=== PATIENT | male | born 1935 | race Caucasian/White ===

== ENCOUNTER 2018-09-29 15:40 | Inpatient (IN) ==
--- NOTE | 2018-09-29 16:16 | ED ---
HPI General Chief complaint: Urogenital-Male Stated complaint: Time Seen by Provider: 09/29/18 16:13 Source: patient Mode of arrival: ambulatory Limitations: no limitations History of Present Illness HPI Narrative: 83-year-old male patient with history of COPD presents to the ER today because he started having blood in his urine and dribbling today. He has not been feeling ill, he denied any fevers, abdominal pains, or other issues. He has not had problems with hematuria in the past. He denies any dysuria. Modifying Factors: None Associated Signs & Symptoms: hematuria Risk Factors: None Related Data Home Medications Medication Instructions Recorded Confirmed aspirin 81 mg PO DAILY 09/29/18 09/29/18 fluticasone-vilanterol [Breo 1 inh INHALATION DAILY 09/29/18 09/29/18 Ellipta] furosemide 20 mg PO DAILY 09/29/18 09/29/18 potassium chloride 10 meq PO BID 09/29/18 09/29/18 Allergies Allergy/AdvReac Type Severity Reaction Status Date / Time No Known Allergies Allergy Verified 09/29/18 16:09 Review of Systems ROS: all other systems reviewed are negative REPLACED BY [facility] Medical History Medical History BPH (benign prostatic hyperplasia) (Acute) COPD (chronic obstructive pulmonary disease) (Acute) Social History Social History Substance History: No History of Abuse Second Hand Smoke Exposure: Yes Smoking Status: Former smoker Tobacco Type: Cigarettes How Often Do You Have a Drink Containing Alcohol: Never Recent Travel in [facility] within the Last 8 Weeks: No Recent Out of Country Travel within the Last 8 Weeks: No Immunization History Tetanus Immunization: Unsure Exam Narrative Exam Narrative: GENERAL: Well-developed elderly white male patient currently in mild distress. Awake and oriented x3. SKIN: Focused skin assessment warm/dry. HEAD: Atraumatic. Normocephalic. EYES: Pupils equal and round. No scleral icterus. No injection or drainage. ENT: No nasal bleeding or discharge. Mucous membranes pink and moist. NECK: Trachea midline. No JVD. CARDIOVASCULAR: Regular rate and rhythm. No murmur appreciated. RESPIRATORY: No accessory muscle use. Mild wheezing bilaterally. Breath sounds equal bilaterally. GASTROINTESTINAL: Abdomen soft, non-tender, nondistended. Hepatic and splenic margins not palpable. GENITOURINARY: Testes descended bilaterally without evidence of rotation. No lesions or erythema. There is notable dribbling and blood clots at the urethral meatus. MUSCULOSKELETAL: No obvious deformities. No clubbing. No cyanosis. No edema. NEUROLOGICAL: Awake and alert. No obvious cranial nerve deficits. Motor grossly within normal limits. Normal speech. PSYCHIATRIC: Appropriate mood and affect; insight and judgment normal. Course Initial Documented Vital Signs Temperature 98.4 F 09/29/18 15:51 Pulse Rate 76 09/29/18 15:51 Respiratory Rate 20 09/29/18 15:51 Blood Pressure 147/65 H 09/29/18 15:51 Pulse Oximetry 97 09/29/18 15:51 Last Documented Vital Signs Temperature 98.4 F 09/29/18 15:51 Pulse Rate 71 09/29/18 17:59 Respiratory Rate 18 09/29/18 17:59 Blood Pressure 150/66 H 09/29/18 17:59 Pulse Oximetry 98 09/29/18 17:59 Sign Out Sign Out Data: Patient Sign Out occurred on 09/29/18 at 18:06. Patient's care was discussed, and care was transferred from Flaco Sidhu MD to Shawanda Fisher. Sign Out Comment: Case is signed out at [address] David awaiting lab work, CAT scan and workup. Disposition based on findings. Last updated by Flaco Sidhu MD at 09/29/18 17:00 Post-Handoff Eval: This patient was signed out to me at 5 PM pending workup for gross hematuria. CT scan is concerning for bladder cancer. This patient has no reliable follow- up. He is being admitted for further evaluation. Discharge Plan Discharge Disposition Patient Disposition: 30 Still Patient Discharge Details Diagnosis: Gross hematuria, Bladder mass Physicians Team ED Provider: Shawanda Fisher Primary Care Provider: UNKNOWN, Rxs /Orders / Referrals /Forms Prescriptions: No Action potassium chloride 10 mEq Tablet Extended Release 10 meq PO BID RF: 0 aspirin 81 mg Tablet,Chewable 81 mg PO DAILY RF: 0 furosemide 20 mg Tablet 20 mg PO DAILY RF: 0 fluticasone-vilanterol [Breo Ellipta] 200-25 mcg/dose Blister With Device 1 inh INHALATION DAILY RF: 0 Discharge Interventions Interventions: Vital Signs Last Done: 09/29/18 17:59 Status ED Status: With Doctor Medical Decision Making MDM Narrative Medical Screen Exam Complete: Yes Emergency Medical Condition: Yes Differential Diagnosis Differential Diagnosis: HematuriaUTI versus gross hematuria versus coagulopathy Lab Data Lab results reviewed: Yes I reviewed the patient's lab results. Result diagrams: 09/29/18 16:30 09/29/18 16:30 Lab Results 09/29/18 09/29/18 09/29/18 Range/Units 16:30 16:30 16:30 WBC 14.0 H (4.0-11.0) th/mm3 RBC 2.88 L (4.50-5.90) mil/mm3 Hgb 9.0 L (13.0-17.0) gm/dL Hct 27.4 L (39.0-51.0) % MCV 95.3 (80.0-100.0) fL MCH 31.2 (27.0-34.0) pg MCHC 32.7 (32.0-36.0) % RDW 15.6 (11.6-17.2) % Plt Count 304 (150-450) th/mm3 MPV 8.8 (7.0-11.0) fL Neut % (Auto) 85.4 H (16.0-70.0) % Lymph % (Auto) 7.0 L (9.0-44.0) % [place] % (Auto) 6.4 (0.0-8.0) % Eos % (Auto) 0.8 (0.0-4.0) % Baso % (Auto) 0.4 (0.0-2.0) % Neut # (Auto) 12.0 H (1.8-7.7) th/mm3 Lymph # (Auto) 1.0 (1.0-4.8) th/mm3 [place] # (Auto) 0.9 (0.0-0.9) th/mm3 Eos # (Auto) 0.1 (0.0-0.4) th/mm3 Baso # (Auto) 0.1 (0.0-0.2) th/mm3 WBC Differential . Differential Comment Auto diff final PT 10.1 (9.8-11.6) sec INR 1.0 Ratio APTT 27.3 (23.4-31.7) sec Sodium 143 (136-145) meq/L Potassium 4.8 (3.5-5.1) meq/L Chloride 107 (98-107) meq/L Carbon Dioxide 32.0 (21.0-32.0) meq/L Anion Gap 4 L (5-15) meq/L BUN 41 H (7-18) mg/dL Creatinine 2.15 H (0.60-1.30) mg/dL Estimated GFR 29 L (>89) mL/min Random Glucose 111 H (74-106) mg/dL Calcium 9.2 (8.5-10.1) mg/dL Urine Color (Yellw/Straw) Urine Clarity (Clear) Urine pH (5.0-8.5) Ur Specific [place] (1.002-1.035) Urine Protein (Neg-Trace) mg/dL Urine Glucose (UA) (Negative) mg/dL Urine Ketones (Negative) mg/dL Urine Occult Blood (Negative) Urine Nitrate (Negative) Urine Bilirubin (Negative) Urine Urobilinogen (Less than 2) mg/dL Ur Leukocyte Esterase (Negative) Urine RBC (0-3) /hpf Urine Bacteria (None) /hpf Micro UA Comment Ur Microscopic Review Urine Culture Comments Blood Type Antibody Screen 09/29/18 09/29/18 Range/Units 16:30 17:48 WBC (4.0-11.0) th/mm3 RBC (4.50-5.90) mil/mm3 Hgb (13.0-17.0) gm/dL Hct (39.0-51.0) % MCV (80.0-100.0) fL MCH (27.0-34.0) pg MCHC (32.0-36.0) % RDW (11.6-17.2) % Plt Count (150-450) th/mm3 MPV (7.0-11.0) fL Neut % (Auto) (16.0-70.0) % Lymph % (Auto) (9.0-44.0) % [place] % (Auto) (0.0-8.0) % Eos % (Auto) (0.0-4.0) % Baso % (Auto) (0.0-2.0) % Neut # (Auto) (1.8-7.7) th/mm3 Lymph # (Auto) (1.0-4.8) th/mm3 [place] # (Auto) (0.0-0.9) th/mm3 Eos # (Auto) (0.0-0.4) th/mm3 Baso # (Auto) (0.0-0.2) th/mm3 WBC Differential Differential Comment PT (9.8-11.6) sec INR Ratio APTT (23.4-31.7) sec Sodium (136-145) meq/L Potassium (3.5-5.1) meq/L Chloride (98-107) meq/L Carbon Dioxide (21.0-32.0) meq/L Anion Gap (5-15) meq/L BUN (7-18) mg/dL Creatinine (0.60-1.30) mg/dL Estimated GFR (>89) mL/min Random Glucose (74-106) mg/dL Calcium (8.5-10.1) mg/dL Urine Color Red (Yellw/Straw) Urine Clarity Cloudy H (Clear) Urine pH 6.0 (5.0-8.5) Ur Specific [place] 1.017 (1.002-1.035) Urine Protein 100 H (Neg-Trace) mg/dL Urine Glucose (UA) 50 (Negative) mg/dL Urine Ketones Negative (Negative) mg/dL Urine Occult Blood Moderate H (Negative) Urine Nitrate Negative (Negative) Urine Bilirubin Negative (Negative) Urine Urobilinogen Less than 2 (Less than 2) mg/dL Ur Leukocyte Esterase Negative (Negative) Urine RBC (0-3) /hpf Urine Bacteria Occasional H (None) /hpf Micro UA Comment Cath-culture ind Ur Microscopic Review Not Reportable Urine Culture Comments Cath-cult indicated Blood Type A Positive Antibody Screen Negative Imaging Data Radiologist's impression: Abdomen/Pelvis CT 09/29/18 16:54 CONCLUSION: 1. Intrinsic urinary bladder mass and eccentric wall thickening along the left side suspicious for neoplasm. 2. Obstructive uropathy with mild to moderate hydronephrosis on the right and moderate to severe hydronephrosis on the left. Ureteral obstruction at the ureterovesical junction is a suspected on the left. Right ureteral obstruction may be due to bladder outlet obstruction. 3. Enlarged prostate which cannot be distinguished from the bladder mass. 4. Campos catheter in place with decompression of the bladder. 5. No evidence of local regional lymphadenopathy, pelvic sidewall involvement or destructive bone lesions. 6. 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
[2018-09-29 16:52] LABS: Baso # (Auto) 0.1 th/mm3 (0.0-0.2); Baso % (Auto) 0.4 % (0.0-2.0); Eos # (Auto) 0.1 th/mm3 (0.0-0.4); Eos % (Auto) 0.8 % (0.0-4.0); Hematocrit 27.4 % (39.0-51.0); Mean Corpuscular HGB Conc 32.7 % (32.0-36.0); Mean Corpuscular Hemoglobin 31.2 pg (27.0-34.0); Mean Corpuscular Volume 95.3 fL (80.0-100.0); Mean Platelet Volume 8.8 fL (7.0-11.0); Mono # (Auto) 0.9 th/mm3 (0.0-0.9); Mono % (Auto) 6.4 % (0.0-8.0); Neut % (Auto) 85.4 % (16.0-70.0); Platelet Count 304 th/mm3 (150-450); Red Blood Count 2.88 mil/mm3 (4.50-5.90); Red Cell Distribution Width 15.6 % (11.6-17.2)
[2018-09-29 17:03] LABS: Activated Partial Thrombo Time 27.3 sec (23.4-31.7); Prothrombin Time 10.1 sec (9.8-11.6)
[2018-09-29 17:05] LABS: Calcium 9.2 mg/dL (8.5-10.1); Potassium 4.8 meq/L (3.5-5.1)
--- NOTE | 2018-09-29 17:51 | CT ---
EXAM DATE: 09/29/2018 5:35 PM EST AGE/SEX: 83 years / Male INDICATIONS: Hematuria. CLINICAL DATA: This is the patient's initial encounter. Patient reports that signs and symptoms have been present for 1 day and indicates a pain score of 0/10. MEDICAL/SURGICAL HISTORY: Chronic obstructive pulmonary disease. Benign prostatic hyperplasia. None. RADIATION DOSE: 7.64 CTDI (mGy) COMPARISON: No prior exams available for comparison. TECHNIQUE: Multiple contiguous axial images were obtained through the abdomen. Images were obtained using multiple row detector helical technique. Using automated exposure control and adjustment of the mA and/or kV according to patient size, radiation dose was kept as low as reasonably achievable to o btain optimal diagnostic quality images. DICOM format image data is available electronically for rev iew and comparison. FINDINGS: Lower Lungs: The visualized lower lungs are clear. Liver: The liver has a homogeneous density without space-occupying lesion. There is no dilation of th e biliary tree. Spleen: Homogeneous density without enlargement. Pancreas: Unremarkable without mass or calcification. Kidneys: The renal collecting systems are dilated bilaterally. There is mild to moderate hydronephro sis on the right and moderate to severe hydronephrosis on the left. Hydroureter is identified in both kidneys extending to the urinary bladder. Adrenal Glands: Unremarkable. Aorta: The aorta and proximal iliac vessels are grossly unremarkable without aneurysmal dilation. Bowel/Mesentery: The bowel loops are grossly unremarkable. The cecum and sigmoid colon have a normal configuration. Abdominal Wall: Small umbilical hernia is identified. Retroperitoneum: No evidence of adenopathy in the retrocrural, para-aortic, or deep pelvic regions. Bladder: Campos catheter is identified in place. Intraluminal filling defects and bladder wall thicke darrian is identified. There is thick eccentric thickening of the bladder wall along the left side measu ring almost 4 cm in thickness. Multiple diverticula are seen along the right lateral bladder wall. Th e prostate is enlarged and cannot be distinguished from the bladder wall thickening. There does not appear to be any pelvic sidewall involvement or significant local regional lymphadenopathy. Reproductive Organs: Enlarged prostate with poor zonal delineation. Left-sided seminal vesicular ang le is obliterated. Inguinal: Small subcentimeter lymph nodes are identified. Bony Structures: Advanced degenerative disc disease is identified in the lumbar spine. There are no lytic or blastic lesions. CONCLUSION: 1. Intrinsic urinary bladder mass and eccentric wall thickening along the left side suspicious for n eoplasm. 2. Obstructive uropathy with mild to moderate hydronephrosis on the right and moderate to severe hyd ronephrosis on the left. Ureteral obstruction at the ureterovesical junction is a suspected on the le ft. Right ureteral obstruction may be due to bladder outlet obstruction. 3. Enlarged prostate which cannot be distinguished from the bladder mass. 4. Campos catheter in place with decompression of the bladder. 5. No evidence of local regional lymphadenopathy, pelvic sidewall involvement or destructive bone le sions. 6. 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 Electronically signed by: Mehran Escalante MD 09/29/2018 5:50 PM EST
[2018-09-29 18:31] LABS: Bacteria,Urine Occasional /hpf; Bilirubin,Urine Negative (Negative); Clarity,Urine Cloudy (Clear); Color,Urine Red (Yellw/Straw); Glucose,Urine (UA) 50 mg/dL (Negative); Leukocyte Esterase,Urine Negative (Negative); Nitrite,Urine Negative (Negative); Specific Gravity,Urine 1.017 (1.002-1.035)
[2018-09-29] MEDS ORDERED: Acetaminophen 325 MG Tablet PO PRN (21:11)
[2018-09-29] MEDS ORDERED: Bisacodyl 10 MG Supp RECTAL PRN (21:11)
[2018-09-29] MEDS ORDERED: Sod Chloride 0.9% Inj 1,000 ML IV.CONT SCH (21:15)
--- NOTE | 2018-09-29 21:23 | P.HP ---
History of Present Illness Service: [facility] Primary Care Physician: UNKNOWN History of Present Illness: 83-year-old male with a past medical history significant for COPD presents to the emergency department for evaluation of hematuria. He reports that last night he started noticing blood in his urine. He states that approximately every 30 minutes he will have involuntary leaking of blood from his penis without urination. This is often preceded by deep pelvic pain. He denies any fever/chills. No urinary retention or difficulty with urination. No burning with urination. The patient denies noticing any clots in his urine. He has never had an episode like this before. He just moved from [place] and has not established with a new primary care provider. He is a poor historian Lasix and Brio although he cannot tell me why he takes the Lasix. He denies any chest pain or shortness of breath. No unintentional weight loss. No weakness/ fatigue. Positive pelvic pain. No nausea/vomiting/diarrhea. No lateralizing signs/symptoms. Inpatient Certification: I certify that the inpatient services were ordered in accordance with Medicare regulations governing the order. This includes certification that hospital inpatient services are reasonable and necessary and in the case of services not specified as inpatient-only under 42 CFR 419.22(n), that they are appropriately provided as inpatient services in accordance to with the 2-midnight benchmark under 43 CFR 412.3(e) Review of Systems All other systems reviewed negative except as stated in HPI [facility] - History History Provided By: Patient - Medical History Medical History: Medical History (Last Reviewed 09/29/18 @ 21:17 by Ashwini Silva MD) BPH (benign prostatic hyperplasia) COPD (chronic obstructive pulmonary disease) - Surgical History Surgical History: Surgical History (Last Updated 09/29/18 @ 21:17 by Ashwini Silva MD) No history of previous surgery - Family History Family History: Family History (Last Updated 09/29/18 @ 21:17 by Ashwini Silva MD) Other Family history normal - Tobacco History Second Hand Smoke Exposure: Yes Tobacco Use In Past 30 Days: Yes Smoking Status: Former smoker Tobacco Type: Cigarettes - Alcohol History How Often Do You Have a Drink Containing Alcohol: Never - Substance Use History Substance History: No History of Abuse - Travel History Recent Travel in the [place] Within the Last 8 Weeks: No Recent Travel Out of the Country Within the Last 8 Weeks: No - Immunization History Tetanus Immunization: Unsure Medications and Allergies Active Medications: Active Medications Acetaminophen (Tylenol) 650 mg PO Q4H PRN PRN Reason: Temp > 100.4 Al Hydroxide/Mg Hydroxide (Milk Of Magnesia Liq) 30 ml PO Q12H PRN PRN Reason: Mild Constipation Bisacodyl (Dulcolax Supp) 10 mg RECTAL DAILY PRN PRN Reason: SEVERE CONSITIPATION Fluticasone/Vilanterol (Breo Ellipta 200/25 Mcg Inh) puff INH DAILY HO Furosemide (Lasix) 20 mg PO DAILY HO Sodium Chloride (Ns Inj) 1,000 mls @ 100 mls/hr IV.CONT .Q10H HO Lactulose (Lactulose Liq) 30 ml PO DAILY PRN PRN Reason: SEVERE CONSITIPATION Ondansetron HCl (Zofran Inj) 4 mg IV.PUSH Q6H PRN PRN Reason: NAUSEA OR VOMITING Potassium Chloride (Klor-Con 10) 10 meq PO BID HO Senna/Docusate Sodium (Kristin-Colace) 1 tab PO BID HO Sennosides (Senokot) 17.2 mg PO Q12H PRN PRN Reason: Moderate Constipation Allergies Allergy/AdvReac Type Severity Reaction Status Date / Time No Known Allergies Allergy Verified 09/29/18 16:09 Home Medications Medication Instructions Recorded Confirmed Type aspirin 81 mg PO DAILY 09/29/18 09/29/18 History fluticasone-vilanterol [Breo 1 inh INHALATION DAILY 09/29/18 09/29/18 History Ellipta] furosemide 20 mg PO DAILY 09/29/18 09/29/18 History potassium chloride 10 meq PO BID 09/29/18 09/29/18 History Exam Vital signs: Vital Signs 09/29/18 15:51 09/29/18 15:55 09/29/18 17:59 Temperature 98.4 F Pulse Rate 76 77 71 Respiratory Rate 20 18 18 Blood Pressure 147/65 H 167/77 H 150/66 H Pulse Oximetry 97 99 98 Intake & Output 09/29/18 09/29/18 09/30/18 06:59 18:59 06:59 Weight 82.554 kg Narrative: Gen.: No acute distress Head: Normocephalic. Atraumatic. EENT: Pupils equal round and reactive to light. Nose without drainage. Airway intact. Throat without injection. Cardiovascular: Regular rate and rhythm. No murmurs, rubs or gallops. Respiratory: Lungs clear to auscultation bilaterally. No wheezes or rhonchi. Abdomen: Soft, nontender, nondistended. No peritoneal signs. Musculoskeletal: No gross deformities. No edema. Skin: No obvious rashes or erythema. Neuro: Sensory and motor grossly intact. Cranial nerves II through XII grossly intact. Results - Labs CBC & Chem 7: 09/29/18 16:30 09/29/18 16:30 Labs: Laboratory Results - last 24 hr 09/29/18 09/29/18 09/29/18 16:30 16:30 16:30 WBC 14.0 H RBC 2.88 L Hgb 9.0 L Hct 27.4 L MCV 95.3 MCH 31.2 MCHC 32.7 RDW 15.6 Plt Count 304 MPV 8.8 Neut % (Auto) 85.4 H Lymph % (Auto) 7.0 L [place] % (Auto) 6.4 Eos % (Auto) 0.8 Baso % (Auto) 0.4 Neut # (Auto) 12.0 H Lymph # (Auto) 1.0 [place] # (Auto) 0.9 Eos # (Auto) 0.1 Baso # (Auto) 0.1 WBC Differential . Differential Comment Auto diff final PT 10.1 INR 1.0 APTT 27.3 Sodium 143 Potassium 4.8 Chloride 107 Carbon Dioxide 32.0 Anion Gap 4 L BUN 41 H Creatinine 2.15 H Estimated GFR 29 L Random Glucose 111 H Calcium 9.2 Urine Color Urine Clarity Urine pH Ur Specific [place] Urine Protein Urine Glucose (UA) Urine Ketones Urine Occult Blood Urine Nitrate Urine Bilirubin Urine Urobilinogen Ur Leukocyte Esterase Urine RBC Urine Bacteria Micro UA Comment Ur Microscopic Review Urine Culture Comments Blood Type Antibody Screen 09/29/18 09/29/18 16:30 17:48 WBC RBC Hgb Hct MCV MCH MCHC RDW Plt Count MPV Neut % (Auto) Lymph % (Auto) [place] % (Auto) Eos % (Auto) Baso % (Auto) Neut # (Auto) Lymph # (Auto) [place] # (Auto) Eos # (Auto) Baso # (Auto) WBC Differential Differential Comment PT INR APTT Sodium Potassium Chloride Carbon Dioxide Anion Gap BUN Creatinine Estimated GFR Random Glucose Calcium Urine Color Red Urine Clarity Cloudy H Urine pH 6.0 Ur Specific [place] 1.017 Urine Protein 100 H Urine Glucose (UA) 50 Urine Ketones Negative Urine Occult Blood Moderate H Urine Nitrate Negative Urine Bilirubin Negative Urine Urobilinogen Less than 2 Ur Leukocyte Esterase Negative Urine RBC Urine Bacteria Occasional H Micro UA Comment Cath-culture ind Ur Microscopic Review Not Reportable Urine Culture Comments Cath-cult indicated Blood Type A Positive Antibody Screen Negative - Imaging Impressions Abdomen/Pelvis CT 09/29/18 16:54 CONCLUSION: 1. Intrinsic urinary bladder mass and eccentric wall thickening along the left side suspicious for neoplasm. 2. Obstructive uropathy with mild to moderate hydronephrosis on the right and moderate to severe hydronephrosis on the left. Ureteral obstruction at the ureterovesical junction is a suspected on the left. Right ureteral obstruction may be due to bladder outlet obstruction. 3. Enlarged prostate which cannot be distinguished from the bladder mass. 4. Campos catheter in place with decompression of the bladder. 5. No evidence of local regional lymphadenopathy, pelvic sidewall involvement or destructive bone lesions. 6. 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 Caprini VTE Risk Assessment Caprini VTE Risk Assessment: Moderate/High Risk (score >= 2) Caprini Risk Assessment Model: Point Value = 1 Point Value = 2 Point Value = 3 Point Value = 5 Age 41-60 Minor surgery BMI > 25 kg/m2 Swollen legs Varicose veins or History of unexplained or recurrent spontaneous Oral contraceptives or hormone replacement Sepsis (< 1 month) Serious lung disease, including pneumonia (< 1 month) Abnormal pulmonary function Acute myocardial infarction Congestive heart failure (< 1 month) History of inflammatory bowel disease Medical patient at bed rest Age 61-74 Arthroscopic surgery Major open surgery (> 45 min) Laparoscopic surgery (> 45 min) Malignancy Confined to bed (> 72 hours) Immobilizing plaster cast Central venous access Age >= 75 History of VTE Family history of VTE Factor V Leiden Prothrombin 17005A Lupus anticoagulant Anticardiolipin antibodies Elevated serum homocysteine Heparin-induced thrombocytopenia Other congenital or acquired thrombophilia Stroke (< 1 month) Elective arthroplasty Hip, pelvis, or leg fracture Acute spinal cord injury (< 1 month) Prophylaxis Regimen: Total Risk Factor Score Risk Level Prophylaxis Regimen 0-1 Low Early ambulation 2 Moderate Order ONE of the following: *Sequential Compression Device (SCD) *Heparin 5000 units SQ BID 3-4 Higher Order ONE of the following medications: *Heparin 5000 units SQ TID *Enoxaparin/Lovenox 40 mg SQ daily (WT < 150 kg, CrCl > 30 mL/min) *Enoxaparin/Lovenox 30 mg SQ daily (WT < 150 kg, CrCl > 10-29 mL/min) *Enoxaparin/Lovenox 30 mg SQ BID (WT < 150 kg, CrCl > 30 mL/min) AND/OR *Sequential Compression Device (SCD) 5 or more Highest Order ONE of the following medications: *Heparin 5000 units SQ TID (Preferred with Epidurals) *Enoxaparin/Lovenox 40 mg SQ daily (WT < 150 kg, CrCl > 30 mL/min) *Enoxaparin/Lovenox 30 mg SQ daily (WT < 150 kg, CrCl > 10-29 mL/min) *Enoxaparin/Lovenox 30 mg SQ BID (WT < 150 kg, CrCl > 30 mL/min) AND *Sequential Compression Device (SCD) Assessment and Plan - Plan Assessment/plan: 1. Hematuria/anemia H&H 9.0/27.4 Serial H&H Transfuse as needed CT of the abdomen and pelvis significant for intrinsic urinary bladder mass and wall thickening along the left side suspicious for neoplasm. Obstructive uropathy with mild to moderate hydronephrosis on the right and moderate to severe hydronephrosis on the left. Obstruction at the ureterovesical junction is suspected on the left right ureteral obstruction may be secondary to bladder outlet obstruction. Enlarged prostate which cannot be distinguished from the bladder mass. Urology consulted, appreciate assistance 2. Acute kidney injury/obstructive uropathy Creatinine 2.15, baseline unknown CT results as above Urology consulted as above 3. COPD Continue home Breo FEN N.p.o. Electrolytes: Monitor and replete as needed Avoiding pharmacologic anticoagulation secondary to hematuria/anemia
[2018-09-30 01:00] LABS: Hemoglobin 8.3 gm/dL (13.0-17.0)
[2018-09-30 07:45] LABS: Baso # (Auto) 0.1 th/mm3 (0.0-0.2); Baso % (Auto) 0.7 % (0.0-2.0); Eos % (Auto) 0.2 % (0.0-4.0); Hematocrit 27.8 % (39.0-51.0); Hemoglobin 8.7 gm/dL (13.0-17.0); Lymph # (Auto) 0.7 th/mm3 (1.0-4.8); Lymph % (Auto) 4.5 % (9.0-44.0); Mean Corpuscular HGB Conc 31.3 % (32.0-36.0); Mean Platelet Volume 8.2 fL (7.0-11.0); Mono # (Auto) 0.8 th/mm3 (0.0-0.9); Mono % (Auto) 5.2 % (0.0-8.0); Neut # (Auto) 14.4 th/mm3 (1.8-7.7); Neut % (Auto) 89.4 % (16.0-70.0); Platelet Count 298 th/mm3 (150-450); Red Cell Distribution Width 16.1 % (11.6-17.2); White Blood Count 16.1 th/mm3 (4.0-11.0)
[2018-09-30 08:07] LABS: Alanine Aminotransferase 14 U/L (12-78); Albumin 2.7 g/dL (3.4-5.0); Anion Gap 7 meq/L (5-15); Aspartate Aminotransferase 18 U/L (15-37); Blood Urea Nitrogen 46 mg/dL (7-18); Calcium 9.1 mg/dL (8.5-10.1); Carbon Dioxide 27.8 meq/L (21.0-32.0); Chloride 110 meq/L (98-107); Glomerular Filtration Rate 22 mL/min (>89); Glucose,Random 106 mg/dL (74-106); Potassium 4.7 meq/L (3.5-5.1); Sodium 145 meq/L (136-145)
[2018-09-30 08:10] LABS: Alkaline Phosphatase 58 U/L (45-117); Total Protein 7.3 g/dL (6.4-8.2)
[2018-09-30] MEDS ORDERED: Furosemide 20 MG Tablet PO SCH (09:00)
[2018-09-30] MEDS ORDERED: Belladonna Alkaloid/Opium 60 MG Supp RECTAL PRN (10:17)
[2018-09-30] MEDS: Senna/Docusate Sodium 8.6/50 MG Tablet PO SCH ×2 (10:18→21:48)
[2018-09-30] MEDS: Dextrose 5%/NaCl 0.45% Inj 1,000 ML IV.CONT SCH ×2 (11:56→23:12)
--- NOTE | 2018-09-30 14:06 | P.PNIM ---
Subjective Interval history: 83yo m admitted with gross hematuria found to have a bladder mass. pt seen and examined doing fair, still with gross hematuria complaining of abd pain and cramping, pelvic spasms, denies sob, cp, nv, wants to eat. Physical Exam Vital signs: Last Vital Signs Temp 97.6 F 09/30/18 12:00 Pulse 75 09/30/18 12:00 Resp 17 09/30/18 12:00 BP 163/76 H 09/30/18 12:00 Pulse Ox 97 09/30/18 12:00 Intake & Output 09/28/18 09/29/18 09/30/18 10/01/18 06:59 06:59 06:59 06:59 Intake Total 50 / 50 Balance 50 / 50 Weight 79.1 kg pleasant 83yo w m nad, ox3 mild forgetful heart s1s2 reg no sig mr clicks lungs trace wheeze, no rhonchi full expansion abd soft nondt min tender pos bs ext no edema, no calf tenderness. Urinary Catheter Management Indwelling Urethral Catheter: Cath placed during this visit: yes Urethral indwelling: Yes Reason for continuing: Gross Hematuria Insertion date: 09/29/18 Insertion time: 17:20 Results Labs CBC & Chem 7: 09/30/18 07:29 09/30/18 07:29 Labs: Microbiology 09/29/18 17:48 Catheterized Urine Urine Culture - Preliminary No growth in 24 hours Imaging Imaging: Impressions Abdomen/Pelvis CT 09/29/18 16:54 CONCLUSION: 1. Intrinsic urinary bladder mass and eccentric wall thickening along the left side suspicious for neoplasm. 2. Obstructive uropathy with mild to moderate hydronephrosis on the right and moderate to severe hydronephrosis on the left. Ureteral obstruction at the ureterovesical junction is a suspected on the left. Right ureteral obstruction may be due to bladder outlet obstruction. 3. Enlarged prostate which cannot be distinguished from the bladder mass. 4. Campos catheter in place with decompression of the bladder. 5. No evidence of local regional lymphadenopathy, pelvic sidewall involvement or destructive bone lesions. 6. 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 Assessment and Plan Plan - GROSS HEMATURIA due to bladder mass? - cbi, urology eval - ACUTE RENAL FAILURE DUE TO OBSTRUCTIVE UROPATHY - monitor renal function, consult urology, - BLADDER MASS and HYDRONEPRHOSIS B/L concern for malignancy - urology eval - ANEMIA of acute blood loss due to hematuria, transfuse prn as indicated - HTN - cont bp control - COPD w chronic hypoxic respiratory failure and home o2, stable, breo nebs prn. DISPO - home resume oxygen when ok w urology, hematuria resolved and renal function stable DVT prophylaxis - scd, anticoagulants ci due to hematuria Code Status: full Discussed Condition With: patient
--- NOTE | 2018-09-30 14:49 | P.CONURO ---
History of Present Illness Service: urology Consult date: 09/30/18 Requesting Physician: Meli Grayson Reason for Consult: Hematuria, bladder mass Primary Care Provider: UNKNOWN Chief Complaint: hematuria History of Present Illness: 83-year-old male with a past medical history significant for COPD presents to the emergency department for evaluation of hematuria. He reports that last night he started noticing blood in his urine. He states that approximately every 30 minutes he will have involuntary leaking of blood from his penis without urination. This is often preceded by deep pelvic pain. He denies any fever/chills. No urinary retention or difficulty with urination. No burning with urination. The patient denies noticing any clots in his urine. He has never had an episode like this before. He just moved from [place] and has not established with a new primary care provider. No unintentional weight loss. No weakness/fatigue. Positive pelvic pain. No nausea/vomiting/ diarrhea. No lateralizing signs/symptoms. Urology consulted due to hematuria and suspicious bladder mass vs BPH on CT scan as well as obstructive uropathy. VS are stable. Labs are stable too, has minor leukocytosis. UC no growth. He is on CBI now, urine is light pink Review of Systems All other systems reviewed negative except as stated in HPI PMFSH - History History Provided By: Patient - Medical History Medical History: Medical History (Last Reviewed 09/29/18 @ 21:17 by Ashwini Silva MD) BPH (benign prostatic hyperplasia) COPD (chronic obstructive pulmonary disease) - Surgical History Surgical History: Surgical History (Last Updated 09/29/18 @ 21:17 by Ashwini Silva MD) No history of previous surgery - Family History Family History: Family History (Last Updated 09/29/18 @ 21:17 by Ashwini Silva MD) Other Family history normal - Tobacco History Second Hand Smoke Exposure: Yes Tobacco Use In Past 30 Days: Yes Smoking Status: Former smoker Tobacco Type: Cigarettes - Alcohol History How Often Do You Have a Drink Containing Alcohol: Never - Substance Use History Substance History: No History of Abuse - Travel History Recent Travel in the [place] Within the Last 8 Weeks: No Recent Travel Out of the Country Within the Last 8 Weeks: No - Immunization History Tetanus Immunization: Unsure Medications and Allergies Active Medications: Active Medications Acetaminophen (Tylenol) 650 mg PO Q4H PRN PRN Reason: Temp > 100.4 Al Hydroxide/Mg Hydroxide (Milk Of Magnesia Liq) 30 ml PO Q12H PRN PRN Reason: Mild Constipation Belladonna Alkaloids/Opium (B & O Supp) 60 mg RECTAL Q6HR PRN PRN Reason: BLADDER SPASM Bisacodyl (Dulcolax Supp) 10 mg RECTAL DAILY PRN PRN Reason: SEVERE CONSITIPATION Fluticasone/Vilanterol (Breo Ellipta 200/25 Mcg Inh) 1 puff INH DAILY [facility] Last Admin: 09/30/18 10:18 Dose: 1 puff Dextrose/Sodium Chloride (D5w/1/2 Ns Inj) 1,000 mls @ 100 mls/hr IV.CONT .Q10H [facility] Last Admin: 09/30/18 11:56 Dose: 100 mls/hr Lactulose (Lactulose Liq) 30 ml PO DAILY PRN PRN Reason: SEVERE CONSITIPATION Ondansetron HCl (Zofran Inj) 4 mg IV.PUSH Q6H PRN PRN Reason: NAUSEA OR VOMITING Senna/Docusate Sodium (Kristin-Colace) 1 tab PO BID [facility] Last Admin: 09/30/18 10:18 Dose: 1 tab Sennosides (Senokot) 17.2 mg PO Q12H PRN PRN Reason: Moderate Constipation Allergies Allergy/AdvReac Type Severity Reaction Status Date / Time No Known Allergies Allergy Verified 09/29/18 16:09 Home Medications Medication Instructions Recorded Confirmed Type aspirin 81 mg PO DAILY 09/29/18 09/29/18 History fluticasone-vilanterol [Breo 1 inh INHALATION DAILY 09/29/18 09/29/18 History Ellipta] furosemide 20 mg PO DAILY 09/29/18 09/29/18 History potassium chloride 10 meq PO BID 09/29/18 09/29/18 History Physical Exam Vital Signs - 24 hr 09/29/18 15:51 09/29/18 15:55 09/29/18 17:59 Temperature 98.4 F Pulse Rate 76 77 71 Respiratory Rate 20 18 18 Blood Pressure 147/65 H 167/77 H 150/66 H Pulse Oximetry 97 99 98 09/29/18 21:51 09/30/18 00:00 09/30/18 08:00 Temperature 98.1 F 98.2 F Pulse Rate 92 H 77 Respiratory Rate 22 18 18 Blood Pressure 160/69 H 137/63 161/81 H Pulse Oximetry 94 L 95 09/30/18 12:00 Temperature 97.6 F Pulse Rate 75 Respiratory Rate 17 Blood Pressure 163/76 H Pulse Oximetry 97 Physical Exam: GENERAL: This is a well-nourished, well-developed patient, in no apparent distress. CARDIOVASCULAR: Regular rate and rhythm without murmurs, gallops, or rubs. RESPIRATORY: Clear to auscultation. Breath sounds equal bilaterally. No wheezes , rales, or rhonchi. GASTROINTESTINAL: Abdomen soft, non-tender, nondistended. . GENITOURINARY: Alfaro in place. no CVAT MUSCULOSKELETAL: Extremities without clubbing, cyanosis, or edema. NEUROLOGICAL: Awake and alert. Laboratory Results - last 24 hr 09/29/18 09/29/18 09/29/18 16:30 16:30 16:30 WBC 14.0 H RBC 2.88 L Hgb 9.0 L Hct 27.4 L MCV 95.3 MCH 31.2 MCHC 32.7 RDW 15.6 Plt Count 304 MPV 8.8 Neut % (Auto) 85.4 H Lymph % (Auto) 7.0 L Andrews % (Auto) 6.4 Eos % (Auto) 0.8 Baso % (Auto) 0.4 Neut # (Auto) 12.0 H Lymph # (Auto) 1.0 Andrews # (Auto) 0.9 Eos # (Auto) 0.1 Baso # (Auto) 0.1 WBC Differential . Differential Comment Auto diff final PT 10.1 INR 1.0 APTT 27.3 Sodium 143 Potassium 4.8 Chloride 107 Carbon Dioxide 32.0 Anion Gap 4 L BUN 41 H Creatinine 2.15 H Estimated GFR 29 L Random Glucose 111 H Calcium 9.2 Total Bilirubin AST ALT Alkaline Phosphatase Total Protein Albumin Urine Color Urine Clarity Urine pH Ur Specific [place] Urine Protein Urine Glucose (UA) Urine Ketones Urine Occult Blood Urine Nitrate Urine Bilirubin Urine Urobilinogen Ur Leukocyte Esterase Urine RBC Urine Bacteria Micro UA Comment Ur Microscopic Review Urine Culture Comments Blood Type Antibody Screen 09/29/18 09/29/18 09/30/18 16:30 17:48 00:30 WBC RBC Hgb 8.3 L Hct 26.0 L MCV MCH MCHC RDW Plt Count MPV Neut % (Auto) Lymph % (Auto) Andrews % (Auto) Eos % (Auto) Baso % (Auto) Neut # (Auto) Lymph # (Auto) Andrews # (Auto) Eos # (Auto) Baso # (Auto) WBC Differential Differential Comment PT INR APTT Sodium Potassium Chloride Carbon Dioxide Anion Gap BUN Creatinine Estimated GFR Random Glucose Calcium Total Bilirubin AST ALT Alkaline Phosphatase Total Protein Albumin Urine Color Red Urine Clarity Cloudy H Urine pH 6.0 Ur Specific [place] 1.017 Urine Protein 100 H Urine Glucose (UA) 50 Urine Ketones Negative Urine Occult Blood Moderate H Urine Nitrate Negative Urine Bilirubin Negative Urine Urobilinogen Less than 2 Ur Leukocyte Esterase Negative Urine RBC Urine Bacteria Occasional H Micro UA Comment Cath-culture ind Ur Microscopic Review Not Reportable Urine Culture Comments Cath-cult indicated Blood Type A Positive Antibody Screen Negative 09/30/18 09/30/18 07:29 07:29 WBC 16.1 H RBC 2.90 L Hgb 8.7 L Hct 27.8 L MCV 96.0 MCH 30.0 MCHC 31.3 L RDW 16.1 Plt Count 298 MPV 8.2 Neut % (Auto) 89.4 H Lymph % (Auto) 4.5 L Andrews % (Auto) 5.2 Eos % (Auto) 0.2 Baso % (Auto) 0.7 Neut # (Auto) 14.4 H Lymph # (Auto) 0.7 L Andrews # (Auto) 0.8 Eos # (Auto) 0.0 Baso # (Auto) 0.1 WBC Differential . Differential Comment Auto diff final PT INR APTT Sodium 145 Potassium 4.7 Chloride 110 H Carbon Dioxide 27.8 Anion Gap 7 BUN 46 H Creatinine 2.81 H Estimated GFR 22 L Random Glucose 106 Calcium 9.1 Total Bilirubin 0.2 AST 18 ALT 14 Alkaline Phosphatase 58 Total Protein 7.3 Albumin 2.7 L Urine Color Urine Clarity Urine pH Ur Specific [place] Urine Protein Urine Glucose (UA) Urine Ketones Urine Occult Blood Urine Nitrate Urine Bilirubin Urine Urobilinogen Ur Leukocyte Esterase Urine RBC Urine Bacteria Micro UA Comment Ur Microscopic Review Urine Culture Comments Blood Type Antibody Screen Microbiology 09/29/18 17:48 Urine Culture - Preliminary Catheterized Urine No growth in 24 hours Result Diagrams: 09/30/18 07:29 09/30/18 07:29 Imaging: ITS Impressions Abdomen/Pelvis CT 09/29/18 16:54 CONCLUSION: 1. Intrinsic urinary bladder mass and eccentric wall thickening along the left side suspicious for neoplasm. 2. Obstructive uropathy with mild to moderate hydronephrosis on the right and moderate to severe hydronephrosis on the left. Ureteral obstruction at the ureterovesical junction is a suspected on the left. Right ureteral obstruction may be due to bladder outlet obstruction. 3. Enlarged prostate which cannot be distinguished from the bladder mass. 4. Alfaro catheter in place with decompression of the bladder. 5. No evidence of local regional lymphadenopathy, pelvic sidewall involvement or destructive bone lesions. 6. 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 Assessment and Plan - Plan 83y.o M with hx as per HPI - No acute intervention needed - Continue care as per primary team - Continue CBI and wean off once urine clears up and alfaro can be removed - Start Flomax and Proscar daily - Antbx due to leukocytosis - Renal US in 48hrs after alfaro placement to f/u on hydro - Needs to see Dr Eric SIMPSON attending as outpt for cystoscopy Discussed Condition With: Dr Eric SIMPSON attending and pr's RN
[2018-09-30 17:43] LABS: Baso % (Auto) 0.2 % (0.0-2.0); Eos # (Auto) 0.1 th/mm3 (0.0-0.4); Eos % (Auto) 0.6 % (0.0-4.0); Hematocrit 25.2 % (39.0-51.0); Hemoglobin 8.3 gm/dL (13.0-17.0); Lymph # (Auto) 0.8 th/mm3 (1.0-4.8); Lymph % (Auto) 5.2 % (9.0-44.0); Mean Corpuscular HGB Conc 32.8 % (32.0-36.0); Mean Corpuscular Hemoglobin 31.1 pg (27.0-34.0); Mean Corpuscular Volume 94.7 fL (80.0-100.0); Mean Platelet Volume 8.5 fL (7.0-11.0); Mono # (Auto) 1.1 th/mm3 (0.0-0.9); Mono % (Auto) 6.9 % (0.0-8.0); Neut # (Auto) 13.9 th/mm3 (1.8-7.7); Neut % (Auto) 87.1 % (16.0-70.0); Platelet Count 301 th/mm3 (150-450); Red Blood Count 2.66 mil/mm3 (4.50-5.90); Red Cell Distribution Width 15.8 % (11.6-17.2)
[2018-09-30 18:06] LABS: Calcium 8.7 mg/dL (8.5-10.1); Carbon Dioxide 28.3 meq/L (21.0-32.0)
[2018-09-30] MEDS: Finasteride 5 MG Tablet PO SCH (19:04)
[2018-09-30 23:48] LABS: Hematocrit 24.4 % (39.0-51.0); Hemoglobin 7.9 gm/dL (13.0-17.0); Mean Corpuscular HGB Conc 32.2 % (32.0-36.0); Mean Corpuscular Hemoglobin 30.6 pg (27.0-34.0); Mean Platelet Volume 8.3 fL (7.0-11.0); Platelet Count 269 th/mm3 (150-450); Red Blood Count 2.57 mil/mm3 (4.50-5.90); Red Cell Distribution Width 15.4 % (11.6-17.2); White Blood Count 14.8 th/mm3 (4.0-11.0)
[2018-10-01 06:32] LABS: Calcium 8.6 mg/dL (8.5-10.1); Carbon Dioxide 29.9 meq/L (21.0-32.0); Potassium 4.8 meq/L (3.5-5.1)
[2018-10-01] MEDS: Senna/Docusate Sodium 8.6/50 MG Tablet PO SCH ×2 (09:20→20:51)
[2018-10-01] MEDS: Dextrose 5%/NaCl 0.45% Inj 1,000 ML IV.CONT SCH ×3 (09:21→20:53)
--- NOTE | 2018-10-01 16:35 | P.PNIM ---
Subjective Interval history: 83yo m admitted with gross hematuria found to have a bladder mass. pt seen and examined this morning he is doing better, cbi running, and gross bleeding resolved still some pink tinge, states pain improved denies cp but having some wheezing better with neb tx Physical Exam Vital signs: Last Vital Signs Temp 97.8 F 10/01/18 12:00 Pulse 82 10/01/18 12:00 Resp 18 10/01/18 12:00 BP 132/58 L 10/01/18 12:00 Pulse Ox 94 L 10/01/18 12:00 Intake & Output 09/29/18 09/30/18 10/01/18 10/02/18 06:59 06:59 06:59 06:59 Intake Total 50 / 50 1880 / 1880 1000 / 1000 Balance 50 / 50 1880 / 1880 1000 / 1000 Weight 79.1 kg 79.1 kg pleasant 83yo w m nad, aaox3 mild forgetful respond appropriately heart s1s2 reg no sig mr clicks lungs coarse wheeze and decreased air movment abd soft nondt min tender pos bs ext no sig edema, no calf tenderness. pulses palp Urinary Catheter Management Indwelling Urethral Catheter: Cath placed during this visit: yes Urethral indwelling: Yes Reason for continuing: Gross Hematuria Insertion date: 09/29/18 Insertion time: 17:20 Results Labs CBC & Chem 7: 10/02/18 05:56 10/01/18 05:09 Labs: Microbiology 09/29/18 17:48 Catheterized Urine Urine Culture - Final No growth in 48 hours Assessment and Plan Plan - GROSS HEMATURIA due to bladder mass? - cbi, urology eval appreciated, will need to follow up as outpt, hold any anticoagulants - ACUTE RENAL FAILURE DUE TO OBSTRUCTIVE UROPATHY - cr up to 3.34, will continue to monitor, - BLADDER MASS causing HYDRONEPRHOSIS B/L L>R, concern for malignancy - urology eval, get psa, hx BPH - ANEMIA of acute blood loss due to hematuria, significant drop in hh, currently hemodynamically stable and bleeding seems to be resolving, will transfuse if hgb <7 - HTN - cont bp control - COPD w chronic hypoxic respiratory failure and home o2, stable, breo nebs prn , seems to have mild exacerbation of copd unless due to mild fluid overload, we held his normal home lasix due to his renal funciton, add burst of steroids for bronchospasm DISPO - return to [facility] w home oxygen when ok w urology, if hematuria resolved and renal function and hgb stable DVT prophylaxis - scd, anticoagulants ci due to hematuria Progress Note: Quality VTE Deep Vein Thrombosis/Pulmonary Embolism Present on Admission: No
[2018-10-01] MEDS ORDERED: predniSONE 10 MG Tablet PO ONE (16:39)
[2018-10-01] MEDS: Finasteride 5 MG Tablet PO SCH (18:21)
[2018-10-02] MEDS: Dextrose 5%/NaCl 0.45% Inj 1,000 ML IV.CONT SCH ×3 (04:23→23:23)
[2018-10-02 07:37] LABS: Hematocrit 25.4 % (39.0-51.0); Mean Corpuscular HGB Conc 31.5 % (32.0-36.0); Mean Corpuscular Volume 95.3 fL (80.0-100.0); Platelet Count 270 th/mm3 (150-450); Red Blood Count 2.66 mil/mm3 (4.50-5.90); Red Cell Distribution Width 15.3 % (11.6-17.2); White Blood Count 14.5 th/mm3 (4.0-11.0)
[2018-10-02] MEDS: Senna/Docusate Sodium 8.6/50 MG Tablet PO SCH ×2 (08:20→20:05)
--- NOTE | 2018-10-02 13:29 | US ---
EXAM DATE: 10/02/2018 1:20 PM EST AGE/SEX: 83 years / Male INDICATIONS: Hydronephrosis. CLINICAL DATA: This is the patient's initial encounter. Patient reports that signs and symptoms have been present for 3 days and indicates a pain score of 1/10. MEDICAL/SURGICAL HISTORY: Chronic obstructive pulmonary disease. BPH. None. COMPARISON: [facility], CT ABDOMEN & PELVIS W/O CONTRAST, 09/29/2018. . MEASUREMENTS: Right Kidney:__10.0 x 5.5 x 4.9 cm Left Kidney:__12.3 x 5.3 x 6.2 cm FINDINGS: Right Kidney: Moderate hydronephrosis Left Kidney: Moderate hydronephrosis Bladder: Campos balloon seen in the urinary bladder which is distended and notable for pronounced irre gular wall thickening Other: None. CONCLUSION: 1. Distended bladder despite Campos. 2. Bilateral hydronephrosis Electronically signed by: Ge Grimaldo MD 10/02/2018 1:28 PM EST
--- NOTE | 2018-10-02 13:52 | P.PNIM ---
Subjective Interval history: 83yo m admitted with gross hematuria found to have a bladder mass. pt seen and examined doing ok, states breathing is better, no sob, no cp, no nv , hematuria is better, no fever. Physical Exam Vital signs: Last Vital Signs Temp 97.8 F 10/02/18 12:00 Pulse 79 10/02/18 12:49 Resp 20 10/02/18 12:49 BP 161/75 H 10/02/18 12:00 Pulse Ox 94 L 10/02/18 12:00 Intake & Output 09/30/18 10/01/18 10/02/18 10/03/18 06:59 06:59 06:59 06:59 Intake Total 50 / 50 1880 / 1880 4000 / 4000 Output Total 2700 / 2700 Balance 50 / 50 1880 / 1880 1300 / 1300 Weight 79.1 kg 79.1 kg 83.2 kg pleasant 83yo w m nad, aaox3 mild forgetful responds appropriately heart s1s2 reg no sig mr ,clicks lungs coarse wheeze and decreased air movment better air movment today abd soft nondt min tender pos bs ext no sig edema, no calf tenderness. pulses palp Urinary Catheter Management Indwelling Urethral Catheter: Cath placed during this visit: yes Urethral indwelling: Yes Reason for continuing: Gross Hematuria Insertion date: 09/29/18 Insertion time: 17:20 Results Labs CBC & Chem 7: 10/02/18 05:56 10/01/18 05:09 Labs: Microbiology 09/29/18 17:48 Catheterized Urine Urine Culture - Final No growth in 48 hours Imaging Imaging: Impressions Abdomen/Bladder Ultrasound 10/02/18 00:00 CONCLUSION: 1. Distended bladder despite Campos. 2. Bilateral hydronephrosis Assessment and Plan Plan - GROSS HEMATURIA due to bladder mass - better s/p cbi, urology eval appreciated, will need to follow up as outpt, hold any anticoagulants, for now - ACUTE RENAL FAILURE DUE TO OBSTRUCTIVE UROPATHY - cr up to 3.34,continue ivf and - BLADDER MASS suspected causing HYDRONEPRHOSIS B/L L>R, concern for malignancy - urology f/u, hx BPH, due to worsening cr, in spite of ifv, will require IR perc nephrostomy tube, discussed w Urology, [place]arien Caicedo for now and possibly right as well. - ANEMIA of acute blood loss due to hematuria, significant drop in hh, currently hemodynamically stable and bleeding seems to be resolving, will transfuse if hgb <7 - HTN - uncontrolled, his normal lasix is on hold due to renal function, will add low dose norvasc - COPD w CHRONIC HYPOXIC RESPIRATORY FIALURE, home o2 dependent, better, cont home breo nebs prn, mild exacerbation of copd improved s/p 1 dose oral prednisone, DISPO - return to [facility] w home oxygen when ok w urology, if hematuria resolved and renal function and hgb stable DVT prophylaxis - scd, anticoagulants ci due to hematuria Progress Note: Quality VTE Deep Vein Thrombosis/Pulmonary Embolism Present on Admission: No
[2018-10-02] MEDS ORDERED: fentaNYL Citrate Inj 250 MCG/5 ML Ampul ONE (14:58)
[2018-10-02] MEDS ORDERED: Levofloxacin 500 mg Premix Inj 500 MG/100 ML PIGGYBACK IV.SIG ONE (15:21)
[2018-10-02] MEDS ORDERED: Lidocaine PF 1% Inj 30 ML Vial ONE (15:25)
--- NOTE | 2018-10-02 15:57 | P.RAD ---
Post Procedure Progress Note - Procedure Information Procedure Date: 10/02/18 Supervising Radiologist: SAI Dupree Assisting Physician: Carlos Kohler Estimated blood loss (mL): 1 Anesthesia: Local, Conscious Sedation - Plan of Activity Patient to Unit: [facility]OP[facility] Patient Condition: Good See PACS Report for procedural detail/treatment.
[2018-10-02] MEDS: Finasteride 5 MG Tablet PO SCH ×2 (17:41→19:36)
--- NOTE | 2018-10-02 19:07 | IR ---
EXAM DATE: 10/02/2018 4:21 PM EST AGE/SEX: 83 years / Male INDICATIONS: History of bladder mass with bilateral hydronephrosis. CLINICAL DATA: This is the patient's initial encounter. Patient reports that signs and symptoms have been present for 4 - 6 days and indicates a pain score of 3/10. MEDICAL/SURGICAL HISTORY: Chronic obstructive pulmonary disease. BPH None. COMPARISON: No prior exams available for comparison. FLUORO TIME (min): 3.7 IMAGE SERIES: 8 SEDATION TIME (min): 40 CONTRAST (cc): 25 Omnipaque (iohexol) 350 MEDICATION(S): 200mcg fentanyl (Sublimaze) IV 1mg lorazepam (Ativan) IV DEVICE(S): 8 [place] nephrostomy catheter . . PROCEDURE : 1. Ultrasound-guided puncture of the kidney. 2. Antegrade percutaneous pyelogram. 3. Percutaneous nephrostomy placement. 4. Conscious sedation with continuous EKG and oximetry monitoring. The risks, benefits and alternatives to the procedure were explained and verbal and written consent w as obtained. The site was prepped in sterile fashion. Full sterile technique was used, including ca p, mask, sterile gloves and gown and a large sterile sheet. Hand hygiene and 2% chlorhexidine and/or betadine/alcohol prep was utilized per protocol for cutaneous antisepsis. Sterile gel and sterile probe cover were utilized for ultrasound guidance. The skin and subcutaneous tissues were infiltrate d with local anesthetic solution. With ultrasound and fluoroscopic guidance the selected kidney was punctured and a percutaneous antegr ba pyelogram was performed demonstrating a dilated collecting system. Serial dilatation was perform ed and a prescribed nephrostomy tube was placed within the renal pelvis and sutured in place. Conscious sedation was performed with the prescribed dosages and duration as above in the presence of an independent trained radiology nurse to assist in the monitoring of the patient. EKG and oximetry remained stable throughout the procedure. The patient tolerated the procedure well and there were n o complications. The patient was sent to post anesthesia recovery in stable condition. CONCLUSION: 1. Uncomplicated nephrostomy tube placement as above. Electronically signed by: Carlos Kohler MD 10/02/2018 7:06 PM EST
[2018-10-03] MEDS: Dextrose 5%/NaCl 0.45% Inj 1,000 ML IV.CONT SCH ×3 (03:38→20:44)
[2018-10-03 07:45] LABS: Baso % (Auto) 0.2 % (0.0-2.0); Eos # (Auto) 0.1 th/mm3 (0.0-0.4); Eos % (Auto) 0.7 % (0.0-4.0); Hemoglobin 7.3 gm/dL (13.0-17.0); Lymph # (Auto) 0.6 th/mm3 (1.0-4.8); Lymph % (Auto) 3.9 % (9.0-44.0); Mean Corpuscular HGB Conc 33.4 % (32.0-36.0); Mean Corpuscular Volume 92.8 fL (80.0-100.0); Mean Platelet Volume 8.7 fL (7.0-11.0); Mono # (Auto) 1.2 th/mm3 (0.0-0.9); Mono % (Auto) 7.5 % (0.0-8.0); Neut # (Auto) 13.5 th/mm3 (1.8-7.7); Neut % (Auto) 87.7 % (16.0-70.0); Platelet Count 243 th/mm3 (150-450); Red Blood Count 2.37 mil/mm3 (4.50-5.90); White Blood Count 15.4 th/mm3 (4.0-11.0)
[2018-10-03 08:05] LABS: Calcium 8.4 mg/dL (8.5-10.1); Carbon Dioxide 27.8 meq/L (21.0-32.0); Potassium 4.3 meq/L (3.5-5.1)
[2018-10-03] MEDS: amLODIPine 5 MG Tablet PO SCH (10:08)
[2018-10-03] MEDS: Senna/Docusate Sodium 8.6/50 MG Tablet PO SCH ×2 (10:11→20:43)
--- NOTE | 2018-10-03 10:48 | P.PNURO ---
Subjective Patient symptoms today: Pt seen and examined. Feeling better today. s/p b/l PNCT placement. Creatinine down to 2.3. Objective Vital Signs: Vital Signs 10/02/18 12:00 10/02/18 12:49 10/02/18 17:02 Temperature 97.8 F 97.1 F L Pulse Rate 71 79 99 H Respiratory Rate 17 20 20 Blood Pressure 161/75 H 162/70 H Pulse Oximetry 94 L 10/02/18 17:15 10/02/18 17:44 10/02/18 20:00 Temperature 97.6 F 97.1 F L 98.5 F Pulse Rate 92 H 89 80 Respiratory Rate 20 16 Blood Pressure 155/68 H 166/72 H 172/79 H Pulse Oximetry 94 L 95 10/03/18 00:00 10/03/18 03:52 10/03/18 04:00 Temperature 98.7 F 98.7 F Pulse Rate 82 85 82 Respiratory Rate 16 20 16 Blood Pressure 146/67 H 160/70 H Pulse Oximetry 94 L 94 L 10/03/18 08:00 Temperature 99.0 F Pulse Rate 82 Respiratory Rate 18 Blood Pressure 139/64 Pulse Oximetry 96 Intake & Output 10/02/18 10/03/18 10/03/18 18:59 06:59 18:59 Intake Total 2500 / 2500 1000 / 1000 1000 / 1000 Output Total 4000 / 4000 2500 / 2500 Balance -1500 / -1500 1000 / 1000 -1500 / -1500 Weight 84.1 kg Intake: IV 1100 / 1100 1000 / 1000 1000 / 1000 D5W/1/2 NS Inj 1,000 ML @ 100 1000 / 1000 1000 / 1000 1000 / 1000 mls/hr IV.CONT .Q10H [facility] Rx#: [id number] Levaquin 500 mg Premix Inj 500 100 / 100 mg In 100 ml @ 0 mls/hr IV.SIG .STK-MED ONE Rx#:[id number] Oral 1400 / 1400 Output: Urine 4000 / 4000 Urine Amount (Catheter) 200 / 200 Indwelling Urethral Catheter 200 / 200 Wound Drainage 2300 / 2300 Left Back 950 / 950 Right Back 1350 / 1350 Other: Date of Last Bowel Movement 10/02/18 10/02/18 # Bowel Movements 2 Result Diagrams: 10/03/18 05:53 10/03/18 05:53 Imaging: Impressions Abdomen/Bladder Ultrasound 10/02/18 00:00 CONCLUSION: 1. Distended bladder despite Alfaro. 2. Bilateral hydronephrosis Nephrostomy 10/02/18 00:00 CONCLUSION: 1. Uncomplicated nephrostomy tube placement as above. Nephrostomy 10/02/18 00:00 CONCLUSION: 1. Uncomplicated nephrostomy tube placement as above. Medications and IVs: Active Medications Generic Name Dose Route Start Last Admin Trade Name Freq PRN Reason Stop Dose Admin Acetaminophen 650 mg 09/29/18 21:11 Tylenol PO Q4H PRN Temp > 100.4 Al Hydroxide/Mg Hydroxide 30 ml 09/29/18 21:11 Milk Of Magnesia Liq PO Q12H PRN Mild Constipation Albuterol 1 ampul 09/30/18 15:02 10/03/18 03:52 Duoneb Neb (Prn) NEB 1 ampul Q6HR NEB PRN Administration SHORTNESS OF BREATH/WHEEZING Amlodipine Besylate 5 mg 10/03/18 09:30 10/03/18 10:08 Norvasc PO 5 mg DAILY HO Administration Belladonna Alkaloids/Opium 60 mg 09/30/18 10:17 10/01/18 10:36 B & O Supp RECTAL 60 mg Q6HR PRN Administration BLADDER SPASM Bisacodyl 10 mg 09/29/18 21:11 Dulcolax Supp RECTAL DAILY PRN SEVERE CONSITIPATION Finasteride 5 mg 09/30/18 19:00 10/02/18 19:36 Proscar PO Not Given DAILY@1900 HO Fluticasone/Vilanterol 1 puff 09/30/18 09:00 10/02/18 08:20 Breo Ellipta 200/25 Mcg Inh INH 1 puff DAILY HO Administration Dextrose/Sodium Chloride 1,000 mls @ 100 mls/hr 09/30/18 11:12 10/03/18 10:09 D5w/1/2 Ns Inj IV.CONT 100 mls/hr .Q10H HO Administration Lactulose 30 ml 09/29/18 21:11 Lactulose Liq PO DAILY PRN SEVERE CONSITIPATION Ondansetron HCl 4 mg 09/29/18 21:11 Zofran Inj IV.PUSH Q6H PRN NAUSEA OR VOMITING Senna/Docusate Sodium 1 tab 09/30/18 09:00 10/03/18 10:11 Kristin-Colace PO Not Given BID [facility] Sennosides 17.2 mg 09/29/18 21:11 Senokot PO Q12H PRN Moderate Constipation Tamsulosin HCl 0.4 mg 09/30/18 19:00 10/02/18 19:35 Flomax PO Not Given DAILY@1900 [facility] Objective Remarks: Abd:soft,nt,nd Alfaro: clear urine PCNTs: Right: blood tinged; Left: clear Ext: neg C/C/E Assessment and Plan - Plan 83y.o M with hx as per HPI - No acute intervention needed - Continue care as per primary team - Continue CBI and wean off once urine clears up and alfaro can be removed - Start Flomax and Proscar daily - Antbx due to leukocytosis - Renal US in 48hrs after alfaro placement to f/u on hydro - Needs to see Dr Eric SIMPSON attending as outpt for cystoscopy 10/03 83 y.o male with gross hematuria and AFR Will need cysto in future ARF resolving s/p b/l PCNT's
[2018-10-03 13:56] LABS: Hematocrit 22.7 % (39.0-51.0); Hemoglobin 7.2 gm/dL (13.0-17.0)
--- NOTE | 2018-10-03 17:41 | P.PNIM ---
Subjective Interval history: 83yo m admitted with gross hematuria found to have a bladder mass, and acute renal failure with hydronephrosis s/p bilateral percutaneous nephrostomy placement yesterday. pt seen and examined doing better, family at bedside and case discussed at length, no sob, no cp, no fever, cbi was dcd yesterday and hematuria has continued, patient denies abd pain Physical Exam Vital signs: Last Vital Signs Temp 98.3 F 10/03/18 16:00 Pulse 85 10/03/18 16:00 Resp 18 10/03/18 16:00 BP 131/60 10/03/18 16:00 Pulse Ox 96 10/03/18 16:00 Intake & Output 10/01/18 10/02/18 10/03/18 10/04/18 06:59 06:59 06:59 06:59 Intake Total 1880 / 1880 4000 / 4000 3500 / 3500 1000 / 1000 Output Total 2700 / 2700 4000 / 4000 3800 / 3800 Balance 1880 / 1880 1300 / 1300 -500 / -500 -2800 / -2800 Weight 79.1 kg 83.2 kg 84.1 kg [id number] m in nad, aaox3 but mild forgetful heart s1s2 reg lungs improved air movment no wheeze abd soft nondt pos bs ext no edema , no calf tenderness Urinary Catheter Management Indwelling Urethral Catheter: Cath placed during this visit: yes Urethral indwelling: Yes Reason for continuing: Gross Hematuria Insertion date: 09/29/18 Insertion time: 17:20 Results Labs CBC & Chem 7: 10/03/18 13:40 10/03/18 05:53 Imaging Imaging: Impressions Nephrostomy 10/02/18 00:00 CONCLUSION: 1. Uncomplicated nephrostomy tube placement as above. Nephrostomy 10/02/18 00:00 CONCLUSION: 1. Uncomplicated nephrostomy tube placement as above. Assessment and Plan Plan - GROSS HEMATURIA due to bladder mass? - cbi, urology eval appreciated, will need to follow up as outpt, hold any anticoagulants - ACUTE RENAL FAILURE DUE TO OBSTRUCTIVE UROPATHY - improved s/p b/l perc nephr tubes, cont ivf and monitor cr, - BLADDER MASS causing HYDRONEPRHOSIS B/L L>R, concern for malignancy - urology eval, hx BPH, flomax and proscar started, will need cysto at some point - ANEMIA of acute blood loss due to hematuria, significant drop in hh, currently hemodynamically stable but now more bleeding, will transfuse if hgb <7 , monitor hh - HTN - cont bp control - COPD w chronic hypoxic respiratory failure and home o2, stable, breo nebs prn , seems to have mild exacerbation of copd better s/p 1 dose prednisone, cont nebs prn DISPO - return to [facility] w home oxygen when ok w urology, if hematuria resolved and renal function and hgb stable DVT prophylaxis - scd, anticoagulants ci due to hematuria Progress Note: Quality VTE Deep Vein Thrombosis/Pulmonary Embolism Present on Admission: No
[2018-10-03] MEDS: Finasteride 5 MG Tablet PO SCH (18:02)
[2018-10-04] MEDS: Dextrose 5%/NaCl 0.45% Inj 1,000 ML IV.CONT SCH ×3 (06:14→20:30)
[2018-10-04 07:10] LABS: Hematocrit 22.4 % (39.0-51.0); Hemoglobin 7.5 gm/dL (13.0-17.0); Mean Corpuscular HGB Conc 33.6 % (32.0-36.0); Mean Corpuscular Hemoglobin 31.2 pg (27.0-34.0); Mean Corpuscular Volume 92.9 fL (80.0-100.0); Mean Platelet Volume 8.5 fL (7.0-11.0); Platelet Count 234 th/mm3 (150-450); Red Blood Count 2.41 mil/mm3 (4.50-5.90); Red Cell Distribution Width 15.4 % (11.6-17.2); White Blood Count 15.3 th/mm3 (4.0-11.0)
[2018-10-04 07:31] LABS: Albumin 2.1 g/dL (3.4-5.0); Calcium 8.4 mg/dL (8.5-10.1); Carbon Dioxide 28.9 meq/L (21.0-32.0); Phosphorus 2.8 mg/dL (2.5-4.9); Potassium 4.1 meq/L (3.5-5.1)
[2018-10-04] MEDS: amLODIPine 5 MG Tablet PO SCH (08:59)
[2018-10-04] MEDS: Senna/Docusate Sodium 8.6/50 MG Tablet PO SCH ×2 (08:59→20:31)
--- NOTE | 2018-10-04 09:05 | P.PNURO ---
Subjective Patient symptoms today: Pt seen and examined. Feeling better. Urine is clear from alfaro and bilateral nephrostomy tubes. Creatinine down to 1.7. Objective Vital Signs: Vital Signs 10/03/18 12:00 10/03/18 16:00 10/03/18 20:00 Temperature 98.6 F 98.3 F 98.6 F Pulse Rate 79 85 80 Respiratory Rate 18 18 17 Blood Pressure 130/62 131/60 152/64 H Pulse Oximetry 96 96 93 L 10/04/18 00:00 Temperature 98.7 F Pulse Rate 84 Respiratory Rate 21 Blood Pressure 133/77 Pulse Oximetry 94 L Intake & Output 10/03/18 10/04/18 10/04/18 18:59 06:59 18:59 Intake Total 1720 / 1720 480 / 480 Output Total 4150 / 4150 800 / 800 2850 / 2850 Balance -2430 / -2430 -320 / -320 -2850 / -2850 Weight 84 kg Intake: IV 1000 / 1000 D5W/1/2 NS Inj 1,000 ML @ 100 1000 / 1000 mls/hr IV.CONT .Q10H [facility] Rx#: [id number] Oral 720 / 720 480 / 480 Output: Urine Amount (Catheter) 825 / 825 800 / 800 1700 / 1700 Indwelling Urethral Catheter 825 / 825 800 / 800 1700 / 1700 Wound Drainage 3325 / 3325 1150 / 1150 Left Back 1625 / 1625 800 / 800 Right Back 1700 / 1700 350 / 350 Other: Bladder Irrigation Fluid - 1,000 Amount Instilled Indwelling Urethral Catheter 380 400 Bladder Irrigation Fluid - 1,600 Amount Drained Indwelling Urethral Catheter 380 400 Date of Last Bowel Movement 10/02/18 # Bowel Movements 1 Result Diagrams: 10/04/18 06:25 10/04/18 06:25 Medications and IVs: Active Medications Generic Name Dose Route Start Last Admin Trade Name Freq PRN Reason Stop Dose Admin Acetaminophen 650 mg 09/29/18 21:11 Tylenol PO Q4H PRN Temp > 100.4 Al Hydroxide/Mg Hydroxide 30 ml 09/29/18 21:11 Milk Of Magnesia Liq PO Q12H PRN Mild Constipation Albuterol 1 ampul 09/30/18 15:02 10/03/18 03:52 Duoneb Neb (Prn) NEB 1 ampul Q6HR NEB PRN Administration SHORTNESS OF BREATH/WHEEZING Amlodipine Besylate 5 mg 10/03/18 09:30 10/03/18 10:08 Norvasc PO 5 mg DAILY HO Administration Belladonna Alkaloids/Opium 60 mg 09/30/18 10:17 10/01/18 10:36 B & O Supp RECTAL 60 mg Q6HR PRN Administration BLADDER SPASM Bisacodyl 10 mg 09/29/18 21:11 Dulcolax Supp RECTAL DAILY PRN SEVERE CONSITIPATION Finasteride 5 mg 09/30/18 19:00 10/03/18 18:02 Proscar PO 5 mg DAILY@1900 HO Administration Fluticasone/Vilanterol 1 puff 09/30/18 09:00 10/03/18 10:50 Breo Ellipta 200/25 Mcg Inh INH 1 puff DAILY HO Administration Dextrose/Sodium Chloride 1,000 mls @ 100 mls/hr 09/30/18 11:12 10/04/18 06:14 D5w/1/2 Ns Inj IV.CONT 100 mls/hr .Q10H HO Administration Lactulose 30 ml 09/29/18 21:11 Lactulose Liq PO DAILY PRN SEVERE CONSITIPATION Ondansetron HCl 4 mg 09/29/18 21:11 Zofran Inj IV.PUSH Q6H PRN NAUSEA OR VOMITING Senna/Docusate Sodium 1 tab 09/30/18 09:00 10/03/18 20:43 Kristin-Colace PO 1 tab BID HO Administration Sennosides 17.2 mg 09/29/18 21:11 Senokot PO Q12H PRN Moderate Constipation Tamsulosin HCl 0.4 mg 09/30/18 19:00 10/03/18 18:02 Flomax PO 0.4 mg DAILY@1900 HO Administration Objective Remarks: Abd:soft,nt,nd Alfaro: clear urine PCNTs: Right: blood tinged; Left: clear Ext: neg C/C/E 10/04 Abd:soft,nt,nd Alfaro: clear urine PCNTs: Right: clear; Left: clear Ext: neg C/C/E Assessment and Plan - Plan 83y.o M with hx as per HPI - No acute intervention needed - Continue care as per primary team - Continue CBI and wean off once urine clears up and alfaro can be removed - Start Flomax and Proscar daily - Antbx due to leukocytosis - Renal US in 48hrs after alfaro placement to f/u on hydro - Needs to see Dr Eric SIMPSON attending as outpt for cystoscopy 10/03 83 y.o male with gross hematuria and AFR Will need cysto in future ARF resolving s/p b/l PCNT's 10/04 83 y.o male with gross hematuria and AFR which is resolving. Will need cysto in future once medically optimized.
[2018-10-04] MEDS ORDERED: Sodium Chlor 0.9% Inj 250 ML IV.SIG SCH (11:00)
[2018-10-04] MEDS ORDERED: [UNRECOGNIZED DRUG - REMARK] IV ONE (11:42)
--- NOTE | 2018-10-04 17:09 | P.PNIM ---
Subjective Interval history: 83yo m admitted with gross hematuria found to have possible bladder mass per ct abd pelvis, developed acute renal failure from bilateral hydronephrosis s/p bilateral percutaneous nephrostomy placement. pt seen and examined, he is very pleasant and states he is feeling much better, he asked that I speak to his family re the plan, case d/w Dr Aly. I called son (POA) and daughter in law, I explained at length again his condition and the plan, they were very irate about uncertainty with timing of procedures and uncertainty of diagnosis and prognosis, though I discussed at length his condition, need for medical optimization before cystoscopy, and clinical improvement to date, they were yelling on the phone at me and made very rude and derrogatory comments about the care at this facility and stated that the patient states he's feeling much better only because he wants to go home, not because we have done anything to improve his condition. They are adamant to speak with urology prior to any procedures. Physical Exam Vital signs: Last Vital Signs Temp 98.3 F 10/04/18 13:30 Pulse 82 10/04/18 13:30 Resp 18 10/04/18 13:07 BP 116/59 L 10/04/18 13:30 Pulse Ox 96 10/04/18 13:30 Intake & Output 10/02/18 10/03/18 10/04/18 10/05/18 06:59 06:59 06:59 06:59 Intake Total 4000 / 4000 3500 / 3500 2200 / 2200 0 / 0 Output Total 2700 / 2700 4000 / 4000 4950 / 4950 3275 / 3275 Balance 1300 / 1300 -500 / -500 -2750 / -2750 -3275 / -3275 Weight 83.2 kg 84.1 kg 84 kg pleasant 83yo w m aaox3 mild forgetful no distress heart s1s2 reg lungs occas wheeze b/l no rhonchi abd soft nondt pos bs, b/l per neph tubes in place ext no edema , no calf tenderness Urinary Catheter Management Indwelling Urethral Catheter: Cath placed during this visit: yes Urethral indwelling: Yes Reason for continuing: Gross Hematuria Insertion date: 09/29/18 Insertion time: 17:20 Results Labs CBC & Chem 7: 10/04/18 06:25 10/04/18 06:25 Labs: URINE Cx 09/29/18 final no growth Assessment and Plan Plan - GROSS HEMATURIA due to suspected bladder mass? - cont cbi, improved - ACUTE RENAL FAILURE DUE TO OBSTRUCTIVE UROPATHY - improved s/p b/l perc nephr tubes, cont ivf cr improving. - BLADDER MASS vs hematoma causing HYDRONEPRHOSIS B/L L>R, concern for malignancy - urology eval, hx BPH, flomax and proscar started, dw urology, cystocopy this week when medically optimized preop. - ANEMIA of acute blood loss due to hematuria, significant drop in hh, currently hemodynamically stable but w active bleeding, will transfuse 1 u prbc in prep for procedure. - HTN - cont bp control - COPD w chronic hypoxic respiratory failure , home o2 dependent, home breo nebs prn, had mild exacerbation of copd is better s/p 1 dose prednisone, cont nebs prn, home breo, consult pulm for perioperative recommendations DISPO - return to home w family w home oxygen when ok w urology, if hematuria resolved and renal function and hgb stable DVT prophylaxis - scd, anticoagulants ci due to hematuria Progress Note: Quality VTE Deep Vein Thrombosis/Pulmonary Embolism Present on Admission: No
[2018-10-04] MEDS: Finasteride 5 MG Tablet PO SCH (18:32)
[2018-10-04 19:06] LABS: Baso % (Auto) 0.3 % (0.0-2.0); Eos # (Auto) 0.2 th/mm3 (0.0-0.4); Eos % (Auto) 1.4 % (0.0-4.0); Hematocrit 26.5 % (39.0-51.0); Hemoglobin 8.6 gm/dL (13.0-17.0); Lymph # (Auto) 0.8 th/mm3 (1.0-4.8); Lymph % (Auto) 4.6 % (9.0-44.0); Mean Corpuscular HGB Conc 32.5 % (32.0-36.0); Mean Corpuscular Hemoglobin 30.3 pg (27.0-34.0); Mean Corpuscular Volume 93.2 fL (80.0-100.0); Mean Platelet Volume 8.9 fL (7.0-11.0); Mono # (Auto) 1.2 th/mm3 (0.0-0.9); Mono % (Auto) 6.7 % (0.0-8.0); Neut # (Auto) 15.1 th/mm3 (1.8-7.7); Platelet Count 253 th/mm3 (150-450); Red Blood Count 2.84 mil/mm3 (4.50-5.90); Red Cell Distribution Width 14.9 % (11.6-17.2); White Blood Count 17.3 th/mm3 (4.0-11.0)
--- NOTE | 2018-10-04 20:59 | P.PN ---
Subjective Interval history: not seen Physical Exam Vital signs: Vital Signs 10/04/18 00:00 10/04/18 08:00 10/04/18 12:00 Temperature 98.7 F 98.7 F 98.3 F Pulse Rate 84 77 76 Respiratory Rate 21 18 18 Blood Pressure 133/77 127/61 130/58 L Pulse Oximetry 94 L 93 L 97 10/04/18 13:07 10/04/18 13:30 10/04/18 16:00 Temperature 98.3 F 98.3 F 98.4 F Pulse Rate 76 82 84 Respiratory Rate 18 19 Blood Pressure 130/58 L 116/59 L 131/65 Pulse Oximetry 97 96 94 L 10/04/18 17:44 10/04/18 20:00 Temperature 98.4 F 99.0 F Pulse Rate 76 77 Respiratory Rate 18 20 Blood Pressure 127/61 142/67 H Pulse Oximetry 93 L 96 Intake & Output 10/04/18 10/04/18 10/05/18 06:59 18:59 06:59 Intake Total 480 / 480 2350 / 2350 Output Total 800 / 800 4825 / 4825 1300 / 1300 Balance -320 / -320 -2475 / -2475 -1300 / -1300 Weight 84 kg Intake: IV 1000 / 1000 D5W/1/2 NS Inj 1,000 ML @ 100 1000 / 1000 mls/hr IV.CONT .Q10H [facility] Rx#: [id number] Oral 480 / 480 950 / 950 Intake (Blood Product) Amt 400 / 400 Rbc As-3 Leukoreduced Unit 400 / 400 [id number] Output: Urine 1000 / 1000 Urine Amount (Catheter) 800 / 800 1700 / 1700 1000 / 1000 Indwelling Urethral Catheter 800 / 800 1700 / 1700 1000 / 1000 Wound Drainage 2125 / 2125 300 / 300 Left Back 1750 / 1750 300 / 300 Right Back 375 / 375 Other: Bladder Irrigation Fluid - Amount Instilled Indwelling Urethral Catheter 380 400 Bladder Irrigation Fluid - Amount Drained Indwelling Urethral Catheter 380 400 # Bowel Movements 0 Narrative: pleasant 83yo w m aaox3 mild forgetful no distress heart s1s2 reg lungs occas wheeze b/l no rhonchi abd soft nondt pos bs, b/l per neph tubes in place ext no edema , no calf tenderness - Urinary Catheter Management Indwelling Urethral Catheter Cath placed during this visit: yes Urethral indwelling: Yes Reason for continuing: Gross Hematuria Insertion date: 09/29/18 Insertion time: 17:20 Results - Labs CBC & Chem 7: 10/04/18 18:14 10/04/18 06:25 Laboratory Results - last 24 hr 10/04/18 10/04/18 10/04/18 06:25 06:25 10:46 WBC 15.3 H RBC 2.41 L Hgb 7.5 L Hct 22.4 L MCV 92.9 MCH 31.2 MCHC 33.6 RDW 15.4 Plt Count 234 MPV 8.5 Neut % (Auto) Lymph % (Auto) Gregg % (Auto) Eos % (Auto) Baso % (Auto) Neut # (Auto) Lymph # (Auto) Gregg # (Auto) Eos # (Auto) Baso # (Auto) WBC Differential Differential Comment Sodium 141 Potassium 4.1 Chloride 104 Carbon Dioxide 28.9 Anion Gap 8 BUN 41 H Creatinine 1.77 H Estimated GFR 37 L Random Glucose 100 Calcium 8.4 L Phosphorus 2.8 Albumin 2.1 L MTS Gel Crossmatch See Detail 10/04/18 18:14 WBC 17.3 H RBC 2.84 L Hgb 8.6 L Hct 26.5 L MCV 93.2 MCH 30.3 MCHC 32.5 RDW 14.9 Plt Count 253 MPV 8.9 Neut % (Auto) 87.0 H Lymph % (Auto) 4.6 L Gregg % (Auto) 6.7 Eos % (Auto) 1.4 Baso % (Auto) 0.3 Neut # (Auto) 15.1 H Lymph # (Auto) 0.8 L Gregg # (Auto) 1.2 H Eos # (Auto) 0.2 Baso # (Auto) 0.0 WBC Differential . Differential Comment Auto diff final Sodium Potassium Chloride Carbon Dioxide Anion Gap BUN Creatinine Estimated GFR Random Glucose Calcium Phosphorus Albumin MTS Gel Crossmatch - Imaging ITS Impressions Abdomen/Pelvis CT 09/29/18 16:54 CONCLUSION: 1. Intrinsic urinary bladder mass and eccentric wall thickening along the left side suspicious for neoplasm. 2. Obstructive uropathy with mild to moderate hydronephrosis on the right and moderate to severe hydronephrosis on the left. Ureteral obstruction at the ureterovesical junction is a suspected on the left. Right ureteral obstruction may be due to bladder outlet obstruction. 3. Enlarged prostate which cannot be distinguished from the bladder mass. 4. Campos catheter in place with decompression of the bladder. 5. No evidence of local regional lymphadenopathy, pelvic sidewall involvement or destructive bone lesions. 6. 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 Abdomen/Bladder Ultrasound 10/02/18 00:00 CONCLUSION: 1. Distended bladder despite Campos. 2. Bilateral hydronephrosis Nephrostomy 10/02/18 00:00 CONCLUSION: 1. Uncomplicated nephrostomy tube placement as above. - Procedures B/l nephrostomy tube placement Assessment and Plan - Plan - GROSS HEMATURIA due to suspected bladder mass? - cont cbi, improved - ACUTE RENAL FAILURE DUE TO OBSTRUCTIVE UROPATHY - improved s/p b/l perc nephr tubes, cont ivf cr improving. - BLADDER MASS vs hematoma causing HYDRONEPHROSIS B/L L>R, concern for malignancy - urology eval, hx BPH, flomax and proscar started, dw urology, cystocopy this week when medically optimized preop. - ANEMIA of acute blood loss due to hematuria, significant drop in hh, currently hemodynamically stable but w active bleeding, will transfuse 1 u prbc in prep for procedure. - HTN - cont bp control - COPD w chronic hypoxic respiratory failure , home o2 dependent, home breo nebs prn, had mild exacerbation of copd is better s/p 1 dose prednisone, cont nebs prn, home breo, consult pulm for perioperative recommendations DISPO - return to home w family w home oxygen when ok w urology, if hematuria resolved and renal function and hgb stable DVT prophylaxis - scd, anticoagulants ci due to hematuria
[2018-10-05] MEDS: Dextrose 5%/NaCl 0.45% Inj 1,000 ML IV.CONT SCH ×2 (02:54→10:29)
--- NOTE | 2018-10-05 06:28 | XR ---
EXAM DATE: 10/05/2018 6:17 AM EST AGE/SEX: 83 years / Male INDICATIONS: Short of breath, evaluate COPD CLINICAL DATA: This is the patient's subsequent encounter. Patient reports that signs and symptoms h ave been present for 4 - 6 days and indicates a pain score of Nonresponsive. MEDICAL/SURGICAL HISTORY: Chronic obstructive pulmonary disease. hydronephrosis, bladder mass . bilateral nephrostomy tubes COMPARISON: No prior exams available for comparison. FINDINGS: A single AP view of the chest demonstrates the lungs to be symmetrically aerated without evidence of mass, infiltrate or effusion. Mild basilar density, probably atelectasis. The cardiomediastinal conto urs are unremarkable. Osseous structures are intact. CONCLUSION: Mild basilar density, probably atelectasis. No effusion or pneumothorax. Electronically signed by: Jeancarlos Cotter MD 10/05/2018 6:27 AM EST
[2018-10-05 07:46] LABS: Baso % (Auto) 0.3 % (0.0-2.0); Eos # (Auto) 0.2 th/mm3 (0.0-0.4); Eos % (Auto) 1.3 % (0.0-4.0); Hematocrit 26.2 % (39.0-51.0); Hemoglobin 8.6 gm/dL (13.0-17.0); Lymph # (Auto) 0.9 th/mm3 (1.0-4.8); Mean Corpuscular Hemoglobin 30.3 pg (27.0-34.0); Mean Corpuscular Volume 92.1 fL (80.0-100.0); Mean Platelet Volume 8.8 fL (7.0-11.0); Mono # (Auto) 1.1 th/mm3 (0.0-0.9); Mono % (Auto) 7.3 % (0.0-8.0); Neut # (Auto) 13.2 th/mm3 (1.8-7.7); Neut % (Auto) 85.1 % (16.0-70.0); Platelet Count 231 th/mm3 (150-450); Red Blood Count 2.85 mil/mm3 (4.50-5.90); Red Cell Distribution Width 14.9 % (11.6-17.2); White Blood Count 15.5 th/mm3 (4.0-11.0)
[2018-10-05 08:17] LABS: Carbon Dioxide 32.7 meq/L (21.0-32.0); Magnesium 1.5 mg/dL (1.5-2.5); Potassium 3.4 meq/L (3.5-5.1)
--- NOTE | 2018-10-05 08:49 | P.PNURO ---
Subjective Patient symptoms today: Pt seen and examined. Feels well. No complaints. Objective Vital Signs: Vital Signs 10/04/18 12:00 10/04/18 13:07 10/04/18 13:30 Temperature 98.3 F 98.3 F 98.3 F Pulse Rate 76 76 82 Respiratory Rate 18 18 Blood Pressure 130/58 L 130/58 L 116/59 L Pulse Oximetry 97 97 96 10/04/18 16:00 10/04/18 17:44 10/04/18 20:00 Temperature 98.4 F 98.4 F 99.0 F Pulse Rate 84 76 77 Respiratory Rate 19 18 20 Blood Pressure 131/65 127/61 142/67 H Pulse Oximetry 94 L 93 L 96 10/05/18 00:00 Temperature 98.9 F Pulse Rate 82 Respiratory Rate 20 Blood Pressure 139/64 Pulse Oximetry 96 Intake & Output 10/04/18 10/05/18 10/05/18 18:59 06:59 18:59 Intake Total 2350 / 2350 Output Total 4825 / 4825 3500 / 3500 Balance -2475 / -2475 -3500 / -3500 Weight 84 kg Intake: IV 1000 / 1000 D5W/1/2 NS Inj 1,000 ML @ 100 1000 / 1000 mls/hr IV.CONT .Q10H [facility] Rx#: [id number] Oral 950 / 950 Intake (Blood Product) Amt 400 / 400 Rbc As-3 Leukoreduced Unit 400 / 400 [id number] Output: Urine 1000 / 1000 Urine Amount (Catheter) 1700 / 1700 2200 / 2200 Indwelling Urethral Catheter 1700 / 1700 2200 / 2200 Wound Drainage 2125 / 2125 1300 / 1300 Left Back 1750 / 1750 1100 / 1100 Right Back 375 / 375 200 / 200 Other: Bladder Irrigation Fluid - Amount Instilled Indwelling Urethral Catheter 400 1,200 Bladder Irrigation Fluid - Amount Drained Indwelling Urethral Catheter 400 1,200 # Bowel Movements 0 Result Diagrams: 10/05/18 06:51 10/05/18 06:51 Imaging: Impressions Chest X-Ray 10/05/18 06:00 CONCLUSION: Mild basilar density, probably atelectasis. No effusion or pneumothorax. Medications and IVs: Active Medications Generic Name Dose Route Start Last Admin Trade Name Freq PRN Reason Stop Dose Admin Acetaminophen 650 mg 09/29/18 21:11 Tylenol PO Q4H PRN Temp > 100.4 Albuterol 1 ampul 09/30/18 15:02 10/03/18 03:52 Duoneb Neb (Prn) NEB 1 ampul Q6HR NEB PRN Administration SHORTNESS OF BREATH/WHEEZING Amlodipine Besylate 5 mg 10/03/18 09:30 10/04/18 08:59 Norvasc PO 5 mg DAILY HO Administration Belladonna Alkaloids/Opium 60 mg 09/30/18 10:17 10/01/18 10:36 B & O Supp RECTAL 60 mg Q6HR PRN Administration BLADDER SPASM Bisacodyl 10 mg 09/29/18 21:11 Dulcolax Supp RECTAL DAILY PRN SEVERE CONSITIPATION Finasteride 5 mg 09/30/18 19:00 10/04/18 18:32 Proscar PO 5 mg DAILY@1900 HO Administration Fluticasone/Vilanterol 1 puff 09/30/18 09:00 10/04/18 08:58 Breo Ellipta 200/25 Mcg Inh INH 1 puff DAILY HO Administration Dextrose/Sodium Chloride 1,000 mls @ 100 mls/hr 09/30/18 11:12 10/05/18 06:52 D5w/1/2 Ns Inj IV.CONT 100 mls/hr .Q10H HO Infusion Lactulose 30 ml 09/29/18 21:11 Lactulose Liq PO DAILY PRN SEVERE CONSITIPATION Ondansetron HCl 4 mg 09/29/18 21:11 Zofran Inj IV.PUSH Q6H PRN NAUSEA OR VOMITING Senna/Docusate Sodium 1 tab 09/30/18 09:00 10/04/18 20:31 Kristin-Colace PO 1 tab BID HO Administration Sennosides 17.2 mg 09/29/18 21:11 Senokot PO Q12H PRN Moderate Constipation Tamsulosin HCl 0.4 mg 09/30/18 19:00 10/04/18 18:32 Flomax PO 0.4 mg DAILY@1900 HO Administration Objective Remarks: Abd:soft,nt,nd Alfaro: clear urine PCNTs: Right: blood tinged; Left: clear Ext: neg C/C/E 10/04 Abd:soft,nt,nd Alfaro: clear urine PCNTs: Right: clear; Left: clear Ext: neg C/C/E 10/05 Abd:soft,nt,nd PCNT's and Alfaro: urine clear. Assessment and Plan - Plan 83y.o M with hx as per HPI - No acute intervention needed - Continue care as per primary team - Continue CBI and wean off once urine clears up and alfaro can be removed - Start Flomax and Proscar daily - Antbx due to leukocytosis - Renal US in 48hrs after alfaro placement to f/u on hydro - Needs to see Dr Eric SIMPSON attending as outpt for cystoscopy 10/03 83 y.o male with gross hematuria and AFR Will need cysto in future ARF resolving s/p b/l PCNT's 10/04 83 y.o male with gross hematuria and AFR which is resolving. Will need cysto in future once medically optimized. 10/05 83 y.o male with gross hematuria and AFR which is resolving. Will need cysto in future once medically optimized and cleared by pulmonary.
[2018-10-05 09:28] LABS: Eosinophils 1 % (0-4); Lymphocytes 4 % (9-44); Monocytes 4 % (0-8)
[2018-10-05 09:29] LABS: Platelet Estimate Normal (Normal); Platelet Morphology Normal (Normal)
[2018-10-05] MEDS: amLODIPine 5 MG Tablet PO SCH (10:25)
[2018-10-05] MEDS: Senna/Docusate Sodium 8.6/50 MG Tablet PO SCH ×2 (10:25→21:11)
--- NOTE | 2018-10-05 15:35 | P.PN ---
Subjective Interval history: Follow-up hematuria and COPD. Resolved gross hematuria. Improved shortness of breath currently on nasal cannula. Discussed with family, requesting to talk to . Discussed with nursing to follow-up on family's request Physical Exam Vital signs: Vital Signs 10/04/18 16:00 10/04/18 17:44 10/04/18 20:00 Temperature 98.4 F 98.4 F 99.0 F Pulse Rate 84 76 77 Respiratory Rate 19 18 20 Blood Pressure 131/65 127/61 142/67 H Pulse Oximetry 94 L 93 L 96 10/05/18 00:00 10/05/18 08:00 10/05/18 12:00 Temperature 98.9 F 98.0 F 98.1 F Pulse Rate 82 69 81 Respiratory Rate 20 16 17 Blood Pressure 139/64 130/60 139/70 Pulse Oximetry 96 93 L 93 L Intake & Output 10/04/18 10/05/18 10/05/18 18:59 06:59 18:59 Intake Total 2350 / 2350 Output Total 4825 / 4825 3500 / 3500 Balance -2475 / -2475 -3500 / -3500 Weight 84 kg Intake: IV 1000 / 1000 D5W/1/2 NS Inj 1,000 ML @ 100 1000 / 1000 mls/hr IV.CONT .Q10H [facility] Rx#: [id number] Oral 950 / 950 Intake (Blood Product) Amt 400 / 400 Rbc As-3 Leukoreduced Unit 400 / 400 [id number] Output: Urine 1000 / 1000 Urine Amount (Catheter) 1700 / 1700 2200 / 2200 Indwelling Urethral Catheter 1700 / 1700 2200 / 2200 Wound Drainage 2125 / 2125 1300 / 1300 Left Back 1750 / 1750 1100 / 1100 Right Back 375 / 375 200 / 200 Other: Bladder Irrigation Fluid - Amount Instilled Indwelling Urethral Catheter 400 1,200 Bladder Irrigation Fluid - Amount Drained Indwelling Urethral Catheter 400 1,200 # Bowel Movements 0 Narrative: pleasant 83yo w m aaox3 mild forgetfulness no distress heart s1s2 reg lungs wheeze b/l no rhonchi abd soft nondt pos bs, b/l per neph tubes in place ext no edema , no calf tenderness Skin is warm no lesions - Urinary Catheter Management Indwelling Urethral Catheter Cath placed during this visit: yes Urethral indwelling: Yes Reason for continuing: Gross Hematuria Insertion date: 09/29/18 Insertion time: 17:20 Results - Labs CBC & Chem 7: 10/05/18 06:51 10/05/18 06:51 Laboratory Results - last 24 hr 10/04/18 10/04/18 10/05/18 10:46 18:14 06:51 WBC 17.3 H 15.5 H RBC 2.84 L 2.85 L Hgb 8.6 L 8.6 L Hct 26.5 L 26.2 L MCV 93.2 92.1 MCH 30.3 30.3 MCHC 32.5 33.0 RDW 14.9 14.9 Plt Count 253 231 MPV 8.9 8.8 Prelim Diff (Auto) Slide review pending Neut % (Auto) 87.0 H 85.1 H Lymph % (Auto) 4.6 L 6.0 L Meigs % (Auto) 6.7 7.3 Eos % (Auto) 1.4 1.3 Baso % (Auto) 0.3 0.3 Neut # (Auto) 15.1 H 13.2 H Lymph # (Auto) 0.8 L 0.9 L Meigs # (Auto) 1.2 H 1.1 H Eos # (Auto) 0.2 0.2 Baso # (Auto) 0.0 0.0 WBC Differential . Manual diff final Seg Neuts % (Manual) 83 H Band Neuts % (Manual) 8 H Lymphocytes % (Manual) 4 L Monocytes % (Manual) 4 Eosinophils % (Manual) 1 Abs Neuts (Manual) 14.1 H Differential Comment Auto diff final . Platelet Estimate Normal Platelet Morphology Normal Sodium Potassium Chloride Carbon Dioxide Anion Gap BUN Creatinine Estimated GFR Random Glucose Calcium Magnesium Total Creatine Kinase MTS Gel Crossmatch See Detail 10/05/18 06:51 WBC RBC Hgb Hct MCV MCH MCHC RDW Plt Count MPV Prelim Diff (Auto) Neut % (Auto) Lymph % (Auto) Meigs % (Auto) Eos % (Auto) Baso % (Auto) Neut # (Auto) Lymph # (Auto) Meigs # (Auto) Eos # (Auto) Baso # (Auto) WBC Differential Seg Neuts % (Manual) Band Neuts % (Manual) Lymphocytes % (Manual) Monocytes % (Manual) Eosinophils % (Manual) Abs Neuts (Manual) Differential Comment Platelet Estimate Platelet Morphology Sodium 141 Potassium 3.4 L Chloride 103 Carbon Dioxide 32.7 H Anion Gap 5 BUN 40 H Creatinine 1.59 H Estimated GFR 42 L Random Glucose 121 H Calcium 8.0 L Magnesium 1.5 Total Creatine Kinase 56 MTS Gel Crossmatch - Imaging Impressions Chest X-Ray 10/05/18 06:00 CONCLUSION: Mild basilar density, probably atelectasis. No effusion or pneumothorax. - Procedures B/l nephrostomy tube placement Assessment and Plan - Plan - GROSS HEMATURIA due to suspected bladder mass? - cont cbi, improved - ACUTE RENAL FAILURE DUE TO OBSTRUCTIVE UROPATHY - improved s/p b/l perc nephr tubes, cont ivf cr improving. - BLADDER MASS vs hematoma causing HYDRONEPHROSIS B/L L>R, concern for malignancy - urology eval, hx BPH, flomax and proscar started, dw urology, cystocopy this Friday when medically optimized preop. - ANEMIA of acute blood loss due to hematuria, significant drop in hh, currently hemodynamically stable but w active bleeding, will transfuse 1 u prbc in prep for procedure. 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
--- NOTE | 2018-10-05 16:33 | MB ---
cc: Tin Crystal MD DATE: 10/05/2018 HISTORY OF PRESENT ILLNESS: The patient is an 83-year-old male with a past medical history of COPD on 3 liters home oxygen continuously, BPH and hypertension. The patient was admitted to [facility] on 09/29/2018 under hospitalist service for hematuria and acute kidney injury. The patient underwent CT scan of the abdomen and pelvis, which showed a urinary bladder mass and eccentric wall thickening along the left side, suspicious for neoplasm in addition to obstructive uropathy with mild to moderate hydronephrosis on the right and moderate to severe hydronephrosis on the left. He was seen by Dr. Aly from urology service and planned to proceed with cystoscopy once cleared medically. The patient had a chest x-ray earlier this morning, which showed mild basilar density, probably atelectasis, no effusion or pneumothorax. Pulmonary Medicine was consulted for a COPD exacerbation. The patient states that he uses nebulizers and Breo at home. He recently moved from [place] and has not established yet with a special procedure tech. He remains an active smoker where he smokes 3/4 of a pack daily for approximately 60 years. He reports wheezing in addition to chronic cough with herndon phlegm. The patient denies any fever, chills or constitutional symptoms. In addition, he denies any prior history of intubation for COPD and no history of pneumonia. PAST MEDICAL HISTORY: Significant for COPD, BPH, hypertension. PAST SURGICAL HISTORY: Unremarkable. ALLERGIES: NO KNOWN DRUG ALLERGIES. SOCIAL HISTORY: Active smoker where he smokes 3/4 pack of cigarettes daily for 6 years. Nondrinker. FAMILY HISTORY: Noncontributing to present illness. CURRENT MEDICATIONS: Include Proscar, Flomax. REVIEW OF SYSTEMS: As per HPI. The rest of review of systems unremarkable. PHYSICAL EXAMINATION: GENERAL: An 83-year-old male lying in bed in no acute distress. VITAL SIGNS: Temperature 98.1, pulse 81, respiratory rate 17, blood pressure 139/70, saturation 93% on 3 liter oxygen. HEENT: Atraumatic, normocephalic. Pupils are equal, round and reactive to light and accommodation. Extraocular muscles intact. Conjunctivae pink. Nonicteric sclerae. Oral mucosa within normal. NECK: Supple. No JVD, adenopathy, or thyromegaly. Trachea in the midline. CARDIOVASCULAR: Regular rate and rhythm. Normal S1, S2. No murmurs, rubs or gallops. PULMONARY: Bilateral equal air entry with scattered wheezing. No crackles or rhonchi. ABDOMEN: Soft, nontender. No distention. Positive bowel sounds. EXTREMITIES: No cyanosis, clubbing or edema. NEUROLOGIC: No focal sensory deficit. LABORATORY DATA: Sodium 141, potassium 3.4, chloride 103, CO2 of 32, BUN 40, creatinine 1.59, trending down. Glucose of 121. WBC 15.5, hemoglobin 8.6, hematocrit 26, platelet count of 231. RADIOGRAPHIC STUDIES: Chest x-ray showed mild basilar density, probably atelectasis. IMPRESSION: 1. Acute hypoxemic respiratory insufficiency. 2. Chronic obstructive pulmonary disease exacerbation. 3. Atelectasis. 4. Active tobacco use. 5. Acute kidney injury. 6. Leukocytosis. 7. Anemia. 8. Hematuria. 9. Obstructive uropathy. 10. Bladder mass. RECOMMENDATIONS: 1. Continue with oxygen and maintain saturations above 92%. 2. We will place the patient on bronchodilators in the form of DuoNeb every 4 hours plus every 2 hours p.r.n. for shortness of breath. 3. Start Solu-Medrol 60 mg IV every 8 hours, first dose now. 4. We will add Symbicort 160/4.5 two puffs b.i.d. 5. Noninvasive positive pressure ventilation p.r.n. for respiratory distress. 6. Incentive spirometry every 1 hour while awake. 7. Continue with antibiotics. He was started on Levaquin. We will obtain a sputum culture. Monitor for signs of infection, which include fever and WBC. 8. We will need a pulmonary function test as an outpatient to assess the severity of his obstructive lung disease. 9. The patient is counseled regarding smoking cessation. 10. Chest x-ray from today showed mild basilar density, probably atelectasis. Otherwise, no effusion or pneumothorax. 11. Continue other medical management per primary team. 12. Further recommendations will be based on hospital course. Thank you for this consultation and allowing us to participate in this patient's care. MD DRAKE Williamson/donald , 03:43 PM , 03:53 PM
[2018-10-05] MEDS: Sodium Chloride 0.45 % Inj 1,000 ML IV.CONT SCH (17:31)
[2018-10-05] MEDS: MethylPREDNISolone Sod Succinate Inj 40 MG/ML Vial IV.PUSH SCH ×2 (17:32→21:11)
[2018-10-05] MEDS: Finasteride 5 MG Tablet PO SCH ×2 (17:37→18:20)
[2018-10-05] MEDS: Budesonide-Formoterol 160/4.5 MCG 6 GM Inhaler INH SCH (21:15)
[2018-10-06] MEDS: MethylPREDNISolone Sod Succinate Inj 40 MG/ML Vial IV.PUSH SCH ×3 (05:22→21:24)
[2018-10-06] MEDS: Sodium Chloride 0.45 % Inj 1,000 ML IV.CONT SCH ×2 (05:27→16:26)
--- NOTE | 2018-10-06 06:49 | ECG ---
Date Performed: 10/04/2018 Time Performed: 18:37:45 PTAGE: 83 years EKG: Sinus rhythm WITH SINUS ARRHYTHMIA NORMAL ECG NO PREVIOUS TRACING DOCTOR: Raul Barboza Interpretating Date/Time 10/06/2018 06:46:56
[2018-10-06 07:41] LABS: Calcium 8.2 mg/dL (8.5-10.1); Carbon Dioxide 31.9 meq/L (21.0-32.0); Magnesium 1.4 mg/dL (1.5-2.5); Potassium 3.8 meq/L (3.5-5.1)
[2018-10-06] MEDS: Senna/Docusate Sodium 8.6/50 MG Tablet PO SCH ×2 (08:27→21:24)
[2018-10-06] MEDS: amLODIPine 5 MG Tablet PO SCH (08:27)
[2018-10-06] MEDS: Budesonide-Formoterol 160/4.5 MCG 6 GM Inhaler INH SCH ×2 (08:27→21:24)
--- NOTE | 2018-10-06 08:55 | P.PNURO ---
Subjective Patient symptoms today: Pt seen and examined. Urine is clear now. Objective Vital Signs: Vital Signs 10/05/18 12:00 10/05/18 16:00 10/05/18 16:55 Temperature 98.1 F 98.8 F Pulse Rate 81 78 81 Respiratory Rate 17 16 17 Blood Pressure 139/70 137/65 Pulse Oximetry 93 L 92 L 93 L 10/05/18 19:46 10/05/18 20:00 10/05/18 23:50 Temperature 98.6 F Pulse Rate 83 86 84 Respiratory Rate 16 16 17 Blood Pressure 130/56 L Pulse Oximetry 92 L 94 L 10/06/18 00:00 10/06/18 03:34 10/06/18 07:42 Temperature 97.9 F 97.9 F Pulse Rate 81 84 95 H Respiratory Rate 21 17 20 Blood Pressure 130/63 144/68 H Pulse Oximetry 99 93 L Intake & Output 10/05/18 10/06/18 10/06/18 18:59 06:59 18:59 Intake Total 1000 / 1000 1150 / 1150 Output Total 1480 / 1480 2250 / 2250 Balance -480 / -480 -1100 / -1100 Weight 81.4 kg Intake: IV 1150 / 1150 1/2 Normal Saline Inj 1,000 ML 1000 / 1000 @ 84 mls/hr IV.CONT .[id number] [facility] Rx#:[id number] Levaquin 750 mg Premix Inj 150 150 / 150 ML @ 100 mls/hr IV.SIG Q24H [facility] Rx#:[id number] Oral 1000 / 1000 Bladder Irrigation Fluid - 0 / 0 Amount Retained Indwelling Urethral Catheter 0 / 0 Output: Urine 900 / 900 0 / 0 Urine Amount (Catheter) 1500 / 1500 Indwelling Urethral Catheter 1500 / 1500 Wound Drainage 580 / 580 750 / 750 Left Back 550 / 550 750 / 750 Right Back 30 / 30 0 / 0 Other: Bladder Irrigation Fluid - Amount Instilled Indwelling Urethral Catheter 300 Date of Last Bowel Movement 10/03/18 # Bowel Movements 0 Result Diagrams: 10/05/18 06:51 10/06/18 06:10 Medications and IVs: Active Medications Generic Name Dose Route Start Last Admin Trade Name Freq PRN Reason Stop Dose Admin Acetaminophen 650 mg 09/29/18 21:11 Tylenol PO Q4H PRN Temp > 100.4 Albuterol 1 ampul 10/05/18 15:30 Duoneb Neb (Prn) NEB Q2HR NEB PRN DYSPNEA Albuterol 1 ampul 10/05/18 16:00 10/06/18 03:34 Duoneb Neb (Yousif) NEB 1 ampul Q4HR NEB YOUSIF Administration Amlodipine Besylate 5 mg 10/03/18 09:30 10/06/18 08:27 Norvasc PO 5 mg DAILY YOUSIF Administration Belladonna Alkaloids/Opium 60 mg 09/30/18 10:17 10/01/18 10:36 B & O Supp RECTAL 60 mg Q6HR PRN Administration BLADDER SPASM Bisacodyl 10 mg 09/29/18 21:11 Dulcolax Supp RECTAL DAILY PRN SEVERE CONSITIPATION Budesonide/Formoterol Fumarate 2 puff 10/05/18 21:00 10/06/18 08:27 Symbicort 160/4.5 Mcg Inh INH 2 puff BID YOUSIF Administration Finasteride 5 mg 09/30/18 19:00 10/05/18 18:20 Proscar PO Not Given DAILY@1900 [facility] Sodium Chloride 1,000 mls @ 84 mls/hr 10/05/18 15:30 10/06/18 05:27 1/2 Normal Saline Inj IV.CONT 84 mls/hr .[id number] YOUSIF Administration Levofloxacin/Dextrose 150 mls @ 100 mls/hr 10/05/18 16:00 10/05/18 19:21 Levaquin 750 Mg Premix Inj IV.SIG Infused Q24H YOUSIF Infusion Lactulose 30 ml 09/29/18 21:11 Lactulose Liq PO DAILY PRN SEVERE CONSITIPATION Methylprednisolone Sodium Succinate 60 mg 10/05/18 16:00 10/06/18 05:22 Solumedrol Inj IV.PUSH 60 mg Q8HR YOUSIF Administration Ondansetron HCl 4 mg 09/29/18 21:11 Zofran Inj IV.PUSH Q6H PRN NAUSEA OR VOMITING Senna/Docusate Sodium 1 tab 09/30/18 09:00 10/06/18 08:27 Kristin-Colace PO 1 tab BID YOUSIF Administration Sennosides 17.2 mg 09/29/18 21:11 Senokot PO Q12H PRN Moderate Constipation Tamsulosin HCl 0.4 mg 09/30/18 19:00 10/05/18 18:20 Flomax PO Not Given DAILY@1900 [facility] Objective Remarks: Abd:soft,nt,nd Alfaro: clear urine PCNTs: Right: blood tinged; Left: clear Ext: neg C/C/E 10/04 Abd:soft,nt,nd Alfaro: clear urine PCNTs: Right: clear; Left: clear Ext: neg C/C/E 10/05 Abd:soft,nt,nd PCNT's and Alfaro: urine clear. 10/06 Abd:soft,nt,nd PCNT's and Alfaro: urine clear. Assessment and Plan - Plan 83y.o M with hx as per HPI - No acute intervention needed - Continue care as per primary team - Continue CBI and wean off once urine clears up and alfaro can be removed - Start Flomax and Proscar daily - Antbx due to leukocytosis - Renal US in 48hrs after alfaro placement to f/u on hydro - Needs to see Dr Eric SIMPSON attending as outpt for cystoscopy 10/03 83 y.o male with gross hematuria and AFR Will need cysto in future ARF resolving s/p b/l PCNT's 10/04 83 y.o male with gross hematuria and AFR which is resolving. Will need cysto in future once medically optimized. 10/05 83 y.o male with gross hematuria and AFR which is resolving. Will need cysto in future once medically optimized and cleared by pulmonary. 10/06 83 y.o male with gross hematuria and AFR which is resolving. Will need cysto in future once medically optimized and cleared by pulmonary.
--- NOTE | 2018-10-06 10:22 | P.PNPL ---
Subjective Interval history: Patient is feeling better, less wheezing. Afebrile. Physical Exam Vital signs: Vital Signs 10/05/18 12:00 10/05/18 16:00 10/05/18 16:55 Temperature 98.1 F 98.8 F Pulse Rate 81 78 81 Respiratory Rate 17 16 17 Blood Pressure 139/70 137/65 Pulse Oximetry 93 L 92 L 93 L 10/05/18 19:46 10/05/18 20:00 10/05/18 23:50 Temperature 98.6 F Pulse Rate 83 86 84 Respiratory Rate 16 16 17 Blood Pressure 130/56 L Pulse Oximetry 92 L 94 L 10/06/18 00:00 10/06/18 03:34 10/06/18 07:42 Temperature 97.9 F 97.9 F Pulse Rate 81 84 95 H Respiratory Rate 21 17 20 Blood Pressure 130/63 144/68 H Pulse Oximetry 99 93 L Intake & Output 10/05/18 10/06/18 10/06/18 18:59 06:59 18:59 Intake Total 1000 / 1000 1150 / 1150 Output Total 1480 / 1480 2250 / 2250 450 / 450 Balance -480 / -480 -1100 / -1100 -450 / -450 Weight 81.4 kg Intake: IV 1150 / 1150 1/2 Normal Saline Inj 1,000 ML 1000 / 1000 @ 84 mls/hr IV.CONT .[id number] [facility] Rx#:[id number] Levaquin 750 mg Premix Inj 150 150 / 150 ML @ 100 mls/hr IV.SIG Q24H [facility] Rx#:[id number] Oral 1000 / 1000 Bladder Irrigation Fluid - 0 / 0 Amount Retained Indwelling Urethral Catheter 0 / 0 Output: Urine 900 / 900 0 / 0 Urine Amount (Catheter) 1500 / 1500 250 / 250 Indwelling Urethral Catheter 1500 / 1500 250 / 250 Wound Drainage 580 / 580 750 / 750 200 / 200 Left Back 550 / 550 750 / 750 200 / 200 Right Back 30 / 30 0 / 0 Other: Bladder Irrigation Fluid - Amount Instilled Indwelling Urethral Catheter 300 Date of Last Bowel Movement 10/03/18 # Bowel Movements 0 - Constitutional no acute distress, average body habitus - Routine HEENT Exam Head: Present: normocephalic, atraumatic Eye: Present: EOMI, PERRL, normal accommodation, conjunctivae pink ENT: Present: mucous membranes moist - Routine Neck Exam Present: supple, full ROM, trachea midline - Routine Respiratory Exam Present: CTA bilaterally - Routine Cardiovascular Exam Present: RRR, S1, S2 - Routine Abdominal Exam Present: soft, normoactive bowel sounds - Routine Extremities Exam Present: full ROM, pulses intact, normal capillary refill - Routine Skin Exam Present: intact - Routine Neurological Exam Present: alert, oriented X3, CN II-XII intact - Routine Psychiatric Exam Present: normal affect, normal thought process - Urinary Catheter Management Indwelling Urethral Catheter Cath placed during this visit: yes Urethral indwelling: Yes Reason for continuing: Gross Hematuria Insertion date: 09/29/18 Insertion time: 17:20 Assessment and Plan - Plan 1. Respiratory insufficiency. 2. COPD exacerbation. 3. Atelectasis. 4. Active tobacco use. 5. Acute kidney injury. 6. Leukocytosis. 7. Anemia. 8. Hematuria. 9. Obstructive uropathy. 10. Bladder mass. Plan Continue with oxygen and maintain sats>92%. Bronchodilators( DuoNeb, Symbicort) Solu-Medrol 60 mg IV every 8 hours BIPAP p.r.n. for respiratory distress. Incentive spirometry Continue Levaquin. Monitor for signs of infection (fever and WBC). PFT as an outpatient to assess the severity of his obstructive lung disease. Patient is counseled regarding smoking cessation. Monitor renal function, avoid nephrotoxins, continue IVF. Patient is ok for cystoscopy in 1-2 days if continue to improve. Continue treatment plan
[2018-10-06] MEDS: Magnesium Oxide 400 MG Tablet PO SCH ×2 (10:59→21:24)
--- NOTE | 2018-10-06 14:01 | P.PN ---
Subjective Interval history: Follow-up hematuria. No recurrence. Discussed with tentative cystoscopy this if pulmonary status improves. Consider removal of Campos catheter in the morning. Patient reports of improved shortness of breath though still with expiratory wheezes Physical Exam Vital signs: Vital Signs 10/05/18 16:00 10/05/18 16:55 10/05/18 19:46 Temperature 98.8 F Pulse Rate 78 81 83 Respiratory Rate 16 17 16 Blood Pressure 137/65 Pulse Oximetry 92 L 93 L 92 L 10/05/18 20:00 10/05/18 23:50 10/06/18 00:00 Temperature 98.6 F 97.9 F Pulse Rate 86 84 81 Respiratory Rate 16 17 21 Blood Pressure 130/56 L 130/63 Pulse Oximetry 94 L 99 10/06/18 03:34 10/06/18 07:42 10/06/18 10:15 Temperature 97.9 F Pulse Rate 84 95 H 85 Respiratory Rate 17 20 18 Blood Pressure 144/68 H Pulse Oximetry 93 L 92 L 10/06/18 11:10 10/06/18 13:17 Temperature 97.8 F Pulse Rate 98 H 84 Respiratory Rate 19 18 Blood Pressure 127/70 Pulse Oximetry 92 L Intake & Output 10/05/18 10/06/18 10/06/18 18:59 06:59 18:59 Intake Total 1000 / 1000 1150 / 1150 Output Total 1480 / 1480 2250 / 2250 450 / 450 Balance -480 / -480 -1100 / -1100 -450 / -450 Weight 81.4 kg Intake: IV 1150 / 1150 1/2 Normal Saline Inj 1,000 ML 1000 / 1000 @ 84 mls/hr IV.CONT .[id number] [facility] Rx#:[id number] Levaquin 750 mg Premix Inj 150 150 / 150 ML @ 100 mls/hr IV.SIG Q24H [facility] Rx#:[id number] Oral 1000 / 1000 Bladder Irrigation Fluid - 0 / 0 Amount Retained Indwelling Urethral Catheter 0 / 0 Output: Urine 900 / 900 0 / 0 Urine Amount (Catheter) 1500 / 1500 250 / 250 Indwelling Urethral Catheter 1500 / 1500 250 / 250 Wound Drainage 580 / 580 750 / 750 200 / 200 Left Back 550 / 550 750 / 750 200 / 200 Right Back 30 / 30 0 / 0 Other: Bladder Irrigation Fluid - Amount Instilled Indwelling Urethral Catheter 300 Bladder Irrigation Fluid - Amount Drained Indwelling Urethral Catheter 250 Date of Last Bowel Movement 10/03/18 # Bowel Movements 0 Narrative: pleasant 83yo w m aaox3 mild forgetfulness no distress heart s1s2 reg lungs with improving wheezes in bilateral lobes no rhonchi abd soft nondt pos bs, b/l per neph tubes in place ext no edema , no calf tenderness Skin is warm no lesions - Urinary Catheter Management Indwelling Urethral Catheter Cath placed during this visit: yes Urethral indwelling: Yes Reason for continuing: Gross Hematuria Insertion date: 09/29/18 Insertion time: 17:20 Results - Labs CBC & Chem 7: 10/05/18 06:51 10/06/18 06:10 Laboratory Results - last 24 hr 10/06/18 06:10 Sodium 140 Potassium 3.8 Chloride 102 Carbon Dioxide 31.9 Anion Gap 6 BUN 46 H Creatinine 1.72 H Estimated GFR 38 L Random Glucose 175 H Calcium 8.2 L Magnesium 1.4 L - Procedures B/l nephrostomy tube placement Assessment and Plan - Plan - GROSS HEMATURIA due to suspected bladder mass? -Off Cbi, improved consider Campos removal in the morning. Cystoscopy this - ACUTE RENAL FAILURE DUE TO OBSTRUCTIVE UROPATHY - s/p b/l perc nephr tubes, cont ivf cr slightly worse today. - BLADDER MASS vs hematoma causing HYDRONEPHROSIS B/L L>R, concern for malignancy - urology eval, hx BPH, flomax and proscar started, dw urology, cystocopy there is when medically optimized preop. - ANEMIA of acute blood loss due to hematuria, significant drop in hh, currently hemodynamically stable but w active bleeding, will transfuse 1 u prbc in prep for procedure. - HTN - cont bp control - COPD w chronic hypoxic respiratory failure , home o2 dependent, home breo nebs prn, had mild exacerbation of copd continue Levaquin, IV supplemental , nebs prn, home breo, consult pulm for perioperative recommendations DISPO - return to home w family w home oxygen when ok w urology, if hematuria resolved and renal function and hgb stable DVT prophylaxis - scd, anticoagulants ci due to hematuria
[2018-10-06] MEDS: Finasteride 5 MG Tablet PO SCH (18:22)
[2018-10-07] MEDS: MethylPREDNISolone Sod Succinate Inj 40 MG/ML Vial IV.PUSH SCH ×3 (05:31→21:27)
[2018-10-07] MEDS: Sodium Chloride 0.45 % Inj 1,000 ML IV.CONT SCH ×2 (05:31→16:28)
[2018-10-07 08:17] LABS: Calcium 8.2 mg/dL (8.5-10.1); Carbon Dioxide 29.6 meq/L (21.0-32.0); Magnesium 1.9 mg/dL (1.5-2.5); Potassium 3.8 meq/L (3.5-5.1)
--- NOTE | 2018-10-07 09:43 | P.DCO ---
- Diagnosis (1) Gross hematuria Status: Acute - Physical Therapy Order: Evaluate and treat, Improve ambulation, Strength and gait training - Case Management Consult Case Management Consult-Home Health: Yes - Certification I have seen patient Kimani Izaguirre on 10/07/18. My clinical findings support the need for the requested home health care services because: Patient has SOB, Deconditioned with increased weakness I certify that my clinical findings support that this patient is homebound because: Hx COPD - exertion dyspnea/weakness
--- NOTE | 2018-10-07 09:43 | P.PNPL ---
Subjective Interval history: No events overnight. Patient states he is breathing better today. Physical Exam Vital signs: Vital Signs 10/06/18 10:15 10/06/18 11:10 10/06/18 13:17 Temperature 97.8 F Pulse Rate 85 98 H 84 Respiratory Rate 18 19 18 Blood Pressure 127/70 Pulse Oximetry 92 L 92 L 10/06/18 16:00 10/06/18 16:16 10/06/18 16:17 Temperature 98.0 F Pulse Rate 88 87 Respiratory Rate 16 18 Blood Pressure 126/61 Pulse Oximetry 91 L 92 L 10/06/18 20:00 10/06/18 20:05 10/07/18 00:00 Temperature 97.8 F 97.8 F Pulse Rate 92 H 88 84 Respiratory Rate 17 18 16 Blood Pressure 142/64 H 124/64 Pulse Oximetry 91 L 90 L 10/07/18 08:25 10/07/18 09:07 Temperature 97.7 F Pulse Rate 75 78 Respiratory Rate 16 18 Blood Pressure 130/62 Pulse Oximetry 90 L 92 L Intake & Output 10/06/18 10/07/18 10/07/18 18:59 06:59 18:59 Intake Total 2400 / 2400 1240 / 1240 Output Total 2270 / 2270 1950 / 1950 Balance 130 / 130 -710 / -710 Weight 81.31 kg Intake: IV 1000 / 1000 1000 / 1000 1/2 Normal Saline Inj 1,000 ML 1000 / 1000 1000 / 1000 @ 84 mls/hr IV.CONT .[id number] [facility] Rx#:[id number] Oral 1400 / 1400 240 / 240 Bladder Irrigation Fluid - 0 / 0 Amount Retained Indwelling Urethral Catheter 0 / 0 Output: Urine 1000 / 1000 Urine Amount (Catheter) 550 / 550 1350 / 1350 Indwelling Urethral Catheter 550 / 550 1350 / 1350 Wound Drainage 720 / 720 600 / 600 Left Back 700 / 700 550 / 550 Right Back 20 / 20 50 / 50 Other: Bladder Irrigation Fluid - Amount Instilled Indwelling Urethral Catheter 600 Bladder Irrigation Fluid - Amount Drained Indwelling Urethral Catheter 250 Date of Last Bowel Movement 10/06/18 # Bowel Movements 0 Weight On Admission 80 kg - Constitutional no acute distress - Routine HEENT Exam Head: Present: normocephalic, atraumatic Eye: Present: EOMI, PERRL, normal accommodation, conjunctivae pink ENT: Present: mucous membranes moist - Routine Neck Exam Present: supple, full ROM, trachea midline - Routine Respiratory Exam Present: CTA bilaterally - Routine Cardiovascular Exam Present: RRR, S1, S2 - Routine Abdominal Exam Present: soft, normoactive bowel sounds - Routine Extremities Exam Present: full ROM, pulses intact - Routine Skin Exam Present: intact - Routine Neurological Exam Present: alert, oriented X3, CN II-XII intact - Routine Psychiatric Exam Present: normal affect - Urinary Catheter Management Indwelling Urethral Catheter Cath placed during this visit: yes Urethral indwelling: Yes Reason for continuing: Gross Hematuria Insertion date: 09/29/18 Insertion time: 17:20 Assessment and Plan - Plan 1. Respiratory insufficiency. 2. COPD exacerbation. 3. Atelectasis. 4. Active tobacco use. 5. Acute kidney injury. 6. Leukocytosis. 7. Anemia. 8. Hematuria. 9. Obstructive uropathy. 10. Bladder mass. Plan Continue with oxygen and maintain sats>92%. Bronchodilators( DuoNeb, Symbicort) Decrease Solu-Medrol 40 mg IV every 8 hours BIPAP p.r.n. for respiratory distress. Incentive spirometry Check PFT's Continue Levaquin. Monitor for signs of infection (fever and WBC). PFT as an outpatient to assess the severity of his obstructive lung disease. Patient is counseled regarding smoking cessation. Monitor renal function, avoid nephrotoxins, continue IVF. Patient is ok for cystoscopy Continue treatment plan
--- NOTE | 2018-10-07 09:47 | P.PN ---
Subjective Interval history: Follow-up COPD. Still wheezing dw will not clear for cystoscopy tomorrow Physical Exam Vital signs: Vital Signs 10/06/18 10:15 10/06/18 11:10 10/06/18 13:17 Temperature 97.8 F Pulse Rate 85 98 H 84 Respiratory Rate 18 19 18 Blood Pressure 127/70 Pulse Oximetry 92 L 92 L 10/06/18 16:00 10/06/18 16:16 10/06/18 16:17 Temperature 98.0 F Pulse Rate 88 87 Respiratory Rate 16 18 Blood Pressure 126/61 Pulse Oximetry 91 L 92 L 10/06/18 20:00 10/06/18 20:05 10/07/18 00:00 Temperature 97.8 F 97.8 F Pulse Rate 92 H 88 84 Respiratory Rate 17 18 16 Blood Pressure 142/64 H 124/64 Pulse Oximetry 91 L 90 L 10/07/18 08:25 10/07/18 09:07 Temperature 97.7 F Pulse Rate 75 78 Respiratory Rate 16 18 Blood Pressure 130/62 Pulse Oximetry 90 L 92 L Intake & Output 10/06/18 10/07/18 10/07/18 18:59 06:59 18:59 Intake Total 2400 / 2400 1240 / 1240 Output Total 2270 / 2270 1950 / 1950 Balance 130 / 130 -710 / -710 Weight 81.31 kg Intake: IV 1000 / 1000 1000 / 1000 1/2 Normal Saline Inj 1,000 ML 1000 / 1000 1000 / 1000 @ 84 mls/hr IV.CONT .[id number] [facility] Rx#:[id number] Oral 1400 / 1400 240 / 240 Bladder Irrigation Fluid - 0 / 0 Amount Retained Indwelling Urethral Catheter 0 / 0 Output: Urine 1000 / 1000 Urine Amount (Catheter) 550 / 550 1350 / 1350 Indwelling Urethral Catheter 550 / 550 1350 / 1350 Wound Drainage 720 / 720 600 / 600 Left Back 700 / 700 550 / 550 Right Back 20 / 20 50 / 50 Other: Bladder Irrigation Fluid - Amount Instilled Indwelling Urethral Catheter 600 Bladder Irrigation Fluid - Amount Drained Indwelling Urethral Catheter 250 Date of Last Bowel Movement 10/06/18 # Bowel Movements 0 Weight On Admission 80 kg Narrative: pleasant 83yo w m aaox3 no distress heart s1s2 reg lungs with improving wheezes in bilateral lobes no rhonchi abd soft nondt pos bs, b/l per neph tubes in place ext no edema , no calf tenderness Skin is warm no lesions - Urinary Catheter Management Indwelling Urethral Catheter Cath placed during this visit: yes Urethral indwelling: Yes Reason for continuing: Gross Hematuria Insertion date: 09/29/18 Insertion time: 17:20 Results - Labs CBC & Chem 7: 10/05/18 06:51 10/07/18 06:30 Laboratory Results - last 24 hr 10/07/18 06:30 Sodium 143 Potassium 3.8 Chloride 107 Carbon Dioxide 29.6 Anion Gap 6 BUN 54 H Creatinine 1.72 H Estimated GFR 38 L Random Glucose 150 H Calcium 8.2 L Magnesium 1.9 - Imaging ITS Impressions Abdomen/Pelvis CT 09/29/18 16:54 CONCLUSION: 1. Intrinsic urinary bladder mass and eccentric wall thickening along the left side suspicious for neoplasm. 2. Obstructive uropathy with mild to moderate hydronephrosis on the right and moderate to severe hydronephrosis on the left. Ureteral obstruction at the ureterovesical junction is a suspected on the left. Right ureteral obstruction may be due to bladder outlet obstruction. 3. Enlarged prostate which cannot be distinguished from the bladder mass. 4. Campos catheter in place with decompression of the bladder. 5. No evidence of local regional lymphadenopathy, pelvic sidewall involvement or destructive bone lesions. 6. 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 Abdomen/Bladder Ultrasound 10/02/18 00:00 CONCLUSION: 1. Distended bladder despite Campos. 2. Bilateral hydronephrosis Nephrostomy 10/02/18 00:00 CONCLUSION: 1. Uncomplicated nephrostomy tube placement as above. Chest X-Ray 10/05/18 06:00 CONCLUSION: Mild basilar density, probably atelectasis. No effusion or pneumothorax. - Procedures B/l nephrostomy tube placement Assessment and Plan - Plan - GROSS HEMATURIA due to suspected bladder mass? -Off Cbi this am, improved consider Campos removal if ok by . Cystoscopy when medically optimized - ACUTE RENAL FAILURE DUE TO OBSTRUCTIVE UROPATHY - s/p b/l perc nephr tubes, cont ivf cr stable. - BLADDER MASS vs hematoma causing HYDRONEPHROSIS B/L L>R, concern for malignancy - urology eval, hx BPH, flomax and proscar started, dw urology, cystocopy there is when medically optimized preop. - ANEMIA of acute blood loss due to hematuria, significant drop in hh, currently hemodynamically stable s/p 1 u prbc in prep for procedure. 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
[2018-10-07] MEDS: Budesonide-Formoterol 160/4.5 MCG 6 GM Inhaler INH SCH ×2 (10:14→21:28)
[2018-10-07] MEDS: amLODIPine 5 MG Tablet PO SCH (10:15)
[2018-10-07] MEDS: Magnesium Oxide 400 MG Tablet PO SCH ×2 (10:15→21:26)
[2018-10-07] MEDS: Senna/Docusate Sodium 8.6/50 MG Tablet PO SCH ×2 (10:15→21:26)
--- NOTE | 2018-10-07 16:20 | P.PNURO ---
Subjective Patient symptoms today: Pt seen and examined. Wants to go home. Pulmonary and medicine input appreciated. Objective Vital Signs: Vital Signs 10/06/18 20:00 10/06/18 20:05 10/07/18 00:00 Temperature 97.8 F 97.8 F Pulse Rate 92 H 88 84 Respiratory Rate 17 18 16 Blood Pressure 142/64 H 124/64 Pulse Oximetry 91 L 90 L 10/07/18 08:00 10/07/18 08:25 10/07/18 09:07 Temperature 97.7 F 97.7 F Pulse Rate 75 75 78 Respiratory Rate 16 16 18 Blood Pressure 130/62 130/62 Pulse Oximetry 90 L 90 L 92 L 10/07/18 12:00 10/07/18 16:14 Temperature 97.5 F L Pulse Rate 85 76 Respiratory Rate 17 18 Blood Pressure 141/67 H Pulse Oximetry 90 L Intake & Output 10/06/18 10/07/18 10/07/18 18:59 06:59 18:59 Intake Total 2400 / 2400 1240 / 1240 Output Total 2270 / 2270 1950 / 1950 Balance 130 / 130 -710 / -710 Weight 81.31 kg Intake: IV 1000 / 1000 1000 / 1000 1/2 Normal Saline Inj 1,000 ML 1000 / 1000 1000 / 1000 @ 84 mls/hr IV.CONT .[id number] [facility] Rx#:[id number] Oral 1400 / 1400 240 / 240 Bladder Irrigation Fluid - 0 / 0 Amount Retained Indwelling Urethral Catheter 0 / 0 Output: Urine 1000 / 1000 Urine Amount (Catheter) 550 / 550 1350 / 1350 Indwelling Urethral Catheter 550 / 550 1350 / 1350 Wound Drainage 720 / 720 600 / 600 Left Back 700 / 700 550 / 550 Right Back 20 20 50 / 50 Other: Bladder Irrigation Fluid - Amount Instilled Indwelling Urethral Catheter 600 Bladder Irrigation Fluid - Amount Drained Indwelling Urethral Catheter 250 Date of Last Bowel Movement 10/06/18 # Bowel Movements 0 Weight On Admission 80 kg Result Diagrams: 10/05/18 06:51 10/07/18 06:30 Medications and IVs: Active Medications Generic Name Dose Route Start Last Admin Trade Name Freq PRN Reason Stop Dose Admin Acetaminophen 650 mg 09/29/18 21:11 Tylenol PO Q4H PRN Temp > 100.4 Albuterol 1 ampul 10/05/18 15:30 Duoneb Neb (Prn) NEB Q2HR NEB PRN DYSPNEA Albuterol 1 ampul 10/05/18 16:00 10/07/18 16:13 Duoneb Neb (Yousif) NEB 1 ampul Q4HR NEB YOUSIF Administration Amlodipine Besylate 5 mg 10/03/18 09:30 10/07/18 10:15 Norvasc PO 5 mg DAILY YOUSIF Administration Belladonna Alkaloids/Opium 60 mg 09/30/18 10:17 10/01/18 10:36 B & O Supp RECTAL 60 mg Q6HR PRN Administration BLADDER SPASM Bisacodyl 10 mg 09/29/18 21:11 Dulcolax Supp RECTAL DAILY PRN SEVERE CONSITIPATION Budesonide/Formoterol Fumarate 2 puff 10/05/18 21:00 10/07/18 10:14 Symbicort 160/4.5 Mcg Inh INH 2 puff BID [facility] Administration Finasteride 5 mg 09/30/18 19:00 10/06/18 18:22 Proscar PO 5 mg DAILY@1900 [facility] Administration Sodium Chloride 1,000 mls @ 84 mls/hr 10/05/18 15:30 10/07/18 05:31 1/2 Normal Saline Inj IV.CONT 84 mls/hr .[id number] [facility] Administration Levofloxacin/Dextrose 150 mls @ 100 mls/hr 10/07/18 17:00 Levaquin 750 Mg Premix Inj IV.SIG Q48H YOUSIF Lactulose 30 ml 09/29/18 21:11 Lactulose Liq PO DAILY PRN SEVERE CONSITIPATION Magnesium Oxide 400 mg 10/06/18 10:15 10/07/18 10:15 Mag-Ox PO 400 mg BID [facility] Administration Methylprednisolone Sodium Succinate 40 mg 10/07/18 14:00 10/07/18 13:22 Solumedrol Inj IV.PUSH 40 mg Q8HR [facility] Administration Ondansetron HCl 4 mg 09/29/18 21:11 Zofran Inj IV.PUSH Q6H PRN NAUSEA OR VOMITING Senna/Docusate Sodium 1 tab 09/30/18 09:00 10/07/18 10:15 Kristin-Colace PO 1 tab BID [facility] Administration Sennosides 17.2 mg 09/29/18 21:11 Senokot PO Q12H PRN Moderate Constipation Tamsulosin HCl 0.4 mg 09/30/18 19:00 10/06/18 18:22 Flomax PO 0.4 mg DAILY@1900 [facility] Administration Objective Remarks: Abd:soft,nt,nd Alfaro: clear urine PCNTs: Right: blood tinged; Left: clear Ext: neg C/C/E 10/04 Abd:soft,nt,nd Alfaro: clear urine PCNTs: Right: clear; Left: clear Ext: neg C/C/E 10/05 Abd:soft,nt,nd PCNT's and Alfaro: urine clear. 10/06 Abd:soft,nt,nd PCNT's and Alfaro: urine clear. 10/07 10/06 Abd:soft,nt,nd PCNT's and Alfaro: urine clear. Assessment and Plan - Plan 83y.o M with hx as per HPI - No acute intervention needed - Continue care as per primary team - Continue CBI and wean off once urine clears up and alafro can be removed - Start Flomax and Proscar daily - Antbx due to leukocytosis - Renal US in 48hrs after alfaro placement to f/u on hydro - Needs to see Dr Eric SIMPSON attending as outpt for cystoscopy 10/03 83 y.o male with gross hematuria and AFR Will need cysto in future ARF resolving s/p b/l PCNT's 10/04 83 y.o male with gross hematuria and AFR which is resolving. Will need cysto in future once medically optimized. 10/05 83 y.o male with gross hematuria and AFR which is resolving. Will need cysto in future once medically optimized and cleared by pulmonary. 10/06 83 y.o male with gross hematuria and AFR which is resolving. Will need cysto in future once medically optimized and cleared by pulmonary. 10/07 83 y.o male with gross hematuria and AFR which is resolving. Will need cysto in future as outpt.
--- NOTE | 2018-10-07 17:47 | P.DCO ---
- Diagnosis (1) Gross hematuria Status: Acute (2) Bladder mass Status: Acute - Home Health Nursing Order: Oxygen administration education, Medication education-adverse effect, Nursing assessment with vital signs, Campos catheter maintenance - Case Management Consult Case Management Consult-Home Health: Yes - Certification I have seen patient Kimani Izaguirre on 10/07/18. My clinical findings support the need for the requested home health care services because: Deconditioned with increased weakness I certify that my clinical findings support that this patient is homebound because: Hx COPD - exertion dyspnea/weakness
[2018-10-07] MEDS: Finasteride 5 MG Tablet PO SCH (19:26)
[2018-10-08] MEDS: MethylPREDNISolone Sod Succinate Inj 40 MG/ML Vial IV.PUSH SCH ×3 (05:07→20:48)
[2018-10-08] MEDS: Sodium Chloride 0.45 % Inj 1,000 ML IV.CONT SCH ×2 (05:10→15:18)
[2018-10-08 06:33] LABS: Calcium 8.1 mg/dL (8.5-10.1); Carbon Dioxide 29.7 meq/L (21.0-32.0); Magnesium 1.9 mg/dL (1.5-2.5); Potassium 3.6 meq/L (3.5-5.1)
--- NOTE | 2018-10-08 08:13 | P.PN ---
Subjective Interval history: F/u COPD. Improving shortness of breath ambulated in the hallway. Usual cough. No fever or chills. Agrees to stay because of additional treatment for pneumonia. Cystoscopy canceled can be done outpatient as he needs to recover from his respiratory infection. Discussed with family Physical Exam Vital signs: Vital Signs 10/07/18 08:25 10/07/18 09:07 10/07/18 12:00 Temperature 97.7 F 97.5 F L Pulse Rate 75 78 85 Respiratory Rate 16 18 17 Blood Pressure 130/62 141/67 H Pulse Oximetry 90 L 92 L 90 L 10/07/18 16:00 10/07/18 16:14 10/07/18 20:00 Temperature 98.8 F 97.6 F Pulse Rate 75 76 90 Respiratory Rate 17 18 22 Blood Pressure 135/68 141/58 H Pulse Oximetry 92 L 95 10/07/18 21:38 10/08/18 00:00 10/08/18 05:27 Temperature 98.4 F Pulse Rate 76 80 84 Respiratory Rate 21 20 22 Blood Pressure 134/60 Pulse Oximetry 98 94 L Intake & Output 10/07/18 10/08/18 10/08/18 18:59 06:59 18:59 Intake Total 2650 / 2650 828 / 828 Output Total 3750 / 3750 1550 / 1550 Balance -1100 / -1100 -722 / -722 Weight 83.4 kg Intake: IV 1150 / 1150 828 / 828 1/2 Normal Saline Inj 1,000 ML 1000 / 1000 828 / 828 @ 84 mls/hr IV.CONT .[id number] [facility] Rx#:[id number] Levaquin 750 mg Premix Inj 150 150 / 150 ML @ 100 mls/hr IV.SIG Q48H [facility] Rx#:[id number] Oral 1500 / 1500 Output: Urine 3100 / 3100 650 / 650 Wound Drainage 650 / 650 900 / 900 Left Back 550 / 550 750 / 750 Right Back 100 / 100 150 / 150 Other: Date of Last Bowel Movement 10/06/18 # Bowel Movements 0 Narrative: pleasant 83yo w m aaox3 no distress heart s1s2 reg lungs with improving wheezes in bilateral lobes no rhonchi abd soft nondt pos bs, b/l per neph tubes in place ext no edema , no calf tenderness Skin is warm no lesions - Urinary Catheter Management Indwelling Urethral Catheter Cath placed during this visit: yes Urethral indwelling: Yes Reason for continuing: Acute urinary retention Insertion date: 09/29/18 Insertion time: 17:20 Results - Labs CBC & Chem 7: 10/05/18 06:51 10/08/18 04:45 Laboratory Results - last 24 hr 10/07/18 10/08/18 06:30 04:45 Sodium 143 144 Potassium 3.8 3.6 Chloride 107 106 Carbon Dioxide 29.6 29.7 Anion Gap 6 8 BUN 54 H 58 H Creatinine 1.72 H 1.51 H Estimated GFR 38 L 44 L Random Glucose 150 H 150 H Calcium 8.2 L 8.1 L Magnesium 1.9 1.9 - Imaging ITS Impressions Abdomen/Pelvis CT 09/29/18 16:54 CONCLUSION: 1. Intrinsic urinary bladder mass and eccentric wall thickening along the left side suspicious for neoplasm. 2. Obstructive uropathy with mild to moderate hydronephrosis on the right and moderate to severe hydronephrosis on the left. Ureteral obstruction at the ureterovesical junction is a suspected on the left. Right ureteral obstruction may be due to bladder outlet obstruction. 3. Enlarged prostate which cannot be distinguished from the bladder mass. 4. Campos catheter in place with decompression of the bladder. 5. No evidence of local regional lymphadenopathy, pelvic sidewall involvement or destructive bone lesions. 6. 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 Abdomen/Bladder Ultrasound 10/02/18 00:00 CONCLUSION: 1. Distended bladder despite Campso. 2. Bilateral hydronephrosis Nephrostomy 10/02/18 00:00 CONCLUSION: 1. Uncomplicated nephrostomy tube placement as above. Chest X-Ray 10/08/18 09:33 CONCLUSION: New area of consolidation and effusion at the left lung base concerning for pneumonia. - Procedures B/l nephrostomy tube placement Assessment and Plan - Assessment (1) Gross hematuria Code(s): R31.0 - Gross hematuria Status: Acute (2) Bladder mass Code(s): N32.89 - Other specified disorders of bladder Status: Acute - Plan - GROSS HEMATURIA due to suspected bladder mass? -Off Cbi, resolved hematuria discontinue Campos catheter discussed with . Cystoscopy out when medically optimized - ACUTE RENAL FAILURE DUE TO OBSTRUCTIVE UROPATHY - s/p b/l perc nephr tubes, improving creatinine discontinue IV fluid. - BLADDER MASS vs hematoma causing HYDRONEPHROSIS B/L L>R, concern for malignancy - urology eval, hx BPH, flomax and proscar started, dw urology - ANEMIA of acute blood loss due to hematuria, significant drop in hh, currently hemodynamically stable s/p 1 u prbc in prep for procedure. - HTN - cont bp control - COPD w chronic hypoxic respiratory failure , home o2 dependent, home breo nebs prn, had mild exacerbation of copd Levaquin last dose today, IV supplemental , nebs prn, home breo, consulted pulm for perioperative recommendations - Left PNA with sepsis. Switch to IV Zosyn after obtaining blood cultures, sputum studies and Legionella and pneumococcal urinary antigen DISPO - return to home w family w home oxygen when ok w urology, if hematuria resolved and renal function and hgb stable DVT prophylaxis - scd, anticoagulants ci due to hematuria PT recommends rehab versus home health care with with wheeled walker Discharge Planning: Not ready for discharge patient has no pneumonia on the left lung
[2018-10-08] MEDS: Senna/Docusate Sodium 8.6/50 MG Tablet PO SCH ×2 (08:55→20:47)
[2018-10-08] MEDS: amLODIPine 5 MG Tablet PO SCH (08:55)
[2018-10-08] MEDS: Magnesium Oxide 400 MG Tablet PO SCH ×2 (09:05→20:47)
[2018-10-08] MEDS: Budesonide-Formoterol 160/4.5 MCG 6 GM Inhaler INH SCH ×2 (09:06→22:34)
--- NOTE | 2018-10-08 09:37 | P.PNPL ---
Subjective Interval history: Patient is awake, alert, denies any worsening dyspnea from baseline. Physical Exam Vital signs: Vital Signs 10/07/18 12:00 10/07/18 16:00 10/07/18 16:14 Temperature 97.5 F L 98.8 F Pulse Rate 85 75 76 Respiratory Rate 17 17 18 Blood Pressure 141/67 H 135/68 Pulse Oximetry 90 L 92 L 10/07/18 20:00 10/07/18 21:38 10/08/18 00:00 Temperature 97.6 F 98.4 F Pulse Rate 90 76 80 Respiratory Rate 22 21 20 Blood Pressure 141/58 H 134/60 Pulse Oximetry 95 98 94 L 10/08/18 05:27 10/08/18 08:00 10/08/18 08:57 Temperature 97.5 F L Pulse Rate 84 77 85 Respiratory Rate 22 18 20 Blood Pressure 131/63 Pulse Oximetry 96 94 L Intake & Output 10/07/18 10/08/18 10/08/18 18:59 06:59 18:59 Intake Total 2650 / 2650 828 / 828 Output Total 3750 / 3750 1550 / 1550 Balance -1100 / -1100 -722 / -722 Weight 83.4 kg Intake: IV 1150 / 1150 828 / 828 1/2 Normal Saline Inj 1,000 ML 1000 / 1000 828 / 828 @ 84 mls/hr IV.CONT .[id number] [facility] Rx#:[id number] Levaquin 750 mg Premix Inj 150 150 / 150 ML @ 100 mls/hr IV.SIG Q48H [facility] Rx#:[id number] Oral 1500 / 1500 Output: Urine 3100 / 3100 650 / 650 Wound Drainage 650 / 650 900 / 900 Left Back 550 / 550 750 / 750 Right Back 100 / 100 150 / 150 Other: Date of Last Bowel Movement 10/06/18 # Bowel Movements 0 - Constitutional no acute distress, average body habitus - Routine HEENT Exam Head: Present: normocephalic, atraumatic Eye: Present: EOMI, PERRL, normal accommodation, conjunctivae pink ENT: Present: mucous membranes moist - Routine Neck Exam Present: supple, full ROM, trachea midline - Routine Respiratory Exam Present: wheezes - Routine Cardiovascular Exam Present: RRR, S1, S2 - Routine Abdominal Exam Present: soft, normoactive bowel sounds - Routine Extremities Exam Present: pulses intact - Routine Skin Exam Present: intact - Routine Neurological Exam Present: alert, oriented X3, CN II-XII intact - Routine Psychiatric Exam Present: normal affect - Urinary Catheter Management Indwelling Urethral Catheter Cath placed during this visit: yes Urethral indwelling: Yes Reason for continuing: Acute urinary retention Insertion date: 09/29/18 Insertion time: 17:20 Assessment and Plan - Plan 1. Respiratory insufficiency. 2. COPD exacerbation. 3. Atelectasis. 4. Active tobacco use. 5. Acute kidney injury. 6. Leukocytosis. 7. Anemia. 8. Hematuria. 9. Obstructive uropathy. 10. Bladder mass. Plan Continue with oxygen and maintain sats>92%. Bronchodilators( DuoNeb, Symbicort) Decrease Solu-Medrol 40 mg IV every 12 hours BIPAP p.r.n. for respiratory distress. Incentive spirometry check CXR PFT_ mod- severe obstructive lung disease. FEV1: 0.68 L, FEV/FVC 54% Off abx, Monitor for signs of infection (fever and WBC). Patient is counseled regarding smoking cessation. Monitor renal function, avoid nephrotoxins, continue IVF. Continue treatment plan
--- NOTE | 2018-10-08 10:11 | XR ---
EXAM DATE: 10/08/2018 9:56 AM EST AGE/SEX: 83 years / Male INDICATIONS: Short of breath. CLINICAL DATA: This is the patient's subsequent encounter. Patient reports that signs and symptoms h ave been present for 4 - 6 days and indicates a pain score of 0/10. MEDICAL/SURGICAL HISTORY: . Chronic obstructive pulmonary disease. Hydronephrosis, bladder mass . . Bilateral nephrostomy tubes. COMPARISON: C, CHEST 1V SINGLE AP, 10/05/2018. . FINDINGS: The heart is at the upper limits of normal in size. There is left basilar effusion and consolidation. This is new when compared to previous study dated 10/05/2018. The bony structures demonstrate degenerative changes within the right shoulder. CONCLUSION: New area of consolidation and effusion at the left lung base concerning for pneumonia. Electronically signed by: Ricardo James MD 10/08/2018 10:09 AM EST
--- NOTE | 2018-10-08 10:50 | P.PNURO ---
Subjective Patient symptoms today: Pt seen and examined. Feeling better. Alfaro out. Objective Vital Signs: Vital Signs 10/07/18 12:00 10/07/18 16:00 10/07/18 16:14 Temperature 97.5 F L 98.8 F Pulse Rate 85 75 76 Respiratory Rate 17 17 18 Blood Pressure 141/67 H 135/68 Pulse Oximetry 90 L 92 L 10/07/18 20:00 10/07/18 21:38 10/08/18 00:00 Temperature 97.6 F 98.4 F Pulse Rate 90 76 80 Respiratory Rate 22 21 20 Blood Pressure 141/58 H 134/60 Pulse Oximetry 95 98 94 L 10/08/18 05:27 10/08/18 08:00 10/08/18 08:57 Temperature 97.5 F L Pulse Rate 84 77 85 Respiratory Rate 22 18 20 Blood Pressure 131/63 Pulse Oximetry 96 94 L Intake & Output 10/07/18 10/08/18 10/08/18 18:59 06:59 18:59 Intake Total 2650 / 2650 828 / 828 Output Total 3750 / 3750 1550 / 1550 Balance -1100 / -1100 -722 / -722 Weight 83.4 kg Intake: IV 1150 / 1150 828 / 828 1/2 Normal Saline Inj 1,000 ML 1000 / 1000 828 / 828 @ 84 mls/hr IV.CONT .[id number] [facility] Rx#:[id number] Levaquin 750 mg Premix Inj 150 150 / 150 ML @ 100 mls/hr IV.SIG Q48H [facility] Rx#:[id number] Oral 1500 / 1500 Output: Urine 3100 / 3100 650 / 650 Wound Drainage 650 / 650 900 / 900 Left Back 550 / 550 750 / 750 Right Back 100 / 100 150 / 150 Other: Date of Last Bowel Movement 10/06/18 # Bowel Movements 0 Result Diagrams: 10/05/18 06:51 10/08/18 04:45 Imaging: Impressions Chest X-Ray 10/08/18 09:33 CONCLUSION: New area of consolidation and effusion at the left lung base concerning for pneumonia. Medications and IVs: Active Medications Generic Name Dose Route Start Last Admin Trade Name Freq PRN Reason Stop Dose Admin Acetaminophen 650 mg 09/29/18 21:11 Tylenol PO Q4H PRN Temp > 100.4 Albuterol 1 ampul 10/05/18 15:30 Duoneb Neb (Prn) NEB Q2HR NEB PRN DYSPNEA Albuterol 1 ampul 10/05/18 16:00 10/08/18 08:57 Duoneb Neb (Yousif) NEB 1 ampul Q4HR NEB [facility] Administration Amlodipine Besylate 5 mg 10/03/18 09:30 10/08/18 08:55 Norvasc PO 5 mg DAILY [facility] Administration Belladonna Alkaloids/Opium 60 mg 09/30/18 10:17 10/01/18 10:36 B & O Supp RECTAL 60 mg Q6HR PRN Administration BLADDER SPASM Bisacodyl 10 mg 09/29/18 21:11 Dulcolax Supp RECTAL DAILY PRN SEVERE CONSITIPATION Budesonide/Formoterol Fumarate 2 puff 10/05/18 21:00 10/08/18 09:06 Symbicort 160/4.5 Mcg Inh INH 2 puff BID [facility] Administration Finasteride 5 mg 09/30/18 19:00 10/07/18 19:26 Proscar PO 5 mg DAILY@1900 [facility] Administration Sodium Chloride 1,000 mls @ 84 mls/hr 10/05/18 15:30 10/08/18 05:10 1/2 Normal Saline Inj IV.CONT 10/08/18 23:59 84 mls/hr .[id number] [facility] Administration Lactulose 30 ml 09/29/18 21:11 Lactulose Liq PO DAILY PRN SEVERE CONSITIPATION Magnesium Oxide 400 mg 10/06/18 10:15 10/08/18 09:05 Mag-Ox PO 400 mg BID [facility] Administration Methylprednisolone Sodium Succinate 40 mg 10/08/18 10:00 Solumedrol Inj IV.PUSH Q12HR [facility] Ondansetron HCl 4 mg 09/29/18 21:11 Zofran Inj IV.PUSH Q6H PRN NAUSEA OR VOMITING Senna/Docusate Sodium 1 tab 09/30/18 09:00 10/08/18 08:55 Kristin-Colace PO 1 tab BID [facility] Administration Sennosides 17.2 mg 09/29/18 21:11 Senokot PO Q12H PRN Moderate Constipation Tamsulosin HCl 0.4 mg 09/30/18 19:00 10/07/18 19:26 Flomax PO 0.4 mg DAILY@1900 [facility] Administration Objective Remarks: Abd:soft,nt,nd Alfaro: clear urine PCNTs: Right: blood tinged; Left: clear Ext: neg C/C/E 10/04 Abd:soft,nt,nd Alfaro: clear urine PCNTs: Right: clear; Left: clear Ext: neg C/C/E 10/05 Abd:soft,nt,nd PCNT's and Alfaro: urine clear. 10/06 Abd:soft,nt,nd PCNT's and Alfaro: urine clear. 10/07 Abd:soft,nt,nd PCNT's and Alfaro: urine clear. 10/08 Abd:soft,nt,nd PCNT's: urine clear. Assessment and Plan - Plan 83y.o M with hx as per HPI - No acute intervention needed - Continue care as per primary team - Continue CBI and wean off once urine clears up and alfaro can be removed - Start Flomax and Proscar daily - Antbx due to leukocytosis - Renal US in 48hrs after alfaro placement to f/u on hydro - Needs to see Dr Eric SIMPSON attending as outpt for cystoscopy 10/03 83 y.o male with gross hematuria and AFR Will need cysto in future ARF resolving s/p b/l PCNT's 10/04 83 y.o male with gross hematuria and AFR which is resolving. Will need cysto in future once medically optimized. 10/05 83 y.o male with gross hematuria and AFR which is resolving. Will need cysto in future once medically optimized and cleared by pulmonary. 10/06 83 y.o male with gross hematuria and AFR which is resolving. Will need cysto in future once medically optimized and cleared by pulmonary. 10/07 83 y.o male with gross hematuria and AFR which is resolving. Will need cysto in future as outpt. 10/08 83 y.o male with gross hematuria and ARF with bladder mass Void trial today Cysto as outpt.
[2018-10-08] MEDS ORDERED: Piperacil/Tazo 4.5 GM Premix 4.5 GM/100 ML BAG IV.SIG SCH (13:00)
[2018-10-08] MEDS: Finasteride 5 MG Tablet PO SCH (18:08)
[2018-10-08] MEDS: Piperacil/Tazo 3.375 GM Premix 50 ML IV.SIG SCH (20:47)
[2018-10-09] MEDS: Piperacil/Tazo 3.375 GM Premix 50 ML IV.SIG SCH ×4 (03:01→21:16)
[2018-10-09 06:37] LABS: Calcium 7.6 mg/dL (8.5-10.1); Carbon Dioxide 29.8 meq/L (21.0-32.0); Magnesium 1.9 mg/dL (1.5-2.5); Potassium 3.7 meq/L (3.5-5.1)
--- NOTE | 2018-10-09 09:31 | P.PNPL ---
Subjective Interval history: Patient is lying in bed in mild resp distress. Afebrile. Physical Exam Vital signs: Vital Signs 10/08/18 12:00 10/08/18 12:09 10/08/18 16:00 Temperature 97.6 F 97.7 F Pulse Rate 90 77 79 Respiratory Rate 17 18 18 Blood Pressure 117/66 123/61 Pulse Oximetry 94 L 92 L 10/08/18 16:33 10/08/18 19:48 10/08/18 20:00 Temperature 98.1 F Pulse Rate 72 79 80 Respiratory Rate 16 16 20 Blood Pressure 133/60 Pulse Oximetry 95 10/08/18 23:47 10/09/18 00:00 10/09/18 03:05 Temperature 98.2 F Pulse Rate 95 H 78 68 Respiratory Rate 20 20 20 Blood Pressure 129/62 Pulse Oximetry 95 10/09/18 08:00 Temperature 97.9 F Pulse Rate 73 Respiratory Rate 18 Blood Pressure 138/64 Pulse Oximetry 98 Intake & Output 10/08/18 10/09/18 10/09/18 18:59 06:59 18:59 Intake Total 1500 / 1500 1000 / 1000 Output Total 800 / 800 800 / 800 Balance 700 / 700 200 / 200 Weight 83 kg Intake: IV 1000 / 1000 520 / 520 1/2 Normal Saline Inj 1,000 ML 1000 / 1000 320 / 320 @ 84 mls/hr IV.CONT .[id number] [facility] Rx#:[id number] Zosyn 3.375 GM Premix 50 ML @ 100 / 100 100 mls/hr IV.SIG Q6H [facility] Rx#: [id number] Zosyn 4.5 GM Premix 4.5 gm In 100 / 100 100 ml @ 200 mls/hr IV.SIG Q6H [facility] Rx#:[id number] Oral 500 / 500 480 / 480 Output: Wound Drainage 800 / 800 800 / 800 Left Back 600 / 600 500 / 500 Right Back 200 / 200 300 / 300 Other: # Voids 0 Date of Last Bowel Movement 10/06/18 # Bowel Movements 0 0 - Constitutional mild distress, average body habitus - Routine HEENT Exam Head: Present: normocephalic, atraumatic Eye: Present: EOMI, PERRL, normal accommodation, conjunctivae pink - Routine Neck Exam Present: supple, full ROM, trachea midline - Routine Respiratory Exam Present: CTA bilaterally - Routine Cardiovascular Exam Present: RRR, S1, S2 - Routine Abdominal Exam Present: soft, normoactive bowel sounds - Routine Extremities Exam Present: full ROM, pulses intact - Routine Skin Exam Present: intact - Routine Neurological Exam Present: alert, oriented X3, CN II-XII intact - Routine Psychiatric Exam Present: normal affect - Urinary Catheter Management Indwelling Urethral Catheter Cath placed during this visit: yes, but has since been removed by the nurse Urethral indwelling: Yes Reason for continuing: Acute urinary retention Insertion date: 09/29/18 Insertion time: 17:20 Removal date: 10/08/18 Removal time: 09:30 Assessment and Plan - Plan 1. Respiratory insufficiency. 2. COPD exacerbation. 3. Left sided pneumonia 4. Active tobacco use. 5. Acute kidney injury. 6. Leukocytosis. 7. Anemia. 8. Hematuria. 9. Obstructive uropathy. 10. Bladder mass. Plan Continue with oxygen and maintain sats>92%. Bronchodilators( DuoNeb, Symbicort) Solu-Medrol 40 mg IV every 12 hours BIPAP p.r.n. for respiratory distress. Incentive spirometry CXR today showed left basilar consolidation with small effusion PFT_ mod- severe obstructive lung disease. FEV1: 0.68 L, FEV/FVC 54% Continue with Zosyn and monitor for signs of infection (fever and WBC). Check CBC today Check sputum cx. Strep pneumonia and Legionella urinary Ag negative. Monitor renal function, avoid nephrotoxins Cystoscopy as outpatient per Urology. Continue treatment plan.
[2018-10-09] MEDS: Magnesium Oxide 400 MG Tablet PO SCH ×2 (09:45→21:16)
[2018-10-09] MEDS: MethylPREDNISolone Sod Succinate Inj 40 MG/ML Vial IV.PUSH SCH ×2 (09:45→21:16)
[2018-10-09] MEDS: Senna/Docusate Sodium 8.6/50 MG Tablet PO SCH ×2 (09:45→21:16)
[2018-10-09] MEDS: amLODIPine 5 MG Tablet PO SCH (09:45)
[2018-10-09] MEDS: Budesonide-Formoterol 160/4.5 MCG 6 GM Inhaler INH SCH ×2 (09:49→21:16)
--- NOTE | 2018-10-09 10:13 | P.PNURO ---
Subjective Patient symptoms today: Pt seen and examined. Objective Vital Signs: Vital Signs 10/08/18 12:00 10/08/18 12:09 10/08/18 16:00 Temperature 97.6 F 97.7 F Pulse Rate 90 77 79 Respiratory Rate 17 18 18 Blood Pressure 117/66 123/61 Pulse Oximetry 94 L 92 L 10/08/18 16:33 10/08/18 19:48 10/08/18 20:00 Temperature 98.1 F Pulse Rate 72 79 80 Respiratory Rate 16 16 20 Blood Pressure 133/60 Pulse Oximetry 95 10/08/18 23:47 10/09/18 00:00 10/09/18 03:05 Temperature 98.2 F Pulse Rate 95 H 78 68 Respiratory Rate 20 20 20 Blood Pressure 129/62 Pulse Oximetry 95 10/09/18 08:00 10/09/18 09:37 Temperature 97.9 F Pulse Rate 73 89 Respiratory Rate 18 18 Blood Pressure 138/64 Pulse Oximetry 98 93 L Intake & Output 10/08/18 10/09/18 10/09/18 18:59 06:59 18:59 Intake Total 1500 / 1500 1000 / 1000 Output Total 800 / 800 800 / 800 Balance 700 / 700 200 / 200 Weight 83 kg Intake: IV 1000 / 1000 520 / 520 1/2 Normal Saline Inj 1,000 ML 1000 / 1000 320 / 320 @ 84 mls/hr IV.CONT .[id number] [facility] Rx#:[id number] Zosyn 3.375 GM Premix 50 ML @ 100 / 100 100 mls/hr IV.SIG Q6H [facility] Rx#: [id number] Zosyn 4.5 GM Premix 4.5 gm In 100 / 100 100 ml @ 200 mls/hr IV.SIG Q6H [facility] Rx#:[id number] Oral 500 / 500 480 / 480 Output: Wound Drainage 800 / 800 800 / 800 Left Back 600 / 600 500 / 500 Right Back 200 / 200 300 / 300 Other: # Voids 0 Date of Last Bowel Movement 10/06/18 # Bowel Movements 0 0 Result Diagrams: 10/05/18 06:51 10/09/18 05:43 Medications and IVs: Active Medications Generic Name Dose Route Start Last Admin Trade Name Freq PRN Reason Stop Dose Admin Acetaminophen 650 mg 09/29/18 21:11 Tylenol PO Q4H PRN Temp > 100.4 Albuterol 1 ampul 10/05/18 15:30 Duoneb Neb (Prn) NEB Q2HR NEB PRN DYSPNEA Albuterol 1 ampul 10/05/18 16:00 10/09/18 09:35 Duoneb Neb (Yousif) NEB 1 ampul Q4HR NEB [facility] Administration Amlodipine Besylate 5 mg 10/03/18 09:30 10/09/18 09:45 Norvasc PO 5 mg DAILY [facility] Administration Belladonna Alkaloids/Opium 60 mg 09/30/18 10:17 10/01/18 10:36 B & O Supp RECTAL 60 mg Q6HR PRN Administration BLADDER SPASM Bisacodyl 10 mg 09/29/18 21:11 Dulcolax Supp RECTAL DAILY PRN SEVERE CONSITIPATION Budesonide/Formoterol Fumarate 2 puff 10/05/18 21:00 10/09/18 09:49 Symbicort 160/4.5 Mcg Inh INH Not Given BID [facility] Finasteride 5 mg 09/30/18 19:00 10/08/18 18:08 Proscar PO 5 mg DAILY@1900 [facility] Administration Piperacillin/Tazobactam/Dextrose 50 mls @ 100 mls/hr 10/08/18 20:00 10/09/18 09:43 Zosyn 3.375 Gm Premix IV.SIG 100 mls/hr Q6H [facility] Administration Sodium Chloride 1,000 mls @ 84 mls/hr 10/09/18 10:15 1/2 Normal Saline Inj IV.CONT .[id number] [facility] Lactulose 30 ml 09/29/18 21:11 10/08/18 11:25 Lactulose Liq PO 30 ml DAILY PRN Administration SEVERE CONSITIPATION Magnesium Oxide 400 mg 10/06/18 10:15 10/09/18 09:45 Mag-Ox PO 400 mg BID [facility] Administration Methylprednisolone Sodium Succinate 40 mg 10/08/18 10:00 10/09/18 09:45 Solumedrol Inj IV.PUSH 40 mg Q12HR [facility] Administration Ondansetron HCl 4 mg 09/29/18 21:11 Zofran Inj IV.PUSH Q6H PRN NAUSEA OR VOMITING Senna/Docusate Sodium 1 tab 09/30/18 09:00 10/09/18 09:45 Kristin-Colace PO 1 tab BID [facility] Administration Sennosides 17.2 mg 09/29/18 21:11 Senokot PO Q12H PRN Moderate Constipation Sodium Chloride 2 ml 10/08/18 21:00 10/09/18 09:45 Ns Flush IV.FLUSH Not Given BID [facility] Sodium Chloride 2 ml 10/08/18 11:26 Ns Flush IV.FLUSH PRN PRN FLUSH AFTER USING IV ACCESS Tamsulosin HCl 0.4 mg 09/30/18 19:00 10/08/18 18:08 Flomax PO 0.4 mg DAILY@1900 [facility] Administration Objective Remarks: Abd:soft,nt,nd Alfaro: clear urine PCNTs: Right: blood tinged; Left: clear Ext: neg C/C/E 10/04 Abd:soft,nt,nd Alfaro: clear urine PCNTs: Right: clear; Left: clear Ext: neg C/C/E 10/05 Abd:soft,nt,nd PCNT's and Alfaro: urine clear. 10/06 Abd:soft,nt,nd PCNT's and Alfaro: urine clear. 10/07 Abd:soft,nt,nd PCNT's and Alfaro: urine clear. 10/08 Abd:soft,nt,nd PCNT's: urine clear. 10/09 Abd:soft,nt,nd PCNT's: urine clear. Assessment and Plan - Plan 83y.o M with hx as per HPI - No acute intervention needed - Continue care as per primary team - Continue CBI and wean off once urine clears up and alfaro can be removed - Start Flomax and Proscar daily - Antbx due to leukocytosis - Renal US in 48hrs after alfaro placement to f/u on hydro - Needs to see Dr Eric SIMPSON attending as outpt for cystoscopy 10/03 83 y.o male with gross hematuria and AFR Will need cysto in future ARF resolving s/p b/l PCNT's 10/04 83 y.o male with gross hematuria and AFR which is resolving. Will need cysto in future once medically optimized. 10/05 83 y.o male with gross hematuria and AFR which is resolving. Will need cysto in future once medically optimized and cleared by pulmonary. 10/06 83 y.o male with gross hematuria and AFR which is resolving. Will need cysto in future once medically optimized and cleared by pulmonary. 10/07 83 y.o male with gross hematuria and AFR which is resolving. Will need cysto in future as outpt. 10/08 83 y.o male with gross hematuria and ARF with bladder mass Void trial today Cysto as outpt. 10/09 83 y.o male with gross hematuria and ARF with bladder mass Cysto as outpt.
[2018-10-09 11:10] LABS: Baso % (Auto) 0.2 % (0.0-2.0); Hematocrit 29.3 % (39.0-51.0); Hemoglobin 9.4 gm/dL (13.0-17.0); Lymph # (Auto) 0.7 th/mm3 (1.0-4.8); Lymph % (Auto) 4.5 % (9.0-44.0); Mean Corpuscular Hemoglobin 30.4 pg (27.0-34.0); Mean Corpuscular Volume 94.9 fL (80.0-100.0); Mono # (Auto) 1.1 th/mm3 (0.0-0.9); Mono % (Auto) 6.9 % (0.0-8.0); Neut # (Auto) 14.2 th/mm3 (1.8-7.7); Neut % (Auto) 88.4 % (16.0-70.0); Platelet Count 271 th/mm3 (150-450); Red Blood Count 3.09 mil/mm3 (4.50-5.90); Red Cell Distribution Width 15.4 % (11.6-17.2); White Blood Count 16.1 th/mm3 (4.0-11.0)
[2018-10-09 12:00] LABS: Lymphocytes 5 % (9-44); Metamyelocytes 1 % (0-1); Monocytes 5 % (0-8); Myelocytes 3 % (0-0); Promyelocyte 1 % (0-0)
[2018-10-09 12:01] LABS: Hypersegmented Neutrophils 1+; Platelet Estimate Normal (Normal); Platelet Morphology Normal (Normal)
--- NOTE | 2018-10-09 14:06 | P.PN ---
Subjective Interval history: Follow-up pneumonia and COPD. States his breathing is about the same was in mild respiratory distress earlier today per pulmonary. Has not been out of bed. Physical Exam Vital signs: Vital Signs 10/08/18 16:00 10/08/18 16:33 10/08/18 19:48 Temperature 97.7 F Pulse Rate 79 72 79 Respiratory Rate 18 16 16 Blood Pressure 123/61 Pulse Oximetry 92 L 10/08/18 20:00 10/08/18 23:47 10/09/18 00:00 Temperature 98.1 F 98.2 F Pulse Rate 80 95 H 78 Respiratory Rate 20 20 20 Blood Pressure 133/60 129/62 Pulse Oximetry 95 95 10/09/18 03:05 10/09/18 08:00 10/09/18 09:37 Temperature 97.9 F Pulse Rate 68 73 89 Respiratory Rate 20 18 18 Blood Pressure 138/64 Pulse Oximetry 98 93 L 10/09/18 12:00 Temperature 97.8 F Pulse Rate 78 Respiratory Rate 20 Blood Pressure 126/60 Pulse Oximetry 93 L Intake & Output 10/08/18 10/09/18 10/09/18 18:59 06:59 18:59 Intake Total 1500 / 1500 1000 / 1000 Output Total 800 / 800 800 / 800 Balance 700 / 700 200 / 200 Weight 83 kg Intake: IV 1000 / 1000 520 / 520 1/2 Normal Saline Inj 1,000 ML 1000 / 1000 320 / 320 @ 84 mls/hr IV.CONT .[id number] [facility] Rx#:[id number] Zosyn 3.375 GM Premix 50 ML @ 100 / 100 100 mls/hr IV.SIG Q6H [facility] Rx#: [id number] Zosyn 4.5 GM Premix 4.5 gm In 100 / 100 100 ml @ 200 mls/hr IV.SIG Q6H [facility] Rx#:[id number] Oral 500 / 500 480 / 480 Output: Wound Drainage 800 / 800 800 / 800 Left Back 600 / 600 500 / 500 Right Back 200 / 200 300 / 300 Other: # Voids 0 Date of Last Bowel Movement 10/06/18 # Bowel Movements 0 0 Narrative: pleasant 83yo w m aaox3 no distress heart s1s2 reg lungs with improving wheezes in bilateral lobes no rhonchi abd soft nondt pos bs, b/l per neph tubes in place ext no edema , no calf tenderness Skin is warm no lesions - Urinary Catheter Management Indwelling Urethral Catheter Cath placed during this visit: yes, but has since been removed by the nurse Urethral indwelling: Yes Reason for continuing: Acute urinary retention Insertion date: 09/29/18 Insertion time: 17:20 Removal date: 10/08/18 Removal time: 09:30 Results - Labs CBC & Chem 7: 10/09/18 10:44 10/09/18 05:43 Laboratory Results - last 24 hr 10/09/18 10/09/18 05:43 10:44 WBC 16.1 H RBC 3.09 L Hgb 9.4 L Hct 29.3 L MCV 94.9 MCH 30.4 MCHC 32.0 RDW 15.4 Plt Count 271 MPV 9.0 Prelim Diff (Auto) Slide review pending Neut % (Auto) 88.4 H Lymph % (Auto) 4.5 L [place] % (Auto) 6.9 Eos % (Auto) 0.0 Baso % (Auto) 0.2 Neut # (Auto) 14.2 H Lymph # (Auto) 0.7 L [place] # (Auto) 1.1 H Eos # (Auto) 0.0 Baso # (Auto) 0.0 WBC Differential Manual diff final Seg Neuts % (Manual) 84 H Band Neuts % (Manual) 1 Lymphocytes % (Manual) 5 L Monocytes % (Manual) 5 Metamyelocytes % (Man) 1 Myelocytes % (Man) 3 H Promyelocytes % (Man) 1 H Abs Neuts (Manual) 14.5 H Differential Comment . Hypersegmented Neuts 1+ H Platelet Estimate Normal Platelet Morphology Normal Sodium 144 Potassium 3.7 Chloride 107 Carbon Dioxide 29.8 Anion Gap 7 BUN 54 H Creatinine 1.62 H Estimated GFR 41 L Random Glucose 161 H Calcium 7.6 L Magnesium 1.9 Microbiology 10/08/18 13:25 Blood - Peripheral Aerobic Blood Culture - Preliminary No growth in 1 day 10/08/18 13:25 Blood - Peripheral Anaerobic Blood Culture - Preliminary No growth in 1 day 10/08/18 13:30 Blood - Peripheral Aerobic Blood Culture - Preliminary No growth in 1 day 10/08/18 13:30 Blood - Peripheral Anaerobic Blood Culture - Preliminary No growth in 1 day 10/08/18 14:04 Urine - Other Streptococcus pneumoniae Antigen (M - Final Presumptive negative for streptococcus pneumoniae antigen, suggesting no current or recent infection. Infection due to Streptococcus pneumoniae cannot be ruled out since the antigen present in the sample may be below the detection limit of the test. 10/08/18 14:04 Urine - Other Legionella Antigen - Final Presumptive negative for Legionella pneumophila serogroup 1 antigen in urine, suggesting no recent or recurrent infection. Infection due to Legionella cannot be ruled out since other serogroups and species may cause disease, antigen may not be present in urine in early infection, and the level of antigen present in the urine may be below the detection limit of the test. - Procedures B/l nephrostomy tube placement Assessment and Plan - Assessment (1) Gross hematuria Code(s): R31.0 - Gross hematuria Status: Acute (2) Bladder mass Code(s): N32.89 - Other specified disorders of bladder Status: Acute - Plan - GROSS HEMATURIA due to suspected bladder mass? -Off Cbi, resolved hematuria discontinue Campos catheter discussed with . Cystoscopy out when medically optimized - ACUTE RENAL FAILURE DUE TO OBSTRUCTIVE UROPATHY - s/p b/l perc nephr tubes, improving creatinine discontinue IV fluid. - BLADDER MASS vs hematoma causing HYDRONEPHROSIS B/L L>R, concern for malignancy - urology eval, hx BPH, flomax and proscar started, dw urology - ANEMIA of acute blood loss due to hematuria, significant drop in hh, currently hemodynamically stable s/p 1 u prbc in prep for procedure. - HTN - cont bp control - COPD exacerbation w chronic hypoxic respiratory failure , continue oxygen, nebulizations and IV steroids. Slowly improving increase activity as tolerated. Tobacco cessation - Left PNA with sepsis. Continue IV Zosyn negative Legionella and pneumococcal urinary antigen. Blood cultures negative to date DISPO - return to home w family w home oxygen possibly in the morning DVT prophylaxis - scd, anticoagulants ci due to hematuria PT recommends home health care with with wheeled walker Discharge Planning: Not ready for discharge patient has no pneumonia on the left lung with COPD exacerbation
[2018-10-09] MEDS: Sodium Chloride 0.45 % Inj 1,000 ML IV.CONT SCH ×2 (18:04→21:16)
[2018-10-09] MEDS: Finasteride 5 MG Tablet PO SCH (18:11)
[2018-10-10] MEDS: Piperacil/Tazo 3.375 GM Premix 50 ML IV.SIG SCH ×4 (02:01→20:49)
--- NOTE | 2018-10-10 07:49 | P.PNPL ---
Subjective Interval history: Patient is lying in bed in NAD. Afebrile. Physical Exam Vital signs: Vital Signs 10/09/18 08:00 10/09/18 09:37 10/09/18 12:00 Temperature 97.9 F 97.8 F Pulse Rate 73 89 78 Respiratory Rate 18 18 20 Blood Pressure 138/64 126/60 Pulse Oximetry 98 93 L 93 L 10/09/18 16:00 10/09/18 16:57 10/09/18 19:45 Temperature 98.6 F 98.1 F Pulse Rate 74 79 Respiratory Rate 17 14 22 Blood Pressure 139/63 148/67 H Pulse Oximetry 90 L 95 10/09/18 20:21 10/10/18 00:00 10/10/18 00:04 Temperature 98.2 F Pulse Rate 83 81 82 Respiratory Rate 22 20 16 Blood Pressure 134/62 Pulse Oximetry 93 L 95 10/10/18 03:50 10/10/18 05:05 Temperature 97.6 F Pulse Rate 84 80 Respiratory Rate 20 16 Blood Pressure 136/74 Pulse Oximetry 94 L Intake & Output 10/09/18 10/10/18 10/10/18 18:59 06:59 18:59 Intake Total 575 / 575 1580 / 1580 Output Total 510 / 510 700 / 700 Balance 65 / 65 880 / 880 Weight 83.4 kg Intake: IV 100 / 100 1100 / 1100 1/2 Normal Saline Inj 1,000 ML 1000 / 1000 @ 84 mls/hr IV.CONT .[id number] [facility] Rx#:[id number] Zosyn 3.375 GM Premix 50 ML @ 100 / 100 100 / 100 100 mls/hr IV.SIG Q6H [facility] Rx#: [id number] Oral 475 / 475 480 / 480 Output: Urine 25 / 25 Wound Drainage 510 / 510 675 / 675 Left Back 450 / 450 675 / 675 Right Back 60 / 60 Other: Date of Last Bowel Movement 10/06/18 # Bowel Movements 0 - Constitutional no acute distress - Routine HEENT Exam Head: Present: normocephalic, atraumatic Eye: Present: EOMI, PERRL, normal accommodation, conjunctivae pink ENT: Present: mucous membranes moist - Routine Neck Exam Present: supple, full ROM, trachea midline - Routine Respiratory Exam Present: CTA bilaterally - Routine Cardiovascular Exam Present: RRR, S1, S2 - Routine Abdominal Exam Present: soft, normoactive bowel sounds - Routine Extremities Exam Present: full ROM, pulses intact - Routine Skin Exam Present: intact - Routine Neurological Exam Present: alert, oriented X3, CN II-XII intact - Routine Psychiatric Exam Present: normal affect - Urinary Catheter Management Indwelling Urethral Catheter Cath placed during this visit: yes, but has since been removed by the nurse Urethral indwelling: Yes Reason for continuing: Acute urinary retention Insertion date: 09/29/18 Insertion time: 17: Removal date: 10/08/18 Removal time: 09:30 Assessment and Plan - Plan 1. Respiratory insufficiency. 2. COPD exacerbation. 3. Left sided pneumonia 4. Active tobacco use. 5. Acute kidney injury. 6. Leukocytosis. 7. Anemia. 8. Hematuria. 9. Obstructive uropathy. 10. Bladder mass. Plan Continue with oxygen and maintain sats>92%. Bronchodilators( DuoNeb, Symbicort) Decrease Solu-Medrol 40 mg IV daily BIPAP p.r.n. for respiratory distress. Incentive spirometry CXR 10/08 showed left basilar consolidation with small effusion PFT_ mod- severe obstructive lung disease. FEV1: 0.68 L, FEV/FVC 54% Continue with Zosyn and monitor for signs of infection (fever and WBC). Check sputum cx. Strep pneumonia and Legionella urinary Ag negative. Monitor renal function, avoid nephrotoxins Cystoscopy as outpatient per Urology. Continue treatment plan.
[2018-10-10 08:12] LABS: Calcium 8.1 mg/dL (8.5-10.1); Carbon Dioxide 32.3 meq/L (21.0-32.0); Magnesium 2.3 mg/dL (1.5-2.5); Potassium 3.8 meq/L (3.5-5.1)
[2018-10-10] MEDS: Budesonide-Formoterol 160/4.5 MCG 6 GM Inhaler INH SCH ×2 (10:00→22:29)
[2018-10-10] MEDS: amLODIPine 5 MG Tablet PO SCH (10:15)
[2018-10-10] MEDS: MethylPREDNISolone Sod Succinate Inj 40 MG/ML Vial IV.PUSH SCH (10:15)
[2018-10-10] MEDS: Senna/Docusate Sodium 8.6/50 MG Tablet PO SCH ×2 (10:15→22:28)
[2018-10-10] MEDS: Magnesium Oxide 400 MG Tablet PO SCH ×2 (10:16→22:28)
--- NOTE | 2018-10-10 14:03 | P.PN ---
Subjective Interval history: Agrees to rehab. Right nephrostomy tube pulled out dw RN IR has been contacted will alert Physical Exam Vital signs: Vital Signs 10/09/18 16:00 10/09/18 16:57 10/09/18 19:45 Temperature 98.6 F 98.1 F Pulse Rate 74 79 Respiratory Rate 17 14 22 Blood Pressure 139/63 148/67 H Pulse Oximetry 90 L 95 10/09/18 20:21 10/10/18 00:00 10/10/18 00:04 Temperature 98.2 F Pulse Rate 83 81 82 Respiratory Rate 22 20 16 Blood Pressure 134/62 Pulse Oximetry 93 L 95 10/10/18 03:50 10/10/18 05:05 10/10/18 08:00 Temperature 97.6 F 97.7 F Pulse Rate 84 80 87 Respiratory Rate 20 16 20 Blood Pressure 136/74 136/61 Pulse Oximetry 94 L 92 L 10/10/18 09:30 10/10/18 12:00 10/10/18 12:04 Temperature 98.1 F Pulse Rate 86 Respiratory Rate 16 20 16 Blood Pressure 125/60 Pulse Oximetry 91 L Intake & Output 10/09/18 10/10/18 10/10/18 18:59 06:59 18:59 Intake Total 575 / 575 1580 / 1580 Output Total 510 / 510 700 / 700 Balance 65 / 65 880 / 880 Weight 83.4 kg Intake: IV 100 / 100 1100 / 1100 1/2 Normal Saline Inj 1,000 ML 1000 / 1000 @ 84 mls/hr IV.CONT .[id number] HO Rx#:[id number] Zosyn 3.375 GM Premix 50 ML @ 100 / 100 100 / 100 100 mls/hr IV.SIG Q6H HO Rx#: [id number] Oral 475 / 475 480 / 480 Output: Urine 25 / 25 Wound Drainage 510 / 510 675 / 675 Left Back 450 / 450 675 / 675 Right Back 60 / 60 Other: Date of Last Bowel Movement 10/06/18 # Bowel Movements 0 Narrative: pleasant 83yo w m aaox3 no distress heart s1s2 reg lungs with improving wheezes in bilateral lobes no rhonchi abd soft nondt pos bs, left per neph tube in place ext no edema , no calf tenderness Skin is warm no lesions - Urinary Catheter Management Indwelling Urethral Catheter Cath placed during this visit: yes, but has since been removed by the nurse Urethral indwelling: Yes Reason for continuing: Acute urinary retention Insertion date: 09/29/18 Insertion time: 17:20 Removal date: 10/08/18 Removal time: 09:30 Results - Labs CBC & Chem 7: 10/09/18 10:44 10/10/18 07:02 Laboratory Results - last 24 hr 10/10/18 07:02 Sodium 146 H Potassium 3.8 Chloride 108 H Carbon Dioxide 32.3 H Anion Gap 6 BUN 54 H Creatinine 1.51 H Estimated GFR 44 L Random Glucose 145 H Calcium 8.1 L Magnesium 2.3 Microbiology 10/08/18 13:25 Blood - Peripheral Aerobic Blood Culture - Preliminary No growth in 2 days 10/08/18 13:25 Blood - Peripheral Anaerobic Blood Culture - Preliminary No growth in 2 days 10/08/18 13:30 Blood - Peripheral Aerobic Blood Culture - Preliminary No growth in 2 days 10/08/18 13:30 Blood - Peripheral Anaerobic Blood Culture - Preliminary No growth in 2 days - Procedures B/l nephrostomy tube placement Assessment and Plan - Assessment (1) Gross hematuria Code(s): R31.0 - Gross hematuria Status: Acute (2) Bladder mass Code(s): N32.89 - Other specified disorders of bladder Status: Acute - Plan - GROSS HEMATURIA due to suspected bladder mass? -Off Cbi, resolved hematuria discontinue Campos catheter discussed with . Cystoscopy outpt when medically optimized - ACUTE RENAL FAILURE DUE TO OBSTRUCTIVE UROPATHY - s/p b/l perc nephr tubes, improving creatinine continue IV fluid. R tube out IR contacted - BLADDER MASS vs hematoma causing HYDRONEPHROSIS B/L L>R, concern for malignancy - urology eval, hx BPH, flomax and proscar started, dw urology - ANEMIA of acute blood loss due to hematuria, significant drop in hh, currently hemodynamically stable s/p 1 u prbc in prep for procedure. - HTN - cont bp control - COPD exacerbation w chronic hypoxic respiratory failure , continue oxygen, nebulizations and IV steroids. Slowly improving increase activity as tolerated. Tobacco cessation - Left PNA with sepsis. Stable persistent leukocytosis on steroids Continue IV Zosyn negative Legionella and pneumococcal urinary antigen. Blood cultures negative to date DISPO -SNF when arranged DVT prophylaxis - scd, anticoagulants ci due to hematuria PT recommends rehab Discharge Planning: Dc to SNF when arranged
[2018-10-10] MEDS: Sodium Chloride 0.45 % Inj 1,000 ML IV.CONT SCH ×2 (16:00→20:04)
[2018-10-10] MEDS ORDERED: fentaNYL Citrate Inj 100 MCG/2 ML Ampul ONE (18:04)
[2018-10-10] MEDS ORDERED: Lidocaine PF 1% Inj 30 ML Vial ONE (18:06)
--- NOTE | 2018-10-10 18:40 | P.RAD ---
Post Procedure Progress Note - Pre Procedure Diagnosis (1) Displacement of nephrostomy catheter, initial encounter - Post Procedure Diagnosis (1) Displacement of nephrostomy catheter, initial encounter - Procedure Information Procedure Date: 10/10/18 Supervising Radiologist: Jermain Hancock Jr, MD Proceduralist/Assist: Jax Chandler Anesthesia: Other - Plan of Activity Patient to Unit: PACU Patient Condition: Good See PACS Report for procedural detail/treatment. Drainage Procedure Fluoroscopy right Nephrostomy Replacement [place] Tube Size: 8 Drainage: [place] drainage Fluid Description: Bloody Findings: Original right nephrostomy tube has been pulled out. No tract to gain access. US and fluoro guided right PCN tube placement performed. Mild hematuria noted. Drain sutured in place. Plan: To PACU
[2018-10-10] MEDS ORDERED: Iohexol 350 MG/ML 50 ML Vial (for Rad Diag) IV.PUSH ONE (18:48)
--- NOTE | 2018-10-10 19:11 | IR ---
EXAM DATE: 10/10/2018 7:06 PM EST AGE/SEX: 83 years / Male INDICATIONS: Patient with bilateral neph tubes. Right tube pulled put. CLINICAL DATA: This is the patient's subsequent encounter. Patient reports that signs and symptoms h ave been present for 1 day and indicates a pain score of 0/10. MEDICAL/SURGICAL HISTORY: Carcinoma, bladder. Chronic obstructive pulmonary disease. BPH . Bi lateral neph tubes [place] [facility] [place]. . FLUORO TIME (min): 1.42 IMAGE SERIES: 4 SEDATION TIME (min): 30 CONTRAST (cc): 20 cc Omnipaque (iohexol) 350 MEDICATION(S): 100 mcg fentanyl (Sublimaze) IV 2 mg lorazepam (Ativan) IV DEVICE(S): 8 [place] nephrostomy catheter . . PROCEDURE : 1. Ultrasound-guided puncture of the kidney. 2. Antegrade percutaneous pyelogram. 3. Percutaneous nephrostomy placement. 4. Conscious sedation with continuous EKG and oximetry monitoring. The risks, benefits and alternatives to the procedure were explained and verbal and written consent w as obtained. The site was prepped in sterile fashion. Full sterile technique was used, including ca p, mask, sterile gloves and gown and a large sterile sheet. Hand hygiene and 2% chlorhexidine and/or betadine/alcohol prep was utilized per protocol for cutaneous antisepsis. Sterile gel and sterile probe cover were utilized for ultrasound guidance. The skin and subcutaneous tissues were infiltrate d with local anesthetic solution. Attempts at gaining access down the original tract were unsuccessful. This is not surprising giving t he recent placement of the tube. With ultrasound and fluoroscopic guidance the right kidney was punct ured and a percutaneous antegrade pyelogram was performed demonstrating a dilated collecting system. Serial dilatation was performed and a prescribed nephrostomy tube was placed within the renal pelvis and sutured in place. Conscious sedation was performed with the prescribed dosages and duration as above in the presence of an independent trained radiology nurse to assist in the monitoring of the patient. EKG and oximetry remained stable throughout the procedure. The patient tolerated the procedure well and there were n o complications. The patient was sent to post anesthesia recovery in stable condition. CONCLUSION: 1. Uncomplicated right nephrostomy tube placement as above. Mild hematuria noted. Electronically signed by: Jermain Hancock MD 10/10/2018 7:09 PM EST
[2018-10-10] MEDS: Finasteride 5 MG Tablet PO SCH (19:17)
[2018-10-11] MEDS: Sodium Chloride 0.45 % Inj 1,000 ML IV.CONT SCH ×3 (04:42→16:11)
[2018-10-11] MEDS: Piperacil/Tazo 3.375 GM Premix 50 ML IV.SIG SCH ×4 (04:42→20:25)
[2018-10-11 06:05] LABS: Calcium 8.4 mg/dL (8.5-10.1); Carbon Dioxide 33.9 meq/L (21.0-32.0); Potassium 3.5 meq/L (3.5-5.1)
--- NOTE | 2018-10-11 07:23 | P.PN ---
Subjective Interval history: Follow-up obstructive uropathy, acute kidney injury, pneumonia and COPD. Transferred to [facility] after right nephrostomy tube replacement secondary to G. Currently alert and oriented has no complaints. Both nephrostomy tubes draining right tube with blood-tinged urine Physical Exam Vital signs: Vital Signs 10/10/18 08:00 10/10/18 09:30 10/10/18 12:00 Temperature 97.7 F 98.1 F Pulse Rate 87 86 Respiratory Rate 20 16 20 Blood Pressure 136/61 125/60 Pulse Oximetry 92 L 91 L 10/10/18 12:04 10/10/18 16:00 10/10/18 18:50 Temperature 98.4 F 98.0 F Pulse Rate 85 74 Respiratory Rate 16 18 14 Blood Pressure 115/60 143/63 H Pulse Oximetry 90 L 91 L 10/10/18 19:00 10/10/18 19:15 10/10/18 19:30 Temperature Pulse Rate 71 67 67 Respiratory Rate 21 16 17 Blood Pressure 134/72 124/64 122/64 Pulse Oximetry 94 L 98 98 10/10/18 19:45 10/10/18 20:00 10/10/18 20:30 Temperature 97.6 F Pulse Rate 67 67 65 Respiratory Rate 16 17 16 Blood Pressure 119/64 139/67 159/66 H Pulse Oximetry 98 97 98 10/10/18 20:45 10/10/18 21:00 10/10/18 21:30 Temperature 97.6 F Pulse Rate 65 71 Respiratory Rate 22 22 Blood Pressure 139/63 141/66 H Pulse Oximetry 98 97 94 L 10/10/18 22:00 10/10/18 23:00 10/10/18 23:41 Temperature Pulse Rate 62 60 65 Respiratory Rate 16 Blood Pressure Pulse Oximetry 96 10/11/18 00:00 10/11/18 01:00 10/11/18 02:00 Temperature Pulse Rate 74 62 64 Respiratory Rate 32 H Blood Pressure 136/60 Pulse Oximetry 94 L 10/11/18 03:00 10/11/18 04:00 10/11/18 04:30 Temperature 97.5 F L Pulse Rate 75 72 69 Respiratory Rate 16 18 Blood Pressure 147/72 H Pulse Oximetry 96 10/11/18 05:00 10/11/18 06:00 Temperature Pulse Rate 74 76 Respiratory Rate Blood Pressure Pulse Oximetry Intake & Output 10/10/18 10/11/18 10/11/18 18:59 06:59 18:59 Intake Total 100 / 100 1200 / 1200 Output Total 250 / 250 Balance 100 / 100 950 / 950 Weight 83 kg Intake: IV 100 / 100 1100 / 1100 1/2 Normal Saline Inj 1,000 ML 1000 / 1000 @ 84 mls/hr IV.CONT .[id number] HO Rx#:[id number] Zosyn 3.375 GM Premix 50 ML @ 100 / 100 100 / 100 100 mls/hr IV.SIG Q6H HO Rx#: [id number] Oral 0 / 0 Other 100 / 100 Output: Wound Drainage 250 / 250 Left Back 150 / 150 Right Back 100 / 100 Other: Other Intake Source Saline Solution Date of Last Bowel Movement 10/06/18 Narrative: pleasant 83yo w m aaox3 no distress heart s1s2 reg lungs with out wheezes abd soft nondt pos bs, bilateral per neph tube in place ext no edema , no calf tenderness Skin is warm no lesions - Urinary Catheter Management Indwelling Urethral Catheter Cath placed during this visit: yes, but has since been removed by the nurse Urethral indwelling: Yes Reason for continuing: Acute urinary retention Insertion date: 09/29/18 Insertion time: 17:20 Removal date: 10/08/18 Removal time: 09:30 Results - Labs CBC & Chem 7: 10/09/18 10:44 10/11/18 04:31 Laboratory Results - last 24 hr 10/10/18 10/11/18 07:02 04:31 Sodium 146 H 146 H Potassium 3.8 3.5 Chloride 108 H 109 H Carbon Dioxide 32.3 H 33.9 H Anion Gap 6 3 L BUN 54 H 42 H Creatinine 1.51 H 1.37 H Estimated GFR 44 L 50 L Random Glucose 145 H 89 Calcium 8.1 L 8.4 L Magnesium 2.3 Microbiology 10/08/18 13:25 Blood - Peripheral Aerobic Blood Culture - Preliminary No growth in 2 days 10/08/18 13:25 Blood - Peripheral Anaerobic Blood Culture - Preliminary No growth in 2 days 10/08/18 13:30 Blood - Peripheral Aerobic Blood Culture - Preliminary No growth in 2 days 10/08/18 13:30 Blood - Peripheral Anaerobic Blood Culture - Preliminary No growth in 2 days - Imaging Impressions Nephrostomy 10/10/18 00:00 CONCLUSION: 1. Uncomplicated right nephrostomy tube placement as above. Mild hematuria noted. - Procedures B/l nephrostomy tube placement Second right nephrostomy tube placement Assessment and Plan - Assessment (1) Gross hematuria Code(s): R31.0 - Gross hematuria Status: Acute (2) Bladder mass Code(s): N32.89 - Other specified disorders of bladder Status: Acute - Plan - GROSS HEMATURIA due to suspected bladder mass? -Off Cbi, resolved hematuria discontinue Campos catheter discussed with . Cystoscopy outpt when medically optimized - ACUTE RENAL FAILURE DUE TO OBSTRUCTIVE UROPATHY - s/p b/l perc nephr tubes, improving creatinine decreased IV fluid. R tube out IR placed another nephrostomy tube continue to monitor drainage - BLADDER MASS vs hematoma causing HYDRONEPHROSIS B/L L>R, concern for malignancy - urology eval, hx BPH, flomax and proscar started, dw urology - ANEMIA of acute blood loss due to hematuria, significant drop in hh, currently hemodynamically stable s/p 1 u prbc in prep for procedure. - HTN - cont bp control - COPD exacerbation w chronic hypoxic respiratory failure , continue oxygen, nebulizations and IV steroids. Slowly improving increase activity as tolerated. Tobacco cessation - Left PNA with sepsis. Stable persistent leukocytosis on steroids Continue IV Zosyn negative Legionella and pneumococcal urinary antigen. Blood cultures negative to date - Lethargy from anesthesia. Resolved. DISPO -SNF when arranged DVT prophylaxis - scd, anticoagulants ci due to hematuria PT recommends rehab Discharge Planning: Dc to SNF when arranged
[2018-10-11] MEDS: amLODIPine 5 MG Tablet PO SCH (08:14)
[2018-10-11] MEDS: Senna/Docusate Sodium 8.6/50 MG Tablet PO SCH ×2 (08:14→20:25)
[2018-10-11] MEDS: MethylPREDNISolone Sod Succinate Inj 40 MG/ML Vial IV.PUSH SCH (08:14)
[2018-10-11] MEDS: Magnesium Oxide 400 MG Tablet PO SCH ×2 (08:14→20:25)
[2018-10-11] MEDS: Budesonide-Formoterol 160/4.5 MCG 6 GM Inhaler INH SCH ×2 (08:15→20:29)
[2018-10-11] MEDS ORDERED: predniSONE 20 MG Tablet PO SCH (09:00)
--- NOTE | 2018-10-11 10:25 | P.PNPL ---
Subjective Interval history: Patient's right nephrostomy tube was dislodged and was replaced yesterday. Post procedure became lethargic from sedation. Now he is awake and alert. Afebrile. Physical Exam Vital signs: Vital Signs 10/10/18 12:00 10/10/18 12:04 10/10/18 16:00 Temperature 98.1 F 98.4 F Pulse Rate 86 85 Respiratory Rate 20 16 18 Blood Pressure 125/60 115/60 Pulse Oximetry 91 L 90 L 10/10/18 18:50 10/10/18 19:00 10/10/18 19:15 Temperature 98.0 F Pulse Rate 74 71 67 Respiratory Rate 14 21 16 Blood Pressure 143/63 H 134/72 124/64 Pulse Oximetry 91 L 94 L 98 10/10/18 19:30 10/10/18 19:45 10/10/18 20:00 Temperature 97.6 F Pulse Rate 67 67 67 Respiratory Rate 17 16 17 Blood Pressure 122/64 119/64 139/67 Pulse Oximetry 98 98 97 10/10/18 20:30 10/10/18 20:45 10/10/18 21:00 Temperature Pulse Rate 65 65 Respiratory Rate 16 22 Blood Pressure 159/66 H 139/63 Pulse Oximetry 98 98 97 10/10/18 21:30 10/10/18 22:00 10/10/18 23:00 Temperature 97.6 F Pulse Rate 71 62 60 Respiratory Rate 22 Blood Pressure 141/66 H Pulse Oximetry 94 L 10/10/18 23:41 10/11/18 00:00 10/11/18 01:00 Temperature Pulse Rate 65 74 62 Respiratory Rate 16 32 H Blood Pressure 136/60 Pulse Oximetry 96 94 L 10/11/18 02:00 10/11/18 03:00 10/11/18 04:00 Temperature 97.5 F L Pulse Rate 64 75 72 Respiratory Rate 16 Blood Pressure 147/72 H Pulse Oximetry 96 10/11/18 04:30 10/11/18 05:00 10/11/18 06:00 Temperature Pulse Rate 69 74 76 Respiratory Rate 18 Blood Pressure Pulse Oximetry 10/11/18 07:00 10/11/18 08:00 10/11/18 08:27 Temperature 98 F Pulse Rate 76 70 78 Respiratory Rate 20 16 Blood Pressure 130/64 Pulse Oximetry 97 97 10/11/18 09:00 Temperature Pulse Rate 77 Respiratory Rate Blood Pressure Pulse Oximetry Intake & Output 10/10/18 10/11/18 10/11/18 18:59 06:59 18:59 Intake Total 100 / 100 1200 / 1200 50 / 50 Output Total 1050 / 1050 Balance 100 / 100 150 / 150 50 / 50 Weight 83 kg Intake: IV 100 / 100 1100 / 1100 50 / 50 1/2 Normal Saline Inj 1,000 ML 1000 / 1000 @ 84 mls/hr IV.CONT .[id number] HO Rx#:[id number] Zosyn 3.375 GM Premix 50 ML @ 100 / 100 100 / 100 50 / 50 100 mls/hr IV.SIG Q6H HO Rx#: [id number] Oral 0 / 0 Other 100 / 100 Output: Wound Drainage 1050 / 1050 Left Back 750 / 750 Right Back 300 / 300 Other: Other Intake Source Saline Solution Date of Last Bowel Movement 10/06/18 10/10/18 - Constitutional no acute distress - Routine HEENT Exam Head: Present: normocephalic, atraumatic Eye: Present: EOMI, PERRL, normal accommodation, conjunctivae pink ENT: Present: mucous membranes moist - Routine Neck Exam Present: supple, full ROM, trachea midline - Routine Respiratory Exam Present: CTA bilaterally - Routine Cardiovascular Exam Present: RRR, S1, S2 - Routine Abdominal Exam Present: soft, normoactive bowel sounds - Routine Extremities Exam Present: full ROM, pulses intact - Routine Skin Exam Present: intact - Routine Neurological Exam Present: alert, oriented X3, CN II-XII intact - Urinary Catheter Management Indwelling Urethral Catheter Cath placed during this visit: yes, but has since been removed by the nurse Urethral indwelling: Yes Reason for continuing: Acute urinary retention Insertion date: 09/29/18 Insertion time: 17:20 Removal date: 10/08/18 Removal time: 09:30 Assessment and Plan - Plan 1. Respiratory insufficiency. 2. COPD exacerbation. 3. Left sided pneumonia 4. Active tobacco use. 5. Acute kidney injury. 6. Leukocytosis. 7. Anemia. 8. Hematuria. 9. Obstructive uropathy. 10. Bladder mass. Plan Continue with oxygen and maintain sats>92%. Bronchodilators( DuoNeb, Symbicort) Solu-Medrol 40 mg IV daily Check CXR in am BIPAP p.r.n. for respiratory distress. Incentive spirometry CXR 10/08 showed left basilar consolidation with small effusion PFT_ mod- severe obstructive lung disease. FEV1: 0.68 L, FEV/FVC 54% Continue with Zosyn and monitor for signs of infection (fever and WBC). Strep pneumonia and Legionella urinary Ag negative. Check sputum cx Monitor renal function, avoid nephrotoxins. Renal function is improving s/p replacement of right nephrostomy tube 10/10 Continue treatment plan.
[2018-10-11] MEDS: Finasteride 5 MG Tablet PO SCH (20:25)
[2018-10-12] MEDS: Sodium Chloride 0.45 % Inj 1,000 ML IV.CONT SCH (01:44)
[2018-10-12] MEDS: Piperacil/Tazo 3.375 GM Premix 50 ML IV.SIG SCH ×2 (02:13→09:58)
[2018-10-12 06:24] LABS: Baso % (Auto) 0.2 % (0.0-2.0); Eos # (Auto) 0.1 th/mm3 (0.0-0.4); Eos % (Auto) 0.4 % (0.0-4.0); Hematocrit 27.5 % (39.0-51.0); Lymph # (Auto) 1.2 th/mm3 (1.0-4.8); Mean Corpuscular HGB Conc 32.7 % (32.0-36.0); Mean Corpuscular Hemoglobin 30.7 pg (27.0-34.0); Mean Corpuscular Volume 93.9 fL (80.0-100.0); Mean Platelet Volume 9.1 fL (7.0-11.0); Mono # (Auto) 1.1 th/mm3 (0.0-0.9); Mono % (Auto) 5.3 % (0.0-8.0); Neut # (Auto) 17.7 th/mm3 (1.8-7.7); Neut % (Auto) 88.1 % (16.0-70.0); Platelet Count 270 th/mm3 (150-450); Red Blood Count 2.93 mil/mm3 (4.50-5.90); Red Cell Distribution Width 15.7 % (11.6-17.2); White Blood Count 20.1 th/mm3 (4.0-11.0)
[2018-10-12 06:48] LABS: Calcium 8.1 mg/dL (8.5-10.1); Carbon Dioxide 33.9 meq/L (21.0-32.0); Potassium 3.2 meq/L (3.5-5.1)
--- NOTE | 2018-10-12 06:57 | XR ---
EXAM DATE: 10/12/2018 6:43 AM EST AGE/SEX: 83 years / Male INDICATIONS: Short of breath, evaluate pneumonia CLINICAL DATA: This is the patient's subsequent encounter. Patient reports that signs and symptoms h ave been present for 1 week and indicates a pain score of 0/10. MEDICAL/SURGICAL HISTORY: Chronic obstructive pulmonary disease. hydronephrosis, bladder mass . bilateral nephrostomy tubes [place]PAR[place]: [facility] [place]/08/2018. . FINDINGS: A single AP view of the chest demonstrates some improvement in the left effusion and left lower lobe infiltrate. A tiny parenchymal consolidation remains. The effusion is largely resolved. Right lung is clear. Heart is normal in size. Partial visualization of a catheter involving the left upper quadran t. CONCLUSION: Essentially resolved left effusion with near complete resolution of the left lower lobe infiltrate . Electronically signed by: Jermain Hancock MD 10/12/2018 6:56 AM EST
[2018-10-12 07:36] LABS: Eosinophils 1 % (0-4); Lymphocytes 7 % (9-44); Metamyelocytes 1 % (0-1); Monocytes 4 % (0-8); Myelocytes 1 % (0-0); Platelet Estimate Normal (Normal); Platelet Morphology Normal (Normal)
[2018-10-12 08:52] VITALS: RESP 16
--- NOTE | 2018-10-12 09:05 | P.PN ---
Subjective Interval history: Follow-up COPD and pneumonia. He is doing good denies shortness of breath. No hematuria Physical Exam Vital signs: Vital Signs 10/11/18 10:00 10/11/18 11:00 10/11/18 12:00 Temperature 98.4 F Pulse Rate 71 69 83 Respiratory Rate 20 Blood Pressure 116/58 L Pulse Oximetry 96 10/11/18 12:46 10/11/18 13:00 10/11/18 14:00 Temperature Pulse Rate 82 71 70 Respiratory Rate 16 Blood Pressure Pulse Oximetry 10/11/18 15:00 10/11/18 15:03 10/11/18 15:32 Temperature 98.2 F Pulse Rate 77 65 78 Respiratory Rate 20 16 Blood Pressure 135/65 Pulse Oximetry 94 L 10/11/18 16:00 10/11/18 17:00 10/11/18 18:00 Temperature Pulse Rate 72 79 76 Respiratory Rate Blood Pressure Pulse Oximetry 10/11/18 19:00 10/11/18 19:50 10/11/18 20:00 Temperature 99.2 F Pulse Rate 75 74 73 Respiratory Rate 20 20 Blood Pressure 145/62 H Pulse Oximetry 96 97 10/11/18 21:00 10/11/18 22:00 10/11/18 23:00 Temperature Pulse Rate 64 66 80 Respiratory Rate Blood Pressure Pulse Oximetry 10/11/18 23:22 10/12/18 00:01 10/12/18 01:15 Temperature 98.0 F Pulse Rate 75 78 Respiratory Rate 20 18 Blood Pressure 166/74 H 154/72 H Pulse Oximetry 95 10/12/18 03:24 10/12/18 03:39 10/12/18 08:50 Temperature 98.1 F Pulse Rate 72 73 82 Respiratory Rate 22 18 16 Blood Pressure 136/63 Pulse Oximetry 96 Intake & Output 10/11/18 10/12/18 10/12/18 18:59 06:59 18:59 Intake Total 1060 / 1060 1383 / 1383 Output Total 1400 / 1400 1425 / 1425 Balance -340 / -340 -42 / -42 Weight 85.9 kg Intake: IV 100 / 100 903 / 903 1/2 Normal Saline Inj 1,000 ML 803 / 803 @ 60 mls/hr IV.CONT .[id number] [facility] Rx#:[id number] Zosyn 3.375 GM Premix 50 ML @ 100 / 100 100 / 100 100 mls/hr IV.SIG Q6H [facility] Rx#: [id number] Oral 960 / 960 480 / 480 Output: Urine Amount (Stoma) 1400 / 1400 1425 / 1425 Nephrostomy Tube Left 700 / 700 800 / 800 Nephrostomy Tube Right 700 / 700 625 / 625 Other: Date of Last Bowel Movement 10/11/18 10/11/18 # Bowel Movements 1 0 Narrative: pleasant 83yo w m aaox3 no distress heart s1s2 reg lungs with out wheezes abd soft nondt pos bs, bilateral per neph tube in place ext no edema , no calf tenderness Skin is warm no lesions - Urinary Catheter Management Indwelling Urethral Catheter Cath placed during this visit: yes, but has since been removed by the nurse Urethral indwelling: Yes Reason for continuing: Acute urinary retention Insertion date: 09/29/18 Insertion time: 17:20 Removal date: 10/08/18 Removal time: 09:30 Results - Labs CBC & Chem 7: 10/12/18 05:27 10/12/18 05:31 Laboratory Results - last 24 hr 10/12/18 10/12/18 05:27 05:31 WBC 20.1 H RBC 2.93 L Hgb 9.0 L Hct 27.5 L MCV 93.9 MCH 30.7 MCHC 32.7 RDW 15.7 Plt Count 270 MPV 9.1 Prelim Diff (Auto) Slide review pending Neut % (Auto) 88.1 H Lymph % (Auto) 6.0 L [place] % (Auto) 5.3 Eos % (Auto) 0.4 Baso % (Auto) 0.2 Neut # (Auto) 17.7 H Lymph # (Auto) 1.2 [place] # (Auto) 1.1 H Eos # (Auto) 0.1 Baso # (Auto) 0.0 WBC Differential Manual diff final Seg Neuts % (Manual) 85 H Band Neuts % (Manual) 1 Lymphocytes % (Manual) 7 L Monocytes % (Manual) 4 Eosinophils % (Manual) 1 Metamyelocytes % (Man) 1 Myelocytes % (Man) 1 H Abs Neuts (Manual) 17.7 H Differential Comment . Platelet Estimate Normal Platelet Morphology Normal Basophilic Stippling Faint H Sodium 144 Potassium 3.2 L Chloride 105 Carbon Dioxide 33.9 H Anion Gap 5 BUN 34 H Creatinine 1.37 H Estimated GFR 50 L Random Glucose 110 H Calcium 8.1 L Microbiology 10/08/18 13:25 Blood - Peripheral Aerobic Blood Culture - Preliminary No growth in 3 days 10/08/18 13:25 Blood - Peripheral Anaerobic Blood Culture - Preliminary No growth in 3 days 10/08/18 13:30 Blood - Peripheral Aerobic Blood Culture - Preliminary No growth in 3 days 10/08/18 13:30 Blood - Peripheral Anaerobic Blood Culture - Preliminary No growth in 3 days - Imaging Impressions Chest X-Ray 10/12/18 00:00 CONCLUSION: Essentially resolved left effusion with near complete resolution of the left lower lobe infiltrate. - Procedures B/l nephrostomy tube placement Second right nephrostomy tube placement Assessment and Plan - Assessment (1) Gross hematuria Code(s): R31.0 - Gross hematuria Status: Acute (2) Bladder mass Code(s): N32.89 - Other specified disorders of bladder Status: Acute - Plan - GROSS HEMATURIA due to suspected bladder mass? -Off Cbi, resolved hematuria discontinue Campos catheter discussed with . Cystoscopy outpt when medically optimized - ACUTE RENAL FAILURE DUE TO OBSTRUCTIVE UROPATHY - s/p b/l perc nephr tubes, improving creatinine discontinue IV fluid. R tube out IR placed another nephrostomy tube continue to monitor drainage - BLADDER MASS vs hematoma causing HYDRONEPHROSIS B/L L>R, concern for malignancy - urology eval, hx BPH, flomax and proscar started, dw urology - ANEMIA of acute blood loss due to hematuria, significant drop in hh, currently hemodynamically stable s/p 1 u prbc in prep for procedure. - HTN - cont bp control - COPD exacerbation w chronic hypoxic respiratory failure , continue oxygen, nebulizations and IV steroids. Slowly improving increase activity as tolerated. Tobacco cessation - Left PNA with sepsis. Stable persistent leukocytosis on steroids Continue IV Zosyn negative Legionella and pneumococcal urinary antigen. Blood cultures negative to date - Lethargy from anesthesia. Resolved. DISPO -SNF when arranged DVT prophylaxis - scd, anticoagulants ci due to hematuria PT recommends rehab Discharge Planning: Dc to SNF when arranged
[2018-10-12] MEDS: amLODIPine 5 MG Tablet PO SCH (09:53)
[2018-10-12] MEDS: Senna/Docusate Sodium 8.6/50 MG Tablet PO SCH (09:53)
[2018-10-12] MEDS: Magnesium Oxide 400 MG Tablet PO SCH (09:53)
[2018-10-12] MEDS: MethylPREDNISolone Sod Succinate Inj 40 MG/ML Vial IV.PUSH SCH (09:59)
[2018-10-12] MEDS: Budesonide-Formoterol 160/4.5 MCG 6 GM Inhaler INH SCH (10:04)
--- NOTE | 2018-10-12 12:28 | P.DS ---
Date of admission: 10/04/18 11:04 Primary care physician: UNKNOWN Brief History from admission: 83-year-old male with a past medical history significant for COPD presents to the emergency department for evaluation of hematuria. He reports that last night he started noticing blood in his urine. He states that approximately every 30 minutes he will have involuntary leaking of blood from his penis without urination. This is often preceded by deep pelvic pain. He denies any fever/chills. No urinary retention or difficulty with urination. No burning with urination. The patient denies noticing any clots in his urine. He has never had an episode like this before. He just moved from [place] and has not established with a new primary care provider. He is a poor historian [employer] although he cannot tell me why he takes the Lasix. He denies any chest pain or shortness of breath. No unintentional weight loss. No weakness/ fatigue. Positive pelvic pain. No nausea/vomiting/diarrhea. No lateralizing signs/symptoms. DS: Diagnosis - Discharge Diagnosis (1) Gross hematuria Status: Acute (2) Bladder mass Status: Acute DS: Medications - Discharge Medications Prescriptions: amlodipine [Norvasc] 5 mg PO DAILY #30 tab amoxicillin-pot clavulanate [Augmentin] 1 tab PO Q12H #10 tab finasteride 5 mg PO DAILY@1900 #30 tab ipratropium-albuterol 1 amp NEB Q2HR NEB PRN #300 ml PRN Reason: Dyspnea ipratropium-albuterol 1 amp NEB Q6HR NEB #360 ml prednisone 40 mg PO DAILY #10 tab tamsulosin 0.4 mg PO DAILY@1900 #30 cap DS: Summary Hospital Course: - GROSS HEMATURIA due to suspected bladder mass? -Off Cbi, resolved hematuria discontinue Campos catheter discussed with . Cystoscopy outpt when medically optimized - ACUTE RENAL FAILURE DUE TO OBSTRUCTIVE UROPATHY - s/p b/l perc nephr tubes, improving creatinine discontinue IV fluid. R tube out IR placed another nephrostomy tube continue to monitor drainage - BLADDER MASS vs hematoma causing HYDRONEPHROSIS B/L L>R, concern for malignancy - urology eval, hx BPH, flomax and proscar started, dw urology - ANEMIA of acute blood loss due to hematuria, significant drop in hh, currently hemodynamically stable s/p 1 u prbc in prep for procedure. - HTN - cont bp control - COPD exacerbation w chronic hypoxic respiratory failure , continue oxygen, nebulizations and wean steroids. Slowly improving increase activity as tolerated. Tobacco cessation - Left PNA with sepsis. Stable persistent leukocytosis on steroids switch to Augmentin discontinue IV Zosyn negative Legionella and pneumococcal urinary antigen. Blood cultures negative to date - Lethargy from anesthesia. Resolved. DISPO -SNF when arranged DVT prophylaxis - scd, anticoagulants ci due to hematuria PT recommends rehab - Time Spent with Patient Total time spent providing and/or coordinating discharge services: Greater than 30 minutes - Quality: VTE Deep Vein Thrombosis/Pulmonary Embolism Present on Admission: No Exam Vital signs: Vital Signs 10/11/18 12:46 10/11/18 13:00 10/11/18 14:00 Temperature Pulse Rate 82 71 70 Respiratory Rate 16 Blood Pressure Pulse Oximetry 10/11/18 15:00 10/11/18 15:03 10/11/18 15:32 Temperature 98.2 F Pulse Rate 77 65 78 Respiratory Rate 20 16 Blood Pressure 135/65 Pulse Oximetry 94 L 10/11/18 16:00 10/11/18 17:00 10/11/18 18:00 Temperature Pulse Rate 72 79 76 Respiratory Rate Blood Pressure Pulse Oximetry 10/11/18 19:00 10/11/18 19:50 10/11/18 20:00 Temperature 99.2 F Pulse Rate 75 74 73 Respiratory Rate 20 20 Blood Pressure 145/62 H Pulse Oximetry 96 97 10/11/18 21:00 10/11/18 22:00 10/11/18 23:00 Temperature Pulse Rate 64 66 80 Respiratory Rate Blood Pressure Pulse Oximetry 10/11/18 23:22 10/12/18 00:01 10/12/18 01:15 Temperature 98.0 F Pulse Rate 75 78 Respiratory Rate 20 18 Blood Pressure 166/74 H 154/72 H Pulse Oximetry 95 10/12/18 03:24 10/12/18 03:39 10/12/18 08:00 Temperature 98.1 F 97.2 F L Pulse Rate 72 73 85 Respiratory Rate 22 18 16 Blood Pressure 136/63 117/59 L Pulse Oximetry 96 96 10/12/18 08:50 Temperature Pulse Rate 82 Respiratory Rate 16 Blood Pressure Pulse Oximetry Intake & Output 10/11/18 10/12/18 10/12/18 18:59 06:59 18:59 Intake Total 1060 / 1060 1383 / 1383 Output Total 1400 / 1400 1425 / 1425 Balance -340 / -340 -42 / -42 Weight 85.9 kg Intake: IV 100 / 100 903 / 903 1/2 Normal Saline Inj 1,000 ML 803 / 803 @ 60 mls/hr IV.CONT .[id number] HO Rx#:[id number] Zosyn 3.375 GM Premix 50 ML @ 100 / 100 100 / 100 100 mls/hr IV.SIG Q6H HO Rx#: [id number] Oral 960 / 960 480 / 480 Output: Urine Amount (Stoma) 1400 / 1400 1425 / 1425 Nephrostomy Tube Left 700 / 700 800 / 800 Nephrostomy Tube Right 700 / 700 625 / 625 Other: Date of Last Bowel Movement 10/11/18 10/11/18 10/11/18 # Bowel Movements 1 0 Narrative: pleasant 83yo w m aaox3 no distress heart s1s2 reg lungs with out wheezes abd soft nondt pos bs, bilateral per neph tube in place ext no edema , no calf tenderness Skin is warm no lesions Results Procedures completed during hospitalization: B/l nephrostomy tube placement Second right nephrostomy tube placement Labs on day of discharge: Labs from last 24 hours 10/12/18 10/12/18 05:31 05:27 WBC 20.1 H RBC 2.93 L Hgb 9.0 L Hct 27.5 L MCV 93.9 MCH 30.7 MCHC 32.7 RDW 15.7 Plt Count 270 MPV 9.1 Prelim Diff (Auto) Slide review pending Neut % (Auto) 88.1 H Lymph % (Auto) 6.0 L [place] % (Auto) 5.3 Eos % (Auto) 0.4 Baso % (Auto) 0.2 Neut # (Auto) 17.7 H Lymph # (Auto) 1.2 [place] # (Auto) 1.1 H Eos # (Auto) 0.1 Baso # (Auto) 0.0 WBC Differential Manual diff final Seg Neuts % (Manual) 85 H Band Neuts % (Manual) 1 Lymphocytes % (Manual) 7 L Monocytes % (Manual) 4 Eosinophils % (Manual) 1 Metamyelocytes % (Man) 1 Myelocytes % (Man) 1 H Abs Neuts (Manual) 17.7 H Differential Comment . Platelet Estimate Normal Platelet Morphology Normal Basophilic Stippling Faint H Sodium 144 Potassium 3.2 L Chloride 105 Carbon Dioxide 33.9 H Anion Gap 5 BUN 34 H Creatinine 1.37 H Estimated GFR 50 L Random Glucose 110 H Calcium 8.1 L Preliminary micro results at discharge 10/08/18 13:25 Aerobic Blood Culture - Preliminary Blood - Peripheral No growth in 4 days Anaerobic Blood Culture - Preliminary No growth in 4 days 10/08/18 13:30 Aerobic Blood Culture - Preliminary Blood - Peripheral No growth in 4 days Anaerobic Blood Culture - Preliminary No growth in 4 days - Impressions ITS Impressions Abdomen/Pelvis CT 09/29/18 16:54 CONCLUSION: 1. Intrinsic urinary bladder mass and eccentric wall thickening along the left side suspicious for neoplasm. 2. Obstructive uropathy with mild to moderate hydronephrosis on the right and moderate to severe hydronephrosis on the left. Ureteral obstruction at the ureterovesical junction is a suspected on the left. Right ureteral obstruction may be due to bladder outlet obstruction. 3. Enlarged prostate which cannot be distinguished from the bladder mass. 4. Campos catheter in place with decompression of the bladder. 5. No evidence of local regional lymphadenopathy, pelvic sidewall involvement or destructive bone lesions. 6. 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 Abdomen/Bladder Ultrasound 10/02/18 00:00 CONCLUSION: 1. Distended bladder despite Campos. 2. Bilateral hydronephrosis Nephrostomy 10/10/18 00:00 CONCLUSION: 1. Uncomplicated right nephrostomy tube placement as above. Mild hematuria noted. Chest X-Ray 10/12/18 00:00 CONCLUSION: Essentially resolved left effusion with near complete resolution of the left lower lobe infiltrate. Discharge Plan - Discharge Disposition Patient Disposition: W/Home Health Service - Discharge Condition Condition: Stable - Discharge Order Discharge Orders: Discharge Order (Routine); Ordered 10/10/18 Ordered By: Seth Villafana - Physicians Team Primary Care Provider: UNKNOWN, Attending Provider: Seth Villafana Other Providers: Noel Reyes MD ; [employer] ; Tin Crystal MD ; [facility]
[2018-10-12 12:38] VITALS: PULSE 83
[2018-10-12 13:34] VITALS: BP 136/63; TEMP 98.2; O2SAT 94
[2018-10-12] MEDS ORDERED: Amoxicillin/Clavulanate 875/125 MG Tablet PO SCH (21:00)
[2018-10-13] MEDS ORDERED: predniSONE 20 MG Tablet PO SCH (09:00)
== END 2018-10-12 16:14 ==
LOC: NEPD 15:40 → NEDA 19:41 → INTOOBSV 19:41 → N07 23:07 → HPAC 10-10 20:40 → HCPC 10-10 21:14 → N06 10-11 23:53
PROVIDERS: ADMIT Internal Medicine; ATTEND Internal Medicine